=== PATIENT | male | born 1970 | race Caucasian/White ===

== ENCOUNTER 2018-06-28 00:03 | Inpatient (IN) | payer BC, SELFPAY ==
[2018-06-28] VITALS (42 sets, daily range): BP systolic 111–154; BP diastolic 59–89; PULSE 55–80; RESP 11–28; TEMP 36.5–38.9; O2SAT 81–99
--- NOTE | 2018-06-28 00:06 | W.ED.GENAD ---
Discharge Plan Disposition Patient Disposition: [facility] INPATIENT Condition: Fair Discharge Details Chief Complaint: Chest Pain Clinical Impression: Cholelithiasis, Pneumobilia Primary Care Provider: Obed Castro ED Provider: Sunny Squires [place] and New Rx's Prescriptions: No Action aspirin [Aspir-81] 81 MG tablet,delayed release (DR/EC) 81 mg PO QAM RF: 0 losartan 50 mg Tablet 50 mg PO DAILY RF: 0 torsemide 20 mg Tablet 20 mg PO DAILY RF: 0 spironolactone 25 mg Tablet 25 mg PO DAILY RF: 0 metoprolol succinate 25 mg Tablet Extended Release 24 Hr 25 mg PO DAILY RF: 0 Medical Decision Making Patient presenting with chest and abdominal pain. He is very uncomfortable. Vital signs are okay other than blood pressure being elevated. Abdomen is exquisitely tender in the right upper quadrant with a positive Rosa sign. Some tenderness in the epigastric and right lower quadrant but I suspect his symptoms are being caused by biliary colic/disease. Initial EKG has a fair amount of artifact but does not appear to have anything acute. Once we get him more comfortable, we will repeat this. IV established and fluids started. Laboratory studies obtained. Dilaudid and Zofran given for symptoms. CT scan of the abdomen pelvis ordered. Lab studies show a white count of 13. Liver function is normal. Chemistries with mild hyponatremia. Some mild renal insufficiency as well. He is on diuretics. He received a total of 1.5 mg of Dilaudid and 15 mg of Toradol. He is more comfortable but still has significant pain. CT scan shows cholelithiasis with pneumobilia. Otherwise unremarkable scan. On repeat evaluation he looks still exquisitely tender in the right upper quadrant with guarding and Roas sign. Case discussed with surgeon, Dr. Membreno. Patient is afebrile with normal LFTs. Not likely to be cholangitis despite the pneumobilia. Will admit for pain control and fluids and keep n.p.o. No antibiotics for now. Admitted to surgical service for further management. Lab Data Lab results reviewed: Yes I reviewed the patient's lab results. ECG Data Attestation: I personally reviewed and interpreted this ECG (s) as follows: Prior ECG tracings: not available for review Interpretation: Normal sinus rhythm at 65 with a PVC. Normal intervals. Nonspecific ST flattening. Nothing acute. HPI General Mode of arrival: ambulatory. Date/Time Provider Initiated Documentation: 06/28/18 00:06. Limitations to Documentation: no limitations. Information obtained by: patient. HPI Narrative: Patient presents to the ED with complaints of chest and abdominal pain. Pain started about 5 hours ago. It has waxed and waned in terms of intensity but has never gone away. States that it feels like he is in a vice. He has nausea but no vomiting. He did make himself vomit thinking it would make him feel better but it did not. Some radiation of discomfort to the back but mostly in the chest and upper abdomen region. Some mild shortness of breath. No diaphoresis or lightheadedness. Has never had this previously. Does have a history of hypertension and cardiomyopathy with the last EF that he recalls being about 50%. He has never smoked. He had prediabetes but with weight loss and exercise that is no longer an issue. He has not had any heart attacks that he is aware of. 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 Related Data Home Medications Medication Instructions Recorded Confirmed aspirin [Aspir 81] 81 mg PO QAM 10/28/12 06/28/18 losartan 50 mg PO DAILY 06/28/18 06/28/18 metoprolol succinate 25 mg PO DAILY 06/28/18 06/28/18 spironolactone 25 mg PO DAILY 06/28/18 06/28/18 torsemide 20 mg PO DAILY 06/28/18 06/28/18 Allergies Allergy/AdvReac Type Severity Reaction Status Date / Time amoxicillin [Amoxicillin] Allergy Skin Rash Unverified 08/11/15 06:34 Review of Systems Constitutional Denies chills, Denies fever(s), Denies headache(s) and Denies weakness Eyes Denies eye discharge and Denies eye pain ENT Denies otalgia, Denies headache(s), Denies neck pain, Denies sinus pain and Denies sore throat Cardiovascular Reports chest pain, Denies diaphoresis, Denies syncope, Denies pedal edema, Denies edema, Denies lightheadedness, Denies radiating jaw, neck or arm pain, Denies palpitations and Reports dyspnea Respiratory Denies cough and Reports dyspnea Gastrointestinal Reports abdominal pain, Denies diarrhea, Reports nausea and Denies vomiting Genitourinary Denies hematuria, Denies dysuria and Denies flank pain Musculoskeletal Reports back pain, Denies myalgias, Denies arthralgias, Denies neck pain and Denies numbness Integumentary/Breasts Denies erythema and Denies rash Neurologic Denies syncope, Denies headache(s), Denies focal weakness, Denies numbness and Denies weakness Endocrine Denies palpitations PFS Medical History Cardiomyopathy (Chronic) HTN (hypertension) (Chronic) Social History Smoking/Tobacco Use Status: Current-Occasional tobacco type: smokeless tobacco Surgical History S/P ablation operation for arrhythmia (Inactive) Exam Const General: cooperative, healthy appearing, uncomfortable, in distress and not diaphoretic Orientation: alert, awake and oriented x3 HENMT Head: normocephalic and atraumatic Mouth: moist mucous membranes Eyes Sclera: sclerae normal Neck Neck: trachea midline and supple Resp Effort & Inspection: tachypneic Auscultation: clear to auscultation bilaterally Cardio Rate: regular rate Rhythm: regular rhythm Heart Sounds: S1 normal and S2 normal Pulses: normal peripheral pulses GI Inspection: normal to inspection Palpation: soft, guarding in the RUQ and tender in the RUQ and Rosa's sign positive Skin General skin exam: no rashes or lesions noted Neuro General: alert, oriented x3, no focal motor deficits and CN's II-XI intact bilaterally Extrem General: normal to inspection and no clubbing, cyanosis or edema
[2018-06-28] MEDS: HYDROmorphone 2 MG/ML VIAL 0.5 MG IVP ×9 (00:29→20:57)
[2018-06-28] MEDS: Lactated Ringers 1,000 ML 150 ML IV ×6 (00:30→20:41)
[2018-06-28] MEDS: Ondansetron 4 MG/2 ML VIAL IVP (00:32)
[2018-06-28 00:41] LABS: Abs Immature Grans 0.02 k/cumm (0.0-0.09); Absolute Basophil Count 0.02 k/cumm (0.0-0.2); Absolute Eosinophil Count 0.07 k/cumm (0.0-0.7); Absolute Lymphocyte Count 1.76 k/cumm (1.2-3.4); Absolute Monocyte Count 0.96 k/cumm (0.11-0.7); Basophils % 0.2; Eosinophils % 0.6; HCT 42.6 % (40.0-50.0); HGB 14.6 g/dL (13.5-17.5); Immature Grans % 0.2; Lactate-non-spesis 1.2 mmol/L (0.6-1.4); Lymphocytes % 14.5; Mean Corp. HGB Concentration 34.3 g/dL (32.0-36.0); Mean Corpuscular Volume 84.5 fL (80-95); Mean Platelet Volume 10.3 fL (8.0-11.0); Monocytes % 7.9; Neutrophils % 76.6; Platelet Count 261 x1000/uL (130-400); RBC 5.04 m/cumm (4.50-6.00); White Blood Cell Count 12.13 k/cumm (4.4-10.8)
[2018-06-28 00:47] LABS: Absolute Neutrophil Count 9.29 k/cumm (1.2-6.7)
[2018-06-28 00:53] LABS: Lipase 109 U/L (73-393)
[2018-06-28] MEDS: Ketorolac 15 MG/ML VIAL IVP (00:56)
[2018-06-28 01:01] LABS: ALT 32 U/L (12-78); AST 19 U/L (15-37); Albumin 4.1 g/dL (3.4-5.0); Alkaline Phosphatase 55 U/L (46-116); Anion Gap 10.3 mmol/L (3-11); BUN 27 mg/dL (7-18); Bilirubin, Total 0.8 mg/dL (0.2-1.0); CO2 27.7 mmol/L (21.0-32.0); CREATININE 1.33 mg/dL (0.70-1.30); Chloride 95 mmol/L (98-107); Estimated GFR 57.15 (mL/min/1.73m2); Glucose 140 mg/dL (70-100); Potassium 3.6 mmol/L (3.5-5.1); Sodium 133 mmol/L (136-145)
[2018-06-28 01:04] LABS: Troponin I < 0.02 ng/mL (0.00-0.06)
[2018-06-28] MEDS: Omnipaque 350 MG/ML 100 ML BTL IJ (01:39)
--- NOTE | 2018-06-28 01:40 | DI.CT_ITS ---
SYMPTOMS/DIAGNOSIS: ABD PAIN WITH RUQ TENDERNESS/GUARDING ABDOMINAL AND PELVIC CT: The examination was carried out according to the usual protocol with intravenous administration of 100 cc's of Omnipaque 350. The lower thorax is unremarkable. A patchy liver is demonstrated. There is cholelithiasis and gas seen in the liver secondary to a sphincterotomy or possibly recent instrumentation. The pancreas is normal. There is no ductal dilatation or evidence of stones. The spleen is unremarkable. The adrenals are normal. The kidneys and ureters were evaluated and there are nonobstructing renal calculi. There is no evidence of hydronephrosis or hydroureter or ureterolithiasis. Colonic diverticulosis is noted without evidence of diverticulitis. There is nothing to suggest an acute appendix. The bladder and reproductive organs as visualized are unremarkable. There is no evidence of free air or free fluid in the intraperitoneal space. The soft tissues are unremarkable. There is no evidence of an abdominal aortic aneurysm. There is no evidence of lymphadenopathy. SUMMARY: Cholelithiasis is demonstrated. No acute abnormality is apparent.
--- NOTE | 2018-06-28 02:02 | DI.VRAD_ITS ---
EXAM: CT Abdomen and Pelvis With Intravenous Contrast EXAM DATE/TIME: 06/28/2018 12:26 AM CLINICAL HISTORY: 47 years old, male; Pain; Abdominal pain; Tenderness; Right upper quadrant (ruq); Patient HX: Abd. Pain, ruq pain and tenderness, vomiting TECHNIQUE: Axial computed tomography images of the abdomen and pelvis with intravenous contrast. All CT scans at this facility use at least one of these dose optimization techniques: automated exposure control; mA and/or kV adjustment per patient size (includes targeted exams where dose is matched to clinical indication); or iterative reconstruction. Coronal and sagittal reformatted images were created and reviewed. CONTRAST: 100 ml of Omnipaque 350 administered intravenously. COMPARISON: CT RENAL COLIC WO CONTRAST 08/11/2015 7:33 AM FINDINGS: Lower thorax: No acute findings. ABDOMEN: Liver: Hepatic steatosis. Gallbladder and bile ducts: Cholelithiasis. Pneumobilia, correlate with history of previous sphincterotomy or recent instrumentation. Pancreas: Normal. No ductal dilation. Spleen: Normal. No splenomegaly. Adrenals: Normal. No mass. Kidneys and ureters: Nonobstructing renal calculi. No obstructing urinary calculus or hydronephrosis. Stomach and bowel: Colonic diverticula. Appendix: No evidence of appendicitis. PELVIS: Bladder: Unremarkable as visualized. Reproductive: Unremarkable as visualized. ABDOMEN and PELVIS: Intraperitoneal space: Normal. No free air. No significant fluid collection. Bones/joints: No acute fracture. No dislocation. Soft tissues: Unremarkable. Vasculature: Normal. No abdominal aortic aneurysm. Lymph nodes: Normal. No enlarged lymph nodes. IMPRESSION: No acute finding. Cholelithiasis. Dictated and Authenticated by: Pankaj Coyle MD. Ordering:BHARTI FLEMING MD
[2018-06-28 09:25] LABS: Abs Immature Grans 0.01 k/cumm (0.0-0.09); Absolute Basophil Count 0.02 k/cumm (0.0-0.2); Absolute Eosinophil Count 0.07 k/cumm (0.0-0.7); Absolute Lymphocyte Count 1.24 k/cumm (1.2-3.4); Absolute Monocyte Count 0.79 k/cumm (0.11-0.7); Absolute Neutrophil Count 8.87 k/cumm (1.2-6.7); Basophils % 0.2; Eosinophils % 0.6; HCT 39.8 % (40.0-50.0); HGB 13.6 g/dL (13.5-17.5); Immature Grans % 0.1; Lymphocytes % 11.3; Mean Corp. HGB Concentration 34.2 g/dL (32.0-36.0); Mean Corpuscular Hemoglobin 29.1 pg (27.0-33.0); Mean Platelet Volume 9.7 fL (8.0-11.0); Monocytes % 7.2; Neutrophils % 80.6; Platelet Count 208 x1000/uL (130-400); RBC 4.68 m/cumm (4.50-6.00)
[2018-06-28 09:32] LABS: Lipase 92 U/L (73-393)
[2018-06-28 09:37] LABS: ALT 54 U/L (12-78); AST 38 U/L (15-37); Albumin 3.5 g/dL (3.4-5.0); Alkaline Phosphatase 56 U/L (46-116); Anion Gap 8.8 mmol/L (3-11); BUN 24 mg/dL (7-18); Bilirubin, Total 0.8 mg/dL (0.2-1.0); CO2 28.2 mmol/L (21.0-32.0); CREATININE 1.12 mg/dL (0.70-1.30); Calcium 9.3 mg/dL (8.5-10.1); Chloride 97 mmol/L (98-107); Glucose 125 mg/dL (70-100); Potassium 3.6 mmol/L (3.5-5.1); Sodium 134 mmol/L (136-145)
--- NOTE | 2018-06-28 10:08 | PDOC.CMIN ---
Care Management Initial Assess REASON FOR HOSPITALIZATION:: Cholelithiasis, Pneumobilia PAST MEDICAL HISTORY/PAST SURGICAL HISTORY:: Cardiomyopathy, HTN, ablation operation for arrythmia PREVIOUS FUNCTIONAL STATUS/SOCIAL/FAMILY SUPPORTS:: Vitor resides in [place]. 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 He is but remains in close contact with his former , Kassidy who serves as his POC. CURRENT FUNCTIONAL STATUS:: Vitor is readying for surgery, he appears alert and oriented and reports he is looking forward to having some water once he returns from the Operating Room, but can not really imagine having an appetite at this time. ADVANCE DIRECTIVES:: None on file at [facility]. Has patient been provided with information about the portal?: Yes Did the patient sign up for the portal?: No CODE STATUS:: Full Code INSURANCE COVERAGE / FINANCIAL ISSUES:: BC/BS CURRENT HOME/COMMUNITY SERVICES/EQUIPMENT:: No current services/equipment. PRIMARY CARE PHYSICIAN:: Obed Castro POTENTIAL DISCHARGE NEEDS:: Follow up appointment with PCP. PATIENT/FAMILY EDUCATION NEEDS:: Review discharge instructions, discuss Ask Me Three. ANTICIPATED BARRIERS TO DISCHARGE:: None identifed. TRANSPORTATION:: Via private vehicle. PLAN:: Vitor will eventually return home when ready per MD. He will follow up with his PCP and plan of care as prescribed. No additional supports anticipated at this time. He will transport via private vehicle with family.
--- NOTE | 2018-06-28 10:19 | INITIAL_ITS ---
Care Management Initial Assess REASON FOR HOSPITALIZATION:: Cholelithiasis, Pneumobilia PAST MEDICAL HISTORY/PAST SURGICAL HISTORY:: Cardiomyopathy, HTN, ablation operation for arrythmia PREVIOUS FUNCTIONAL STATUS/SOCIAL/FAMILY SUPPORTS:: Vitor resides in [place]. 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 He is but remains in close contact with his former , Kassidy who serves as his POC. CURRENT FUNCTIONAL STATUS:: Vitor is readying for surgery, he appears alert and oriented and reports he is looking forward to having some water once he returns from the Operating Room, but can not really imagine having an appetite at this time. ADVANCE DIRECTIVES:: None on file at [facility]. Has patient been provided with information about the portal?: Yes Did the patient sign up for the portal?: No CODE STATUS:: Full Code INSURANCE COVERAGE / FINANCIAL ISSUES:: BC/BS CURRENT HOME/COMMUNITY SERVICES/EQUIPMENT:: No current services/equipment. PRIMARY CARE PHYSICIAN:: Obed Castro POTENTIAL DISCHARGE NEEDS:: Follow up appointment with PCP. PATIENT/FAMILY EDUCATION NEEDS:: Review discharge instructions, discuss Ask Me Three. ANTICIPATED BARRIERS TO DISCHARGE:: None identifed. TRANSPORTATION:: Via private vehicle. PLAN:: Vitor will eventually return home when ready per MD. He will follow up with his PCP and plan of care as prescribed. No additional supports anticipated at this time. He will transport via private vehicle with family.
[2018-06-28] MEDS: ACETAMINOPHEN 1,000 MG/100 ML BTL 400 MG IVPB (10:25)
[2018-06-28] MEDS: Ketorolac 30 MG/ML VIAL IVP ×3 (10:25→23:29)
[2018-06-28] MEDS: PIPERACILLIN/TAZO 3.375 GM in Normal Saline 50 ML IVPB ×3 (10:45→22:19)
--- NOTE | 2018-06-28 11:43 | W.PM.HP.N ---
Date of service: 06/28/18 Time of Service: 11:43 Assessment and Plan (1) Cholecystitis: Current visit: Yes Status: Acute A\\ RUQ pain with gallstones and pneumobilia on CT scan WBC count 11, LFT's normal, Lipase normal. Contiued abdominal pain dispite NPO status and pain meds P\\ Laparoscopic Cholecystectomy possible IOC, possible open Will get ECHO results Will ask for a nerve block from anesthesia. Risks, benefits and complications were reviewed with the patient. Complications include but are not limited to bleeding, pain, infection, bile leak, injury to bowel, stomach, common bile duct, adverse reaction to the medications, Cardiac complications due to his Cardiomyopathy. Questions were entertained and answered to his satisfaction and he wished to proceed. No guarantees were given or implied. History of Present Illness Chief Complaint: Abdominal pain Narrative: Mr. Alaniz is a pleasant 47 year old male who after doing a 24 nancy fast ate dinner and almost immediatly developed severe RUQ and epigastric abdominal pain. He denies N/V. He was seen in the ED and workup revealed a slightly increased WBC count and Cholelithiasis with pneumobilia. He was admitted to our service at 02:30 am. This morning he developed another wave of severe abdominal pain and a fever. repeat labs showed improved WBC count and still normal LFT's. Lipase was also normal. Blood cultures were obtained and Zosyn was started. He was given a GI cocktail which did not help his pain. He was then given Toradol which did help. 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 Patient had Cardiac ablation. EF has gone from 14% to 49 %. last echo in January of 2018. Review of Systems Constitutional Reports system reviewed and no additional complaints, except as docu and Reports fever(s) Cardiovascular Comments: Hx of cardiomyopathy with Afib, s/p ablation. EF of 49-50 on last ECHO done in January 2018 Respiratory Reports system reviewed and no additional complaints, except as docu Gastrointestinal Reports as per HPI Genitourinary Reports system reviewed and no additional complaints, except as docu Musculoskeletal Reports system reviewed and no additional complaints, except as docu Hematologic/Lymphatic Denies easy bleeding and Denies easy bruising [facility] Family History Father Pancreatic cancer Medical History Cardiomyopathy (Chronic) HTN (hypertension) (Chronic) Social History housing: house marital status: single current occupational status: employed 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 pets and animals: Yes (dog) Smoking/Tobacco Use Status: Current-Occasional tobacco type: smokeless tobacco alcohol intake: current alcohol intake frequency: a few times a month substance use type: does not use Surgical History S/P ablation operation for arrhythmia (Inactive) Meds Home Medications Medication Instructions Recorded Confirmed Type aspirin [Aspir 81] 81 mg PO QAM 10/28/12 06/28/18 History losartan 50 mg PO DAILY 06/28/18 06/28/18 History metoprolol succinate 25 mg PO DAILY 06/28/18 06/28/18 History spironolactone 25 mg PO DAILY 06/28/18 06/28/18 History torsemide 20 mg PO DAILY 06/28/18 06/28/18 History Allergies Allergy/AdvReac Type Severity Reaction Status Date / Time amoxicillin [Amoxicillin] Allergy Skin Rash Unverified 08/11/15 06:34 Exam Const General: cooperative, comfortable and well groomed [facility] Head: normocephalic and atraumatic Resp Effort & Inspection: normal respiratory effort Auscultation: clear to auscultation bilaterally Cardio Rate: regular rate Rhythm: regular rhythm Heart Sounds: no gallops, no murmurs and no rubs GI Inspection: normal to inspection Palpation: soft and tender in the epigastrum and in the RUQ Auscultation: normal bowel sounds Extrem General: normal to inspection and no clubbing, cyanosis or edema Results Labs : 06/28/18 09:15 06/28/18 09:15 Laboratory Results - last 24 hr 06/28/18 06/28/18 06/28/18 00:24 00:24 00:24 WBC 12.13 H RBC 5.04 Hgb 14.6 Hct 42.6 MCV 84.5 MCH 29.0 MCHC 34.3 RDW 12.0 Plt Count 261 MPV 10.3 Immature Gran % 0.2 Neutrophils % 76.6 Lymphocytes % 14.5 Monocytes % 7.9 Eosinophils % 0.6 Basophils % 0.2 Absolute Neutrophils 9.29 H Absolute Lymphocytes 1.76 Absolute Monocytes 0.96 H Absolute Eosinophils 0.07 Absolute Basophils 0.02 Sodium 133 L Potassium 3.6 Chloride 95 L Carbon Dioxide 27.7 Anion Gap 10.3 BUN 27 H Creatinine 1.33 H Estimated GFR/1.73 m2 57.15 Glucose 140 H Lactate 1.2 Calcium 10.0 Magnesium 2.0 Total Bilirubin 0.8 AST 19 ALT 32 Alkaline Phosphatase 55 Troponin I < 0.02 Total Protein 8.0 Albumin 4.1 Lipase 06/28/18 06/28/18 06/28/18 00:24 04:30 09:15 WBC RBC Hgb Hct MCV MCH MCHC RDW Plt Count MPV Immature Gran % Neutrophils % Lymphocytes % Monocytes % Eosinophils % Basophils % Absolute Neutrophils Absolute Lymphocytes Absolute Monocytes Absolute Eosinophils Absolute Basophils Sodium 134 L Potassium 3.6 Chloride 97 L Carbon Dioxide 28.2 Anion Gap 8.8 BUN 24 H Creatinine 1.12 Estimated GFR/1.73 m2 >= 60.00 Glucose 125 H Lactate Calcium 9.3 Magnesium Total Bilirubin 0.8 AST 38 H ALT 54 Alkaline Phosphatase 56 Troponin I Cancelled Total Protein 7.0 Albumin 3.5 Lipase 109 06/28/18 06/28/18 09:15 09:15 WBC 11.00 H RBC 4.68 Hgb 13.6 Hct 39.8 L MCV 85.0 MCH 29.1 MCHC 34.2 RDW 12.0 Plt Count 208 MPV 9.7 Immature Gran % 0.1 Neutrophils % 80.6 Lymphocytes % 11.3 Monocytes % 7.2 Eosinophils % 0.6 Basophils % 0.2 Absolute Neutrophils 8.87 H Absolute Lymphocytes 1.24 Absolute Monocytes 0.79 H Absolute Eosinophils 0.07 Absolute Basophils 0.02 Sodium Potassium Chloride Carbon Dioxide Anion Gap BUN Creatinine Estimated GFR/1.73 m2 Glucose Lactate Calcium Magnesium Total Bilirubin AST ALT Alkaline Phosphatase Troponin I Total Protein Albumin Lipase 92 Last Vital Signs Temp 102.0 F H 06/28/18 09:30 Pulse 80 06/28/18 09:30 Resp 16 06/28/18 09:30 BP 122/76 06/28/18 09:30 Pulse Ox 92 L 06/28/18 09:30
[2018-06-28] MEDS: Bupivacaine 0.25% Pres-Free 30 ML VIAL (13:30)
[2018-06-28] MEDS: Cellulose,Oxidized 4X8 1 PACKET MC ×2 (14:38→15:07)
--- NOTE | 2018-06-28 14:42 | GB_PTH ---
PATIENT: Vitor Martinez LOC: U#:[id number] AGE/SX: 47/M ROOM: [id number] RE06/28/[address]: Deloris Schilling MD : [id number] BED: A DIS: 07/02/2018 SPEC #: [id number] RECD: 07/02/18 12:18 STATUS: LAXMI REQ #: [id number] TRACEE: 06/28/18 14:[address]: Deloris Schilling DEPT: Surgical Specimen RECD BY: Amber Cullen ENTERED: 07/02/18 12:19 SP TYPE: GB OTHR DR: Sergey Castro Tissues: 1 - GALLBLADDER Procedures: GROSS AND MICRO LEVEL 3 Comments: [id number]
[2018-06-28] MEDS: Lidocaine 1% Pres-Free 5 ML VIAL (15:12)
[2018-06-28] MEDS: ACETAMINOPHEN 1,000 MG/100 ML BTL 100 MG (16:34)
[2018-06-28] MEDS: Normal Saline Flush 10 ML SYR ×2 (17:04)
[2018-06-28] MEDS: Normal Saline Flush 10 ML SYR IVP ×3 (18:50→22:20)
[2018-06-28] MEDS: oxyCODONE 5 MG TAB PO (22:20)
[2018-06-28] MEDS: Normal Saline 500 ML IV (23:00)
[2018-06-28] MEDS: Acetaminophen 325 MG TAB 650 MG PO (23:30)
[2018-06-28] MEDS: HYDROmorphone 2 MG/ML VIAL IVP (23:31)
[2018-06-29] VITALS: BP 112/72; PULSE 65; RESP 20; TEMP 38.3; O2SAT 91
[2018-06-29] MEDS: Normal Saline Flush 10 ML SYR IVP ×8 (01:34→22:02)
[2018-06-29] MEDS: HYDROmorphone 2 MG/ML VIAL IVP ×7 (01:35→21:59)
[2018-06-29 04:05] VITALS: BP 141/75; PULSE 63; RESP 16; TEMP 36.8; O2SAT 95
[2018-06-29] MEDS: PIPERACILLIN/TAZO 3.375 GM in Normal Saline 50 ML IVPB ×4 (04:21→22:02)
[2018-06-29] MEDS: oxyCODONE 5 MG TAB PO ×4 (04:22→22:00)
[2018-06-29] MEDS: Lactated Ringers 1,000 ML 100 ML IV (06:55)
[2018-06-29 08:00] VITALS: BP 121/67; PULSE 72; RESP 21; TEMP 37.2; O2SAT 90
[2018-06-29 08:03] LABS: Abs Immature Grans 0.02 k/cumm (0.0-0.09); Absolute Basophil Count 0.01 k/cumm (0.0-0.2); Absolute Lymphocyte Count 0.84 k/cumm (1.2-3.4); Absolute Neutrophil Count 11.47 k/cumm (1.2-6.7); Basophils % 0.1; HCT 37.1 % (40.0-50.0); HGB 12.2 g/dL (13.5-17.5); Immature Grans % 0.2; Lymphocytes % 6.5; Mean Corp. HGB Concentration 32.9 g/dL (32.0-36.0); Mean Corpuscular Volume 88.3 fL (80-95); Mean Platelet Volume 10.6 fL (8.0-11.0); Monocytes % 4.3; Neutrophils % 88.9; Platelet Count 182 x1000/uL (130-400); RBC Distribution Width 12.2 % (11.8-14.1)
[2018-06-29 08:04] LABS: Absolute Monocyte Count 0.55 k/cumm (0.11-0.7)
[2018-06-29] MEDS: Ketorolac 30 MG/ML VIAL IVP ×2 (08:15→18:51)
[2018-06-29] MEDS: Acetaminophen 325 MG TAB 650 MG PO ×3 (08:16→22:00)
[2018-06-29 08:23] LABS: ALT 173 U/L (12-78); AST 88 U/L (15-37); Albumin 2.9 g/dL (3.4-5.0); Alkaline Phosphatase 63 U/L (46-116); Anion Gap 8.7 mmol/L (3-11); BUN 15 mg/dL (7-18); Bilirubin, Total 1.6 mg/dL (0.2-1.0); CO2 27.3 mmol/L (21.0-32.0); CREATININE 1.07 mg/dL (0.70-1.30); Calcium 8.4 mg/dL (8.5-10.1); Chloride 100 mmol/L (98-107); Glucose 127 mg/dL (70-100); Potassium 4.2 mmol/L (3.5-5.1); Sodium 136 mmol/L (136-145); Total Protein 6.7 g/dL (6.4-8.2)
[2018-06-29] MEDS: Metoprolol CR 25 MG TABCR PO (08:51)
[2018-06-29] MEDS: Spironolactone 25 MG TAB PO (08:51)
[2018-06-29] MEDS: Losartan 50 MG TAB PO (08:51)
--- NOTE | 2018-06-29 09:31 | W.PM.PROGNOT ---
Date of Service Date of service: 06/29/18 Time of Service: 09:31 Assessment and Plan (1) Cholelithiasis with acute on chronic cholecystitis: Current visit: Yes Status: Chronic (2) S/P laparoscopic cholecystectomy: Current visit: Yes Status: Acute A\\ POD #1 s/p Lap. [place]. Difficult surgery with some bleeding from Liver and spill of Bile from the gallbladder. Having some pain and WBC count is above 12. P\\ 1. Infection: No fevers but increased WBC count. This may be all inflammatory. Will keep on IV antibiotics for 24 more hours and recheck CBC tomorrow. 2. Pain: Starting to Give Dilauded less frequently. Will try to wean him to Oxycodon and Toradol and Tylenol. 3. Activity: Up and walking the Hallways 4. Elevated LFT's: Most likely due to the bleeding and the spill of Bile. Will recheck tomorrow. 5. Diet: low fat regular diet 6. Disposition: Hopefully home tomorrow if his labs look better and he is not taking any more dilauded. Subjective Interval history since last seen: Mr. Martinez is doing OK this am. he still is having some pain especailly with deep breathing. He is passing flatus and is drinking fluids. he has eaten a little bit this morning. No BM since admission. Exam Const General: cooperative and no acute distress Eyes Sclera: scleral abnormality (slight yellow discoloration noted) bilaterally Resp Effort & Inspection: normal respiratory effort Auscultation: clear to auscultation bilaterally Cardio Rate: regular rate Rhythm: regular rhythm Heart Sounds: no gallops, no murmurs and no rubs GI Inspection: incision (c/d/i) Palpation: soft and tender (as expected around the incisions in the rUQ and epigastric area) Auscultation: normal bowel sounds Objective Objective Clinical Data: Abnormal lab results 06/28/18 06/29/18 06/29/18 Range/Units 09:15 07:08 07:08 WBC 12.90 H (4.4-10.8) k/cumm RBC 4.20 L (4.50-6.00) m/cumm Hgb 12.2 L (13.5-17.5) g/dL Hct 37.1 L (40.0-50.0) % Absolute Neutrophils 11.47 H (1.2-6.7) k/cumm Absolute Lymphocytes 0.84 L (1.2-3.4) k/cumm Sodium 134 L (136-145) mmol/L Chloride 97 L (98-107) mmol/L BUN 24 H (7-18) mg/dL Glucose 125 H 127 H (70-100) mg/dL Calcium 8.4 L (8.5-10.1) mg/dL Total Bilirubin 1.6 H (0.2-1.0) mg/dL AST 38 H 88 H (15-37) U/L ALT 173 H (12-78) U/L Albumin 2.9 L (3.4-5.0) g/dL Vital Signs Temperature 98.2 F 06/29/18 04:05 Temperature Source Tympanic 06/29/18 04:05 Pulse 63 06/29/18 04:05 Pulse Rhythm Regular 06/28/18 23:30 Pulse 72 06/28/18 03:10 Respiratory Rate 16 06/29/18 04:05 Respiratory Effort 06/28/18 23:30 Respiratory Depth Shallow 06/28/18 23:30 Respiratory Pattern Tachypnea 06/28/18 23:30 Blood Pressure 141/75 H 06/29/18 04:05 Blood Pressure Mean 73 06/28/18 03:01 Pulse Oximetry 95 06/29/18 04:05 Respiratory End-tidal CO2 25 06/28/18 17:05 Oxygen Delivery Method Nasal Cannula 06/29/18 04:05 Oxygen Flow Rate 2 06/29/18 04:05 Fraction of Inspired Oxygen (FIO2) 2 06/28/18 20:40 Pain Level 4 06/29/18 08:52 Comment 06/29/18 04:05 Intake & Output 06/28/18 06/28/18 06/29/18 11:59 23:59 11:59 Intake Total 952.5 / 952.5 4434.834 / 4434.834 839.333 / 839.333 Output Total 1250 / 1250 600 / 600 Balance 952.5 / 952.5 3184.834 / 3184.834 239.333 / 239.333 Weight 234 lb 15.992 oz Intake: IV 952.5 / 952.5 4184.834 / 4184.834 839.333 / 839.333 Oral 250 / 250 Output: Urine 1150 / 1150 600 / 600 Estimated Blood Loss 100 / 100 Other: Urine Color Light Rosario Light Rosario Urine Appearance Clear Clear Comment voids independently in toilet, voiding adequately Voiding Methods Toilet Toilet Laboratory Results WBC 12.90 k/cumm (4.4-10.8) H 06/29/18 07:08 RBC 4.20 m/cumm (4.50-6.00) L 06/29/18 07:08 Hgb 12.2 g/dL (13.5-17.5) L 06/29/18 07:08 Hct 37.1 % (40.0-50.0) L 06/29/18 07:08 MCV 88.3 fL (80-95) D 06/29/18 07:08 MCH 29.0 pg (27.0-33.0) 06/29/18 07:08 MCHC 32.9 g/dL (32.0-36.0) 06/29/18 07:08 RDW 12.2 % (11.8-14.1) 06/29/18 07:08 Plt Count 182 x1000/uL (130-400) 06/29/18 07:08 MPV 10.6 fL (8.0-11.0) 06/29/18 07:08 Immature Gran % 0.2 06/29/18 07:08 Neutrophils % 88.9 06/29/18 07:08 Lymphocytes % 6.5 06/29/18 07:08 Monocytes % 4.3 06/29/18 07:08 Eosinophils % 0.0 06/29/18 07:08 Basophils % 0.1 06/29/18 07:08 Absolute Neutrophils 11.47 k/cumm (1.2-6.7) H 06/29/18 07:08 Absolute Lymphocytes 0.84 k/cumm (1.2-3.4) L 06/29/18 07:08 Absolute Monocytes 0.55 k/cumm (0.11-0.7) 06/29/18 07:08 Absolute Eosinophils 0.00 k/cumm (0.0-0.7) 06/29/18 07:08 Absolute Basophils 0.01 k/cumm (0.0-0.2) 06/29/18 07:08 Sodium 136 mmol/L (136-145) 06/29/18 07:08 Potassium 4.2 mmol/L (3.5-5.1) 06/29/18 07:08 Chloride 100 mmol/L (98-107) 06/29/18 07:08 Carbon Dioxide 27.3 mmol/L (21.0-32.0) 06/29/18 07:08 Anion Gap 8.7 mmol/L (3-11) 06/29/18 07:08 BUN 15 mg/dL (7-18) D 06/29/18 07:08 Creatinine 1.07 mg/dL (0.70-1.30) 06/29/18 07:08 Estimated GFR/1.73 m2 >= 60.00 (mL/min/1.73m2) 06/29/18 07:08 Glucose 127 mg/dL (70-100) H 06/29/18 07:08 Lactate 1.2 mmol/L (0.6-1.4) 06/28/18 00:24 Calcium 8.4 mg/dL (8.5-10.1) L 06/29/18 07:08 Magnesium 2.0 mg/dL (1.8-2.4) 06/28/18 00:24 Total Bilirubin 1.6 mg/dL (0.2-1.0) H 06/29/18 07:08 AST 88 U/L (15-37) H 06/29/18 07:08 ALT 173 U/L (12-78) H 06/29/18 07:08 Alkaline Phosphatase 63 U/L (46-116) 06/29/18 07:08 Troponin I < 0.02 ng/mL (0.00-0.06) 06/28/18 00:24 Total Protein 6.7 g/dL (6.4-8.2) 06/29/18 07:08 Albumin 2.9 g/dL (3.4-5.0) L 06/29/18 07:08 Lipase 92 U/L (73-393) 06/28/18 09:15
--- NOTE | 2018-06-29 09:37 | ROE_ITS ---
REPORT OF OPERATIVE PROCEDURE DATE OF SURGERY June 28, 2018 PREOPERATIVE DIAGNOSIS Acute cholecystitis. POSTOPERATIVE DIAGNOSES Acute and chronic cholecystitis with cholelithiasis. PROCEDURE Laparoscopic cholecystectomy. ANESTHESIA 1. General endotracheal anesthesia. 2. Rectus block done by anesthesia. FREELANCE MAKEUP ARTIST Gm Segovia C.R.N.A. SURGEON Xavi Schilling M.D. YOUTH CARE SPECIALIST JG Hutchins BLOOD LOSS 100 cc URINE OUTPUT 100 cc SPECIMENS 1. Gallbladder. 2. Bile for cultures. COMPLICATIONS No immediate complications. INDICATIONS Mr. Martinez is a 47-year-old gentleman who was admitted at 2:30 this morning with right upper benji drant pain and epigastric pain. CT scan showed gallstones, as well as pneumobilia. On exam in the [facility], the patient continued to have abdominal pain after receiving Dilaudid, Toradol and Tylenol. H e was guarding, there was no rebound. He also started to have fevers, although white count was improv ed from 12.8 on admission to 11 this morning. The risks, benefits and complications of the procedure were reviewed with him and he wished to proceed. No guarantees were given or implied. FINDINGS Dilated and thickened gallbladder wall with spots of necrosis and severe inflammation. Multiple small stones within the gallbladder. PROCEDURE After informed consent was obtained, the patient was taken to the Operating Room, placed in the supin e position. Monitors were applied. SCDs were applied. He was then placed under general anesthesia a nd intubated without difficulty. His abdomen was then clipped and prepped and anesthesia did a rectus muscle block, please see separate note. After the block was done, a Ribeiro catheter was placed in a s tandard fashion. Next, the abdomen was prepped and draped in a sterile surgical fashion, and a time-o ut was done. The patient's name, date of , procedure type and site, allergies to medications, DV T prophylaxis, antibiotic given and any concerns, oxygen and fire risk were all reviewed. Next 0.5% M arcaine mixed 1% lidocaine was injected just above the umbilicus. A small 5-mm incision was made. Th e skin was grasped on either side with penetrating towel clamps, and while pulling up on the skin, a 5-mm port was placed into the abdomen under direct visualization. The abdomen was insufflated and the camera was placed. The bowel and mesentery under the port were inspected and no injuries were noted. Next, three more ports were placed, a 12-mm port in the subxiphoid area and two 5-mm ports in the [facility] upper quadrant. The gallbladder was then inspected, it was quite dilated, edematous and there wer e a few areas of spot necrosis. There was a lot of inflammation noted. I was unable to grasp the gall bladder due to the tension, so a laparoscopic needle was placed into the gallbladder and about 30 cc of bile was removed, and this was sent to the lab for cultures. The gallbladder was then grasped and tented towards the right shoulder. The patient's bed was turned to the left and the head was brought up to allow better visualization of the neck. Some fatty tissue was noted around the neck of the gall bladder. This was gently dissected using [place] dissectors and cautery. Once the cystic duct was id entified it was dissected 360 degrees, I was able to see the liver bed behind it. The ducts were norm al in size. Three clips were placed, one proximal and two distal, and the duct was cut. The cystic ar vikki was then identified just medial to the duct and this was dissected 360 degrees and three clips w ere placed, one proximal and two distal and the artery was cut. A small accessory artery was identifi ed and clips were placed and the artery was cut. At this point, unfortunately, the clip on the gallbl adder duct side came off and there was quite a bit of spill of green bile with tons of small little s tones, and these were suctioned out, and another clip was placed quickly. The gallbladder was then p ulled up and using cautery, it was removed from the liver bed. Once removed, it was placed into an En doCatch bag and pulled through the 12-mm port site. The port was replaced and the gallbladder fossa w as identified. There was quite a bit of oozing noted from the liver bed and Surgicel was applied, as well a Ray-George and pressure was held. The abdomen was then irrigated, and all the bile and small ston es were removed. The Ray- George was gently removed and surgical; still bleeding was noted. Most of it w as cauterized. The old Surgicel and 4x4 were removed through the 12-mm port site and new Surgicel and 4x4 were placed into the gallbladder fossa, putting some pressure on the area. Irrigation was ruchi nued to remove clots. The Surgicel and 4x4 were then gently pulled up from the bottom up and areas i n the liver were cauterized as I saw bleeding. The Surgicel and 4x4 were then removed from the abdome n and the area was irrigated again. A total of three liters of fluid were used to irrigate. At the en d, the affluent was clear, it was not bile tinged and not blood tinged anymore. The liver bed was ins pected one more time, no bleeding was noted. The clips were noted in good position on both the cystic duct and cystic artery. Once all the fluid was suctioned out and the area was dry, the patient's bed was leveled and the rest of the lidocaine/Marcaine mixture was injected above the liver bed to help with postoperative shoulder pain. The two right upper quadrant 5-mm ports were removed under direct visualization and no bleeding was noted from the fascia. The 12-mm port was removed and again, no bl eeding was noted from the fascia. Lastly, the camera was removed and the insufflation was stopped. Th e rest of the gas was removed through the 5-mm port and this port was removed. The fascia of the 12-m m port site was closed using a #0-Vicryl suture. The skin was closed with #4-0 Vicryl. The skin was c leaned and dry and Skin Affix was applied. The patient was woken up, extubated and taken back to [facility] in stable condition. Sponge, instrument, and needle counts were correct at the end of the case x2.
--- NOTE | 2018-06-29 11:03 | PHARADMIT ---
Admission Pharmacy Clinical Review Cholelithiasis, Pneumonia Code Status Full Code Current Weight Wgt- 106.6 kg Renally Cleared and Narrow Therapeutic Index Meds CrCl~ 80 mL/min Meds-OK QTc Value / Action Taken QTc-408 na BP Control, Fever BP-141/75 Tmax- 37.0C Electrolytes reviewed Na- 136 K+4.2 Mag-2.0 DVT Prophylaxis none Opiate Usage / Scheduled Bowel Regimen Ordered Yes No Plt/SCr for Heparin / Enoxaparin Plts-182 SCr-1.07 INR for Warfarin na H/H stable, WBC/Bands H&H- 12.2/37.1 WBC- 12.90 Antibiotic appropriateness Zosyn Cultures and Sensitivities Gall Bladder- Gram-neg major, Blood -pnding Surgical ABX d/c within 24 hr na DM control / Insulin Dosing BG- 127 Heart Failure (Check EF%) (EBVERLY's, B-Block, Diuretics) Losartan, Toprol-XL, Torsemide, Spironolactone IV to PO Switch no Home Meds Reviewed Yes Home Meds Not Ordered ASA Comments AST- 88 (15-37) ALT-173 (12.78)
[2018-06-29 12:14] VITALS: BP 101/65; PULSE 77; RESP 20; TEMP 37.2; O2SAT 91
--- NOTE | 2018-06-29 14:19 | PDOC.CMPRO ---
- If Service Date Differs Date of service: 06/29/18 Time of Service: 14:19 Care Management Progress Note S/O: Pt is doing well this morning, he is lying in bed and visiting with friends when this designer writer visits. Multiple coworkers and friends have been in to visit with him throughout the day yesterday and today which he appreciates. He will potentially be ready for DC tomorrow pending pain management and ability to maintain diet. A: 47 y/o male admitted 06/28/18 with cholelithiasis. P: Pt to return home with no anticipated services once medically cleared. He will F/U with Dr. Schilling and plan of care as prescribed. Family to transport.
--- NOTE | 2018-06-29 14:26 | CMPROGNOTE_ITS ---
- If Service Date Differs Date of service: 06/29/18 Time of Service: 14:19 Care Management Progress Note S/O: Pt is doing well this morning, he is lying in bed and visiting with friends when this press writer visits. Multiple coworkers and friends have been in to visit with him throughout the day yesterday and today which he appreciates. He will potentially be ready for DC tomorrow pending pain management and ability to maintain diet. A: 47 y/o male admitted 06/28/18 with cholelithiasis. P: Pt to return home with no anticipated services once medically cleared. He will F/U with Dr. Schilling and plan of care as prescribed. Family to transport.
--- NOTE | 2018-06-29 14:26 | CHAPLAIN ---
Vitor was resting in bed when I visited. He seems comfortable being here. His exwife, with whom he remains friendly, has been in to visit and help her manage things at his home. 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 His co-workers have been in touch by phone. He has adult children who are not in the area. I explained my role and offered support.
[2018-06-29] MEDS: Polyethylene Glycol 3350 17 GM PACKET PO (18:51)
[2018-06-29 21:51] VITALS: BP 97/57; PULSE 91; RESP 19; TEMP 38.1; O2SAT 92
[2018-06-29 22:53] VITALS: BP 100/62; PULSE 85; RESP 20; TEMP 38.6; O2SAT 95
[2018-06-30] MEDS: HYDROmorphone 2 MG/ML VIAL IVP ×9 (02:38→19:38)
[2018-06-30 03:32] VITALS: BP 116/76; PULSE 84; RESP 20; TEMP 37.8; O2SAT 95
[2018-06-30] MEDS: oxyCODONE 5 MG TAB PO ×4 (04:07→21:31)
[2018-06-30] MEDS: PIPERACILLIN/TAZO 3.375 GM in Normal Saline 50 ML IVPB ×4 (04:07→21:31)
[2018-06-30] MEDS: Acetaminophen 325 MG TAB 650 MG PO ×4 (04:07→21:30)
[2018-06-30] MEDS: Ketorolac 30 MG/ML VIAL IVP ×3 (06:41→19:39)
[2018-06-30 07:27] LABS: Abs Immature Grans 0.02 k/cumm (0.0-0.09); Absolute Basophil Count 0.02 k/cumm (0.0-0.2); Absolute Eosinophil Count 0.08 k/cumm (0.0-0.7); Absolute Lymphocyte Count 0.94 k/cumm (1.2-3.4); Absolute Monocyte Count 0.64 k/cumm (0.11-0.7); Basophils % 0.2; Eosinophils % 0.7; HCT 34.7 % (40.0-50.0); HGB 11.4 g/dL (13.5-17.5); Immature Grans % 0.2; Lymphocytes % 8.7; Mean Corp. HGB Concentration 32.9 g/dL (32.0-36.0); Mean Corpuscular Hemoglobin 29.2 pg (27.0-33.0); Mean Platelet Volume 10.6 fL (8.0-11.0); Monocytes % 5.9; Neutrophils % 84.3; Platelet Count 193 x1000/uL (130-400); RBC Distribution Width 12.2 % (11.8-14.1)
[2018-06-30 07:41] LABS: ALT 107 U/L (12-78); AST 37 U/L (15-37); Albumin 2.6 g/dL (3.4-5.0); Alkaline Phosphatase 64 U/L (46-116); Anion Gap 7.8 mmol/L (3-11); BUN 15 mg/dL (7-18); Bilirubin, Total 1.4 mg/dL (0.2-1.0); CO2 29.2 mmol/L (21.0-32.0); CREATININE 1.27 mg/dL (0.70-1.30); Calcium 8.3 mg/dL (8.5-10.1); Chloride 99 mmol/L (98-107); Glucose 124 mg/dL (70-100); Potassium 3.6 mmol/L (3.5-5.1); Sodium 136 mmol/L (136-145); Total Protein 6.3 g/dL (6.4-8.2)
[2018-06-30 07:55] VITALS: BP 98/62; PULSE 65; RESP 20; TEMP 35.8; O2SAT 96
[2018-06-30] MEDS: Spironolactone 25 MG TAB PO (08:59)
[2018-06-30] MEDS: Torsemide 20 MG TAB PO (08:59)
[2018-06-30] MEDS: Normal Saline Flush 10 ML SYR IVP ×9 (09:00→21:31)
--- NOTE | 2018-06-30 09:40 | PGE_ITS ---
Date of Service Date of service: 06/30/18 Time of Service: 09:28 Assessment and Plan (1) Cholelithiasis with acute on chronic cholecystitis: Current visit: Yes Status: Chronic (2) S/P laparoscopic cholecystectomy: Current visit: Yes Status: Acute A\\ POD #2 s/p Lap. [place]. Difficult surgery with some bleeding from Liver and spill of Bile from the gallbladder. Still requiring Dilaudid for pain Cultures growing Gram negative RODS P\\ 1. Infection: Mild fevers overnight when pain was out of control and he wasn 't breathing well. Had to use O2. WBC count normal today. Cultures Positive. Will keep on antibiotics for 7 days total. Recheck CBC in am. 2. Pain: Starting to Give Dilauded less frequently. Will try to wean him to Oxycodon and Toradol and Tylenol. 3. Activity: Up and walking the Hallways 4. Elevated LFT's: Most likely due to the bleeding and the spill of Bile. Labs improving. Billirubin still slightly increased. recheck CMP tomorrow. 5. Diet: low fat regular diet 6. Disposition: Home once Bilirubin is normal and pain is controlled off dilauded. Subjective Interval history since last seen: Nelson is doing well. He tried to go without Dilauded all night and his pain got out of control. He has taken some dilauded now and his pain is better. He is not eating a lot yet as he is not hungry. He is passing gas. No BM today. he had some Miralax last night and has been sipping on prune juice. He had some low grade fevers and had to be started on oxygen. Exam Const General: cooperative, healthy appearing and no acute distress Resp Effort & Inspection: normal respiratory effort Auscultation: clear to auscultation bilaterally Cardio Rate: regular rate Rhythm: regular rhythm Heart Sounds: no gallops, no murmurs and no rubs GI Inspection: normal to inspection and incision (c/d/i) Palpation: soft and tender (guarding but no rebound) in the epigastrum and in the RUQ Auscultation: normal bowel sounds Objective Objective Clinical Data: Abnormal lab results 06/30/18 06/30/18 Range/Units 06:28 06:28 RBC 3.90 L (4.50-6.00) m/cumm Hgb 11.4 L (13.5-17.5) g/dL Hct 34.7 L (40.0-50.0) % Absolute Neutrophils 9.10 H (1.2-6.7) k/cumm Absolute Lymphocytes 0.94 L (1.2-3.4) k/cumm Glucose 124 H (70-100) mg/dL Calcium 8.3 L (8.5-10.1) mg/dL Total Bilirubin 1.4 H (0.2-1.0) mg/dL ALT 107 H (12-78) U/L Total Protein 6.3 L (6.4-8.2) g/dL Albumin 2.6 L (3.4-5.0) g/dL Vital Signs Temperature 100.0 F H 06/30/18 03:32 Temperature Source Tympanic 06/30/18 03:32 Pulse 84 06/30/18 03:32 Pulse Rhythm Regular 06/29/18 20:00 Pulse 72 06/28/18 03:10 Respiratory Rate 20 06/30/18 03:32 Respiratory Effort 06/29/18 20:00 Respiratory Depth Shallow 06/29/18 20:00 Respiratory Pattern Tachypnea 06/29/18 20:00 Blood Pressure 116/76 06/30/18 03:32 Blood Pressure Mean 73 06/28/18 03:01 Pulse Oximetry 95 06/30/18 03:32 Respiratory End-tidal CO2 25 06/28/18 17:05 Oxygen Delivery Method Nasal Cannula 06/30/18 03:32 Oxygen Flow Rate 2 06/30/18 03:32 Fraction of Inspired Oxygen (FIO2) 2 06/28/18 20:40 Pain Level 5 06/30/18 09:00 Comment 06/29/18 04:05 Intake & Output 06/29/18 06/29/18 06/30/18 11:59 23:59 11:59 Intake Total 1321.000 / 1321.000 880 / 880 Output Total 600 / 600 600 / 600 Balance 721.000 / 721.000 280 / 280 Intake: IV 1321.000 / 1321.000 140 / 140 Oral 740 / 740 Output: Urine 600 / 600 600 / 600 Other: Urine Color Light Rosario Yellow Light Rosario Urine Appearance Clear Clear Urine Odor Normal Comment voids independently in toilet, voiding adequately voided in toilet voiding in toilet Voiding Methods Toilet Toilet Toilet Laboratory Results WBC 10.80 k/cumm (4.4-10.8) 06/30/18 06:28 RBC 3.90 m/cumm (4.50-6.00) L 06/30/18 06:28 Hgb 11.4 g/dL (13.5-17.5) L 06/30/18 06:28 Hct 34.7 % (40.0-50.0) L 06/30/18 06:28 MCV 89.0 fL (80-95) 06/30/18 06:28 MCH 29.2 pg (27.0-33.0) 06/30/18 06:28 MCHC 32.9 g/dL (32.0-36.0) 06/30/18 06:28 RDW 12.2 % (11.8-14.1) 06/30/18 06:28 Plt Count 193 x1000/uL (130-400) 06/30/18 06:28 MPV 10.6 fL (8.0-11.0) 06/30/18 06:28 Immature Gran % 0.2 06/30/18 06:28 Neutrophils % 84.3 06/30/18 06:28 Lymphocytes % 8.7 06/30/18 06:28 Monocytes % 5.9 06/30/18 06:28 Eosinophils % 0.7 06/30/18 06:28 Basophils % 0.2 06/30/18 06:28 Absolute Neutrophils 9.10 k/cumm (1.2-6.7) H 06/30/18 06:28 Absolute Lymphocytes 0.94 k/cumm (1.2-3.4) L 06/30/18 06:28 Absolute Monocytes 0.64 k/cumm (0.11-0.7) 06/30/18 06:28 Absolute Eosinophils 0.08 k/cumm (0.0-0.7) 06/30/18 06:28 Absolute Basophils 0.02 k/cumm (0.0-0.2) 06/30/18 06:28 Sodium 136 mmol/L (136-145) 06/30/18 06:28 Potassium 3.6 mmol/L (3.5-5.1) 06/30/18 06:28 Chloride 99 mmol/L (98-107) 06/30/18 06:28 Carbon Dioxide 29.2 mmol/L (21.0-32.0) 06/30/18 06:28 Anion Gap 7.8 mmol/L (3-11) 06/30/18 06:28 BUN 15 mg/dL (7-18) 06/30/18 06:28 Creatinine 1.27 mg/dL (0.70-1.30) 06/30/18 06:28 Estimated GFR/1.73 m2 >= 60.00 (mL/min/1.73m2) 06/30/18 06:28 Glucose 124 mg/dL (70-100) H 06/30/18 06:28 Lactate 1.2 mmol/L (0.6-1.4) 06/28/18 00:24 Calcium 8.3 mg/dL (8.5-10.1) L 06/30/18 06:28 Magnesium 2.0 mg/dL (1.8-2.4) 06/28/18 00:24 Total Bilirubin 1.4 mg/dL (0.2-1.0) H 06/30/18 06:28 AST 37 U/L (15-37) 06/30/18 06:28 ALT 107 U/L (12-78) H 06/30/18 06:28 Alkaline Phosphatase 64 U/L (46-116) 06/30/18 06:28 Troponin I < 0.02 ng/mL (0.00-0.06) 06/28/18 00:24 Total Protein 6.3 g/dL (6.4-8.2) L 06/30/18 06:28 Albumin 2.6 g/dL (3.4-5.0) L 06/30/18 06:28 Lipase 92 U/L (73-393) 06/28/18 09:15
[2018-06-30] MEDS: Normal Saline 1,000 ML 1000 ML IV (09:49)
[2018-06-30 09:50] VITALS: BP 112/73; PULSE 69; RESP 16; TEMP 37.3; O2SAT 96
[2018-06-30] MEDS: Normal Saline 500 ML 30 ML IV (11:02)
--- NOTE | 2018-06-30 12:27 | PDOC.CMPRO ---
- If Service Date Differs Date of service: 06/30/18 Time of Service: 12:27 Care Management Progress Note S/O: Vitor continues to require IV pain medication, and was febrile over night. He continues on IV antibiotics for positive cultures. He is not ready to return home at this time he will be discharged when medically ready. Today he is lying in bed with a cloth on his forehead. He is ambulating PRN. A: 47 y/o male admitted 06/28/18 with cholelithiasis. P: Pt to return home with no anticipated services once medically cleared. He will F/U with Dr. Schilling and plan of care as prescribed. Family to transport.
[2018-06-30 13:25] VITALS: BP 100/63; PULSE 82; RESP 15; TEMP 37.3; O2SAT 96
[2018-06-30 16:02] VITALS: BP 142/87; PULSE 78; RESP 20; TEMP 37.4; O2SAT 97
[2018-06-30 21:00] VITALS: BP 100/65; PULSE 79; RESP 20; TEMP 36.8; O2SAT 95
[2018-07-01] VITALS (14 sets, daily range): BP systolic 100–134; BP diastolic 65–91; PULSE 71–87; RESP 17–22; TEMP 36.5–37.9; O2SAT 90–99
[2018-07-01] MEDS: Acetaminophen 325 MG TAB 650 MG PO ×4 (03:26→22:13)
[2018-07-01] MEDS: oxyCODONE 5 MG TAB PO ×4 (03:27→22:13)
[2018-07-01] MEDS: PIPERACILLIN/TAZO 3.375 GM in Normal Saline 50 ML IVPB ×4 (03:35→21:39)
[2018-07-01] MEDS: Metoprolol CR 25 MG TABCR PO (06:21)
[2018-07-01] MEDS: Losartan 50 MG TAB PO (06:21)
[2018-07-01 07:02] LABS: Abs Immature Grans 0.02 k/cumm (0.0-0.09); Absolute Basophil Count 0.01 k/cumm (0.0-0.2); Absolute Eosinophil Count 0.23 k/cumm (0.0-0.7); Absolute Lymphocyte Count 1.08 k/cumm (1.2-3.4); Absolute Monocyte Count 0.79 k/cumm (0.11-0.7); Absolute Neutrophil Count 6.92 k/cumm (1.2-6.7); Basophils % 0.1; Eosinophils % 2.5; HCT 34.9 % (40.0-50.0); HGB 11.2 g/dL (13.5-17.5); Immature Grans % 0.2; Lymphocytes % 11.9; Mean Corp. HGB Concentration 32.1 g/dL (32.0-36.0); Mean Corpuscular Hemoglobin 28.9 pg (27.0-33.0); Mean Corpuscular Volume 90.2 fL (80-95); Mean Platelet Volume 10.6 fL (8.0-11.0); Monocytes % 8.7; Neutrophils % 76.6; Platelet Count 205 x1000/uL (130-400); RBC 3.87 m/cumm (4.50-6.00); RBC Distribution Width 12.2 % (11.8-14.1); White Blood Cell Count 9.05 k/cumm (4.4-10.8)
[2018-07-01 07:13] LABS: ALT 83 U/L (12-78); AST 27 U/L (15-37); Albumin 2.4 g/dL (3.4-5.0); Alkaline Phosphatase 79 U/L (46-116); Anion Gap 7.5 mmol/L (3-11); BUN 13 mg/dL (7-18); Bilirubin, Total 1.4 mg/dL (0.2-1.0); CO2 30.5 mmol/L (21.0-32.0); CREATININE 1.24 mg/dL (0.70-1.30); Calcium 8.2 mg/dL (8.5-10.1); Chloride 98 mmol/L (98-107); Glucose 108 mg/dL (70-100); Potassium 3.5 mmol/L (3.5-5.1); Sodium 136 mmol/L (136-145); Total Protein 6.6 g/dL (6.4-8.2)
--- NOTE | 2018-07-01 07:25 | PGE_ITS ---
Date of Service Date of service: 07/01/18 Time of Service: 07:00 Assessment and Plan (1) Cholelithiasis with acute on chronic cholecystitis: Current visit: Yes Status: Chronic (2) S/P laparoscopic cholecystectomy: Current visit: Yes Status: Acute A\\ POD #3 s/p Lap. [place]. Difficult surgery with some bleeding from Liver and spill of Bile from the gallbladder. Did not required Dilauded all night until this am when he had acute onset of left chest pain that then resolved on its own. Cultures growing Gram negative RODS, sensitive to Zosyn and Trimethoprime/ sulbactam Blood cultures negative P\\ 1. Infection: WBC count continues to be normal. Platelets are normal. No left shift. No fevers for 24 hours . 2. Pain: No Dilauded since late afternoon. Was comfortable on Oxycodon 10 mg Q6 hours, Tylenol and Toradol prn until this am when he had the episode of left chest pain. 3. Activity: Up and walking the Hallways. Looks comfortable walking. pain is minimal at this time 4. Elevated LFT's: continue to trend down 5. Diet: low fat regular diet 6. Disposition: Home once medically stable. patient hoping to go home today. Long discussion with patient regarding his pain and the fact that I want to make sure there isn't something going on with his heart or his Belly. Dr. Bañuelos was kind enough to review the EKG with me. No acute changes. First troponin negative. Will recheck at [address] PE protocol and ABDO\ Pelvis CT with IV contrast just to rule out biloma or abscess as he has grown Gram Neg Rods from his bile, CT chest rule out PE although I doubt he has a PE. I will reassess patient throughout the day. Subjective Interval history since last seen: Nelson was doing well all night. Pain was controlled on Oxycodon 10 mg and toradol. He was sleeping comfortably until about 5 am when he sat up and complained of left chest pain 10/10 and was diaphoretic. EKG was done and was read as no acute findings per Dr. Urbina. Pain subsided and 45 minutes later patient is comfortable and pain has gone down to a 4/10. He looks more comfortable. He is able to take a deep breath. he is passing gas. No BM yet. Has had 2 doses of Miralax. has been afebrile all night. BP has been stable. He was given his BP meds early. Troponin is pending. Exam Const General: cooperative, healthy appearing, comfortable and no acute distress Orientation: alert, awake and oriented x3 Resp Effort & Inspection: normal respiratory effort Auscultation: clear to auscultation bilaterally Cardio Rate: regular rate Rhythm: regular rhythm Heart Sounds: no click, no gallops, no murmurs and no rubs GI Inspection: incision (c/d/i) Palpation: soft and tender (mostly around incisions. Softer then yesterday but still guarding a bit especially in the epigastric area.) Auscultation: normal bowel sounds Objective Objective Clinical Data: Abnormal lab results 06/30/18 06/30/18 07/01/18 Range/Units 06:28 06:28 06:16 RBC 3.90 L 3.87 L (4.50-6.00) m/cumm Hgb 11.4 L 11.2 L (13.5-17.5) g/dL Hct 34.7 L 34.9 L (40.0-50.0) % Absolute Neutrophils 9.10 H 6.92 H (1.2-6.7) k/cumm Absolute Lymphocytes 0.94 L 1.08 L (1.2-3.4) k/cumm Absolute Monocytes 0.79 H (0.11-0.7) k/cumm Glucose 124 H (70-100) mg/dL Calcium 8.3 L (8.5-10.1) mg/dL Total Bilirubin 1.4 H (0.2-1.0) mg/dL ALT 107 H (12-78) U/L Total Protein 6.3 L (6.4-8.2) g/dL Albumin 2.6 L (3.4-5.0) g/dL Vital Signs Temperature 98.6 F 07/01/18 04:49 Temperature Source Tympanic 07/01/18 04:49 Pulse 73 07/01/18 04:49 Pulse Rhythm Regular 06/30/18 20:00 Pulse 72 06/28/18 03:10 Respiratory Rate 18 07/01/18 04:49 Respiratory Effort Non-Labored 06/30/18 20:00 Respiratory Depth Normal 06/30/18 20:00 Respiratory Pattern Normal 06/30/18 20:00 Blood Pressure 107/71 07/01/18 04:49 Blood Pressure Mean 73 06/28/18 03:01 Pulse Oximetry 99 07/01/18 04:49 Respiratory End-tidal CO2 25 06/28/18 17:05 Oxygen Delivery Method Nasal Cannula 07/01/18 04:49 Oxygen Flow Rate 2 07/01/18 04:49 Fraction of Inspired Oxygen (FIO2) 2 06/28/18 20:40 Pain Level 6 07/01/18 03:27 Comment 06/29/18 04:05 Intake & Output 06/30/18 06/30/18 07/01/18 11:59 23:59 11:59 Intake Total 1112.0 / 1112.0 434.5 / 434.5 400 / 400 Balance 1112.0 / 1112.0 434.5 / 434.5 400 / 400 Intake: IV 1112.0 / 1112.0 194.5 / 194.5 Oral 240 / 240 400 / 400 Other: Urine Color Yellow Yellow Urine Appearance Clear Clear Urine Odor None None Comment Void x1 in the toilet. Pt voiding in toilet Voiding Methods Toilet Toilet Laboratory Results WBC 9.05 k/cumm (4.4-10.8) 07/01/18 06:16 RBC 3.87 m/cumm (4.50-6.00) L 07/01/18 06:16 Hgb 11.2 g/dL (13.5-17.5) L 07/01/18 06:16 Hct 34.9 % (40.0-50.0) L 07/01/18 06:16 MCV 90.2 fL (80-95) 07/01/18 06:16 MCH 28.9 pg (27.0-33.0) 07/01/18 06:16 MCHC 32.1 g/dL (32.0-36.0) 07/01/18 06:16 RDW 12.2 % (11.8-14.1) 07/01/18 06:16 Plt Count 205 x1000/uL (130-400) 07/01/18 06:16 MPV 10.6 fL (8.0-11.0) 07/01/18 06:16 Immature Gran % 0.2 07/01/18 06:16 Neutrophils % 76.6 07/01/18 06:16 Lymphocytes % 11.9 07/01/18 06:16 Monocytes % 8.7 07/01/18 06:16 Eosinophils % 2.5 07/01/18 06:16 Basophils % 0.1 07/01/18 06:16 Absolute Neutrophils 6.92 k/cumm (1.2-6.7) H 07/01/18 06:16 Absolute Lymphocytes 1.08 k/cumm (1.2-3.4) L 07/01/18 06:16 Absolute Monocytes 0.79 k/cumm (0.11-0.7) H 07/01/18 06:16 Absolute Eosinophils 0.23 k/cumm (0.0-0.7) 07/01/18 06:16 Absolute Basophils 0.01 k/cumm (0.0-0.2) 07/01/18 06:16 Sodium 136 mmol/L (136-145) 06/30/18 06:28 Potassium 3.6 mmol/L (3.5-5.1) 06/30/18 06:28 Chloride 99 mmol/L (98-107) 06/30/18 06:28 Carbon Dioxide 29.2 mmol/L (21.0-32.0) 06/30/18 06:28 Anion Gap 7.8 mmol/L (3-11) 06/30/18 06:28 BUN 15 mg/dL (7-18) 06/30/18 06:28 Creatinine 1.27 mg/dL (0.70-1.30) 06/30/18 06:28 Estimated GFR/1.73 m2 >= 60.00 (mL/min/1.73m2) 06/30/18 06:28 Glucose 124 mg/dL (70-100) H 06/30/18 06:28 Lactate 1.2 mmol/L (0.6-1.4) 06/28/18 00:24 Calcium 8.3 mg/dL (8.5-10.1) L 06/30/18 06:28 Magnesium 2.0 mg/dL (1.8-2.4) 06/28/18 00:24 Total Bilirubin 1.4 mg/dL (0.2-1.0) H 11/24/18 06:28 AST 37 U/L (15-37) 06/30/18 06:28 ALT 107 U/L (12-78) H 06/30/18 06:28 Alkaline Phosphatase 64 U/L (46-116) 06/30/18 06:28 Troponin I < 0.02 ng/mL (0.00-0.06) 06/28/18 00:24 Total Protein 6.3 g/dL (6.4-8.2) L 06/30/18 06:28 Albumin 2.6 g/dL (3.4-5.0) L 06/30/18 06:28 Lipase 92 U/L (73-393) 06/28/18 09:15
[2018-07-01 07:28] LABS: Troponin I 0.02 ng/mL (0.00-0.06)
--- NOTE | 2018-07-01 08:04 | DI.CT_ITS ---
SYMPTOM/DIAGNOSIS: CHEST PAIN AND HYPOXIA, CONTINUED ABD PAIN CHEST CT FOR PULMONARY EMBOLISM: CT angiography was performed with multi slice acquisition and multi planar and 3D reconstruction. There is suboptimal vascular opacification. The exam is also somewhat limited due to mild respiratory motion. No pulmonary emboli are visible. There are dependent end-expiratory changes of the lungs. No infiltrates or effusions seen. The heart appears enlarged. The aorta is normal in diameter. IMPRESSION: Limited exam. No evidence of pulmonary emboli or other acute abnormality. CT ABDOMEN AND PELVIS: The liver shows marked fatty infiltration and is mildly enlarged. There is a small amount of fluid in the gallbladder fossa, likely post surgical. There is a small amount of air and fluid around the liver, greatest inferiorly. This is likely postoperative. Fluid is also seen in the pericolic gutters and pelvis. The appendix appears normal. Diverticula are noted in the colon. There is no evidence of diverticulitis or bowel obstruction. The kidneys, spleen, pancreas and adrenals are unremarkable. IMPRESSION: Small amount of fluid in the gallbladder fossa and around the liver which may represent post surgical changes. A small infrahepatic abscess cannot be entirely excluded.
[2018-07-01] MEDS: Spironolactone 25 MG TAB PO (08:12)
[2018-07-01] MEDS: Torsemide 20 MG TAB PO (08:12)
[2018-07-01] MEDS: Polyethylene Glycol 3350 17 GM PACKET PO (08:12)
[2018-07-01] MEDS: Aspirin E.C. 81 MG TABEC PO (08:46)
[2018-07-01] MEDS: Normal Saline Flush 10 ML SYR IVP ×7 (08:46→21:51)
[2018-07-01] MEDS: Omnipaque 350 MG/ML 100 ML BTL IJ (10:17)
[2018-07-01 10:30] LABS: Troponin I 0.03 ng/mL (0.00-0.06)
--- NOTE | 2018-07-01 11:04 | DI.VRAD_ITS ---
EXAM: CT Angiography Chest With Intravenous Contrast EXAM DATE/TIME: 07/01/2018 8:04 AM CLINICAL HISTORY: 47 years old, male; Pain; Chest pain; Abdominal pain; Generalized TECHNIQUE: Axial computed tomographic angiography images of the chest with intravenous contrast using CT angiography protocol. Coronal and sagittal reformatted images were created and reviewed. MIP reconstructed images were created and reviewed. COMPARISON: CR ABD FLAT UPRIGHT PA CHEST 08/11/2015 7:21 AM FINDINGS: Pulmonary arteries: Limited for embolus although no visualized embolus to the proximal segmental level. Aorta: Calcification of the aorta. Great vessels off aortic arch: No dissection Thyroid: Prominence of the thyroid gland. Correlate. Lungs: Mild dependent atelectasis is present. Lungs are otherwise well aerated. Pleural space: Normal. No pneumothorax. No pleural effusion. Heart: Cardiomegaly Lymph nodes: Unremarkable. No enlarged lymph nodes. Bones/joints: The thoracic inlet is unremarkable. Soft tissues: Unremarkable. IMPRESSION: 1. Prominence of the thyroid gland. Correlate. 2. Mild dependent atelectasis is present. Lungs are otherwise well aerated. EXAM: CT Angiography Abdomen With Intravenous Contrast EXAM DATE/TIME: 07/01/2018 8:04 AM CLINICAL HISTORY: 47 years old, male; Pain; Chest pain; Abdominal pain; Generalized TECHNIQUE: Axial computed tomographic angiography images of the abdomen with intravenous contrast material, including non-contrast images if performed. MIP and/or 3D reconstructed images were created and reviewed. Coronal and sagittal reformatted images were created and reviewed. MIP reconstructed images were created and reviewed. COMPARISON: CR ABD FLAT UPRIGHT PA CHEST 08/11/2015 7:21 AM FINDINGS: Lungs: Unremarkable. No consolidation. VASCULATURE: Aorta: No aortic aneurysm. No aortic dissection. Celiac Trunk and Mesenteric Arteries: No occlusion or significant stenosis. Renal Arteries: No occlusion or significant stenosis. ABDOMEN: Liver: Mild hepatomegaly. Fatty infiltration. Mildly nodular liver. Correlate regarding risk factors for hepatocellular disease. Prominent spleen. Gallbladder and bile ducts: Mild stranding in the fat about the darshan hepatis with a small amount of fluid in the gallbladder fossa likely postoperative. Please correlate regarding recent surgery. No history of surgery was provided. Pancreas: Normal. No ductal dilation. Spleen: See Liver Finding. Adrenals: Normal. No mass. Kidneys and ureters: Normal. No hydronephrosis. Stomach and bowel: Diverticulosis without evidence of diverticulitis. Appendix: -The appendix is normal. Intraperitoneal space: Small amount of fluid in the subhepatic space with a small amount of air. This measures approximately 3 cm transversely, 3 cm in the anterior posterior dimension and extends craniocaudally by approximately 3 cm. Possible early abscess. Correlate clinically and followup if indicated. Moderate amount of fluid in the pelvis. Nonorganized. Possibly post operative-is there a history of surgery?. Please correlate. Bones/joints: See Liver Finding. Soft tissues: See Intraperitoneal Space Finding. Lymph nodes: Unremarkable. No enlarged lymph nodes. IMPRESSION: 1. Mild hepatomegaly. Fatty infiltration. Mildly nodular liver. Correlate regarding risk factors for hepatocellular disease. Prominent spleen. 2. Mild stranding in the fat about the darshan hepatis with a small amount of fluid in the gallbladder fossa likely postoperative. Please correlate regarding recent surgery. No history of surgery was provided. 3. Small amount of fluid in the subhepatic space with a small amount of air. This measures approximately 3 cm transversely, 3 cm in the anterior posterior dimension and extends craniocaudally by approximately 3 cm. Possible early abscess. Correlate clinically and followup if indicated. 4. Moderate amount of fluid in the pelvis. Nonorganized. Possibly post operative-is there a history of surgery?. Please correlate. 5. Diverticulosis without evidence of diverticulitis. 6. -The appendix is normal. Dictated and Authenticated by: Anjum Hopkins MD. Ordering:REYNA BIRD MD
--- NOTE | 2018-07-01 11:24 | W.PM.PROGNOT ---
Date of Service Date of service: 07/01/18 Time of Service: 11:24 Assessment and Plan (1) Chest pain: Current visit: Yes Status: Acute A\\ Chest pain this am which woke him up. EKG unremarkable. Troponins x [address] so [address] chest- No PE, mild atelectasis P\\ Check one more troponin at 16:00 Continue monitoring for pain telemetry over night (2) S/P laparoscopic cholecystectomy: Current visit: Yes Status: Acute A\\ ABdominal pain with slight improvement every day Labs all trending down Afebrile CT scan- fluid collection perihepatic- 3x3 cm, ? early abscess. P\\ Continue with IV antibiotics in case this is an early abscess. Monitor WBC count and Platelets Subjective Interval history since last seen: Nelson is feeling better. Has been walking. Pain is getting better. Passing flatus, no BM Exam Resp Effort & Inspection: normal respiratory effort Auscultation: clear to auscultation bilaterally Cardio Rate: regular rate Rhythm: regular rhythm Heart Sounds: no click, no gallops, no murmurs and no rubs GI Inspection: normal to inspection Palpation: soft and tender in the RUQ (voluntary gurading although less then yesterday and this am) Objective Objective Clinical Data: Abnormal lab results 07/01/18 07/01/18 Range/Units 06:16 06:16 RBC 3.87 L (4.50-6.00) m/cumm Hgb 11.2 L (13.5-17.5) g/dL Hct 34.9 L (40.0-50.0) % Absolute Neutrophils 6.92 H (1.2-6.7) k/cumm Absolute Lymphocytes 1.08 L (1.2-3.4) k/cumm Absolute Monocytes 0.79 H (0.11-0.7) k/cumm Glucose 108 H (70-100) mg/dL Calcium 8.2 L (8.5-10.1) mg/dL Total Bilirubin 1.4 H (0.2-1.0) mg/dL ALT 83 H (12-78) U/L Albumin 2.4 L (3.4-5.0) g/dL Vital Signs Temperature 98.4 F 07/01/18 07:40 Temperature Source Temporal Artery Scan 07/01/18 07:40 Pulse 72 07/01/18 07:40 Pulse Rhythm Regular 06/30/18 20:00 Pulse 72 06/28/18 03:10 Respiratory Rate 17 07/01/18 07:40 Respiratory Effort Non-Labored 06/30/18 20:00 Respiratory Depth Normal 06/30/18 20:00 Respiratory Pattern Normal 06/30/18 20:00 Blood Pressure 106/70 07/01/18 07:40 Blood Pressure Mean 73 06/28/18 03:01 Pulse Oximetry 93 L 07/01/18 07:40 Respiratory End-tidal CO2 06/28/18 17:05 Oxygen Delivery Method Room Air 07/01/18 07:40 Oxygen Flow Rate 0 07/01/18 07:40 Fraction of Inspired Oxygen (FIO2) 2 06/28/18 20:40 Pain Level 4 07/01/18 09:23 Comment 06/29/18 04:05 Intake & Output 06/30/18 06/30/18 07/01/18 11:59 23:59 11:59 Intake Total 1662.0 / 1662.0 434.5 / 434.5 1580 / 1580 Output Total 450 / 450 Balance 1662.0 / 1662.0 434.5 / 434.5 1130 / 1130 Intake: IV 1112.0 / 1112.0 194.5 / 194.5 80 / 80 Oral 550 / 550 240 / 240 1500 / 1500 Output: Urine 450 / 450 Other: Urine Color Yellow Yellow Yellow Urine Appearance Clear Clear Clear Urine Odor None None None Comment Void x1 in the toilet. Pt voiding in toilet Void x1 in the toilet. Voiding Methods Toilet Toilet Toilet Laboratory Results WBC 9.05 k/cumm (4.4-10.8) 07/01/18 06:16 RBC 3.87 m/cumm (4.50-6.00) L 07/01/18 06:16 Hgb 11.2 g/dL (13.5-17.5) L 07/01/18 06:16 Hct 34.9 % (40.0-50.0) L 07/01/18 06:16 MCV 90.2 fL (80-95) 07/01/18 06:16 MCH 28.9 pg (27.0-33.0) 07/01/18 06:16 MCHC 32.1 g/dL (32.0-36.0) 07/01/18 06:16 RDW 12.2 % (11.8-14.1) 07/01/18 06:16 Plt Count 205 x1000/uL (130-400) 07/01/18 06:16 MPV 10.6 fL (8.0-11.0) 07/01/18 06:16 Immature Gran % 0.2 07/01/18 06:16 Neutrophils % 76.6 07/01/18 06:16 Lymphocytes % 11.9 07/01/18 06:16 Monocytes % 8.7 07/01/18 06:16 Eosinophils % 2.5 07/01/18 06:16 Basophils % 0.1 07/01/18 06:16 Absolute Neutrophils 6.92 k/cumm (1.2-6.7) H 07/01/18 06:16 Absolute Lymphocytes 1.08 k/cumm (1.2-3.4) L 07/01/18 06:16 Absolute Monocytes 0.79 k/cumm (0.11-0.7) H 07/01/18 06:16 Absolute Eosinophils 0.23 k/cumm (0.0-0.7) 07/01/18 06:16 Absolute Basophils 0.01 k/cumm (0.0-0.2) 07/01/18 06:16 Sodium 136 mmol/L (136-145) 07/01/18 06:16 Potassium 3.5 mmol/L (3.5-5.1) 07/01/18 06:16 Chloride 98 mmol/L (98-107) 07/01/18 06:16 Carbon Dioxide 30.5 mmol/L (21.0-32.0) 07/01/18 06:16 Anion Gap 7.5 mmol/L (3-11) 07/01/18 06:16 BUN 13 mg/dL (7-18) 07/01/18 06:16 Creatinine 1.24 mg/dL (0.70-1.30) 07/01/18 06:16 Estimated GFR/1.73 m2 >= 60.00 (mL/min/1.73m2) 07/01/18 06:16 Glucose 108 mg/dL (70-100) H 11/25/18 06:16 Lactate 1.2 mmol/L (0.6-1.4) 06/28/18 00:24 Calcium 8.2 mg/dL (8.5-10.1) L 07/01/18 06:16 Magnesium 2.0 mg/dL (1.8-2.4) 06/28/18 00:24 Total Bilirubin 1.4 mg/dL (0.2-1.0) H 07/01/18 06:16 AST 27 U/L (15-37) 07/01/18 06:16 ALT 83 U/L (12-78) H 07/01/18 06:16 Alkaline Phosphatase 79 U/L (46-116) 07/01/18 06:16 Troponin I 0.03 ng/mL (0.00-0.06) 07/01/18 09:58 Total Protein 6.6 g/dL (6.4-8.2) 07/01/18 06:16 Albumin 2.4 g/dL (3.4-5.0) L 07/01/18 06:16 Lipase 92 U/L (73-393) 06/28/18 09:15
[2018-07-01] MEDS: Pantoprazole 40 MG VIAL IVP (13:08)
--- NOTE | 2018-07-01 13:25 | NUR.NOTE ---
Nursing Note: Pt. rang leandro echevarria at 1224 on 07/01/18 and notified the RN that he was having chest pain. RN asked pt. to specify his pain location; pain was determined to be in the left upper quadrant of the abdomen and radiating in to the left shoulder. Pt. stated his pain was 9.5/10 and was a sharp, tight, pulling pain. Pt. stated that the pain came on suddenly after having a few bites of vanilla ice cream and a bite of a cookie. Pt. denied nausea/vomiting. VS obtained; VSS. No telemetry changes noted; telemetry showing NSR in the upper 80's. Pt. instructed to take slow deep breaths. Pt. stated that the pain had started to dissipate almost as quickly as the pain had started, without any intervention. Charge nurse notified. Deloris Schilling MD notified. Per , pt. to receive protonix 40 mg IVP now and once daily and a GI cocktail (lidocaine/mylanta) PO now. Tony Bañuelos MD to be notified as well. Deloris Schilling MD to be notified of any other changes. RN will reassess as necessary.
--- NOTE | 2018-07-01 14:23 | PDOC.CMPRO ---
- If Service Date Differs Date of service: 07/01/18 Time of Service: 14:23 Care Management Progress Note S/O: Vitor (Óscar) developed some chest discomfort over night, he will not be ready to discharge home today. He continues to be acute status. He is walking in the halls and appears to be in good spirts. Anticipate he will be discharged in the next 24 hours, per . He continues to receive IV antibiotics, and oral pain management. A: 47 y/o male admitted 06/28/18 with cholelithiasis he is now status post lap chole108/28/17. P: Pt to return home with no anticipated services once medically cleared. He will F/U with Dr. Schilling and plan of care as prescribed. Family to transport.
[2018-07-01] MEDS: Normal Saline 500 ML 30 ML IV (16:10)
[2018-07-01 16:42] LABS: Troponin I 0.02 ng/mL (0.00-0.06)
[2018-07-01] MEDS: Bisacodyl 10 MG SUPP PR (17:06)
[2018-07-01] MEDS: HYDROmorphone 2 MG/ML VIAL IVP ×2 (18:23→21:51)
[2018-07-01] MEDS: Ketorolac 30 MG/ML VIAL IVP (19:16)
[2018-07-02] MEDS: Normal Saline Flush 10 ML SYR IVP ×4 (00:56→10:10)
[2018-07-02] MEDS: HYDROmorphone 2 MG/ML VIAL IVP (01:00)
[2018-07-02] MEDS: PIPERACILLIN/TAZO 3.375 GM in Normal Saline 50 ML IVPB ×2 (04:29→10:10)
[2018-07-02 04:30] VITALS: BP 104/67; PULSE 66; RESP 20; TEMP 36.7; O2SAT 94
[2018-07-02] MEDS: oxyCODONE 5 MG TAB PO ×2 (04:41→10:51)
[2018-07-02 07:00] VITALS: PULSE 83
[2018-07-02 07:24] LABS: Abs Immature Grans 0.02 k/cumm (0.0-0.09); Absolute Basophil Count 0.03 k/cumm (0.0-0.2); Absolute Eosinophil Count 0.26 k/cumm (0.0-0.7); Absolute Monocyte Count 0.83 k/cumm (0.11-0.7); Absolute Neutrophil Count 5.76 k/cumm (1.2-6.7); Basophils % 0.4; Eosinophils % 3.3; HCT 33.6 % (40.0-50.0); HGB 10.8 g/dL (13.5-17.5); Immature Grans % 0.3; Lymphocytes % 13.8; Mean Corp. HGB Concentration 32.1 g/dL (32.0-36.0); Mean Corpuscular Hemoglobin 28.7 pg (27.0-33.0); Mean Corpuscular Volume 89.4 fL (80-95); Monocytes % 10.4; Neutrophils % 71.8; Platelet Count 238 x1000/uL (130-400); RBC 3.76 m/cumm (4.50-6.00); RBC Distribution Width 12.2 % (11.8-14.1)
[2018-07-02 07:50] LABS: ALT 62 U/L (12-78); AST 18 U/L (15-37); Albumin 2.3 g/dL (3.4-5.0); Alkaline Phosphatase 86 U/L (46-116); Anion Gap 4.8 mmol/L (3-11); BUN 14 mg/dL (7-18); CO2 31.2 mmol/L (21.0-32.0); CREATININE 1.08 mg/dL (0.70-1.30); Calcium 8.3 mg/dL (8.5-10.1); Chloride 100 mmol/L (98-107); Glucose 104 mg/dL (70-100); Magnesium 2.1 mg/dL (1.8-2.4); Potassium 3.8 mmol/L (3.5-5.1); Sodium 136 mmol/L (136-145); Total Protein 6.5 g/dL (6.4-8.2)
[2018-07-02 07:59] VITALS: BP 133/83; PULSE 79; RESP 18; TEMP 36; O2SAT 97
--- NOTE | 2018-07-02 08:06 | W.PM.PROGNOT ---
Date of Service Date of service: 07/02/18 Time of Service: 08:07 Assessment and Plan (1) S/P laparoscopic cholecystectomy: Current visit: Yes Status: Acute A// Mild Abdominal discomfort this morning. WBC count continues to trend down. (+) BM last night. Afebrile, no nausea or vomiting since last night. P// Will trial breakfast, to see if nausea, ULQ pain returns. Encouraged ambulation and activities out of bed this morning. Awaiting in house radiologist to review CT scan re: ? enrico-hepatic abscess. D/C home later today, if he is able to tolerate breakfast. Will be d/c on antibiotics for an additional 5 days PO Septra. (2) Chest pain: Current visit: Yes Status: Acute Negative Troponins x 3. Symptoms have since resolved. Will continue to monitor. Subjective Interval history since last seen: Patient reports he is feeling better this morning and expresses that he is eager to be d/c home. (+) BM last night with use of suppository. He has continued epigastric/LUQ discomfort that he rates as a 4/10PL. He has been tolerating liquids. Last evening he had some vanilla ice cream and a bite of a chocolate chip cookie, shortly after which had some LUQ discomfort associated with nausea. This resolved after a few minutes. He reports that he is hungry now and will trial breakfast. Exam Const General: cooperative, healthy appearing and no acute distress Orientation: alert and oriented x3 Resp Effort & Inspection: normal respiratory effort Auscultation: clear to auscultation bilaterally Cardio Jugular venous pressure: no JVD Rate: regular rate Rhythm: regular rhythm Heart Sounds: S1 normal, S2 normal and no murmurs GI Inspection: normal to inspection and incision (4 port site incisions, covered with skin-a-fix glue) Palpation: soft and tender in the RLQ and in the LUQ Auscultation: normal bowel sounds Objective Objective Clinical Data: Abnormal lab results 07/02/18 07/02/18 Range/Units 06:58 06:58 RBC 3.76 L (4.50-6.00) m/cumm Hgb 10.8 L (13.5-17.5) g/dL Hct 33.6 L (40.0-50.0) % Absolute Lymphocytes 1.10 L (1.2-3.4) k/cumm Absolute Monocytes 0.83 H (0.11-0.7) k/cumm Glucose 104 H (70-100) mg/dL Calcium 8.3 L (8.5-10.1) mg/dL Albumin 2.3 L (3.4-5.0) g/dL Vital Signs Temperature 36 C L 07/02/18 07:59 Temperature Source Temporal Artery Scan 07/02/18 07:59 Pulse 79 07/02/18 07:59 Pulse Rhythm Regular 07/02/18 03:22 Pulse 72 06/28/18 03:10 Respiratory Rate 18 07/02/18 07:59 Respiratory Effort 07/02/18 03:22 Respiratory Depth Normal 07/02/18 03:22 Respiratory Pattern Normal 07/02/18 03:22 Blood Pressure 133/83 07/02/18 07:59 Blood Pressure Mean 73 06/28/18 03:01 Pulse Oximetry 97 07/02/18 07:59 Respiratory End-tidal CO2 25 06/28/18 17:05 Oxygen Delivery Method Room Air 07/02/18 07:59 Oxygen Flow Rate 0 07/02/18 07:59 Fraction of Inspired Oxygen (FIO2) 2 06/28/18 20:40 Pain Level 4 07/02/18 07:59 Comment 07/01/18 13:14 Intake & Output 07/01/18 07/01/18 07/02/18 11:59 23:59 11:59 Intake Total 1874.5 / 1874.5 984.338 / 984.338 500 / 500 Output Total 850 / 850 900 / 900 300 / 300 Balance 1024.5 / 1024.5 84.338 / 84.338 200 / 200 Intake: IV 134.5 / 134.5 194.338 / 194.338 50 / 50 Oral 1740 / 1740 790 / 790 450 / 450 Output: Urine 850 / 850 900 / 900 300 / 300 Other: Urine Color Yellow Straw Dark Rosario Urine Appearance Clear Clear Urine Odor None None Strong Comment Void x1 in the toilet. Void x1 in the toilet. urine very concentrated Stool Size Large Stool Characteristics Formed Hard Brown Voiding Methods Toilet Toilet Toilet Laboratory Results WBC 8.00 k/cumm (4.4-10.8) 07/02/18 06:58 RBC 3.76 m/cumm (4.50-6.00) L 07/02/18 06:58 Hgb 10.8 g/dL (13.5-17.5) L 07/02/18 06:58 Hct 33.6 % (40.0-50.0) L 07/02/18 06:58 MCV 89.4 fL (80-95) 07/02/18 06:58 MCH 28.7 pg (27.0-33.0) 07/02/18 06:58 MCHC 32.1 g/dL (32.0-36.0) 07/02/18 06:58 RDW 12.2 % (11.8-14.1) 07/02/18 06:58 Plt Count 238 x1000/uL (130-400) 07/02/18 06:58 MPV 10.0 fL (8.0-11.0) 07/02/18 06:58 Immature Gran % 0.3 07/02/18 06:58 Neutrophils % 71.8 07/02/18 06:58 Lymphocytes % 13.8 07/02/18 06:58 Monocytes % 10.4 07/02/18 06:58 Eosinophils % 3.3 07/02/18 06:58 Basophils % 0.4 07/02/18 06:58 Absolute Neutrophils 5.76 k/cumm (1.2-6.7) 07/02/18 06:58 Absolute Lymphocytes 1.10 k/cumm (1.2-3.4) L 07/02/18 06:58 Absolute Monocytes 0.83 k/cumm (0.11-0.7) H 07/02/18 06:58 Absolute Eosinophils 0.26 k/cumm (0.0-0.7) 07/02/18 06:58 Absolute Basophils 0.03 k/cumm (0.0-0.2) 07/02/18 06:58 Sodium 136 mmol/L (136-145) 07/02/18 06:58 Potassium 3.8 mmol/L (3.5-5.1) 07/02/18 06:58 Chloride 100 mmol/L (98-107) 07/02/18 06:58 Carbon Dioxide 31.2 mmol/L (21.0-32.0) 07/02/18 06:58 Anion Gap 4.8 mmol/L (3-11) 07/02/18 06:58 BUN 14 mg/dL (7-18) 07/02/18 06:58 Creatinine 1.08 mg/dL (0.70-1.30) 07/02/18 06:58 Estimated GFR/1.73 m2 >= 60.00 (mL/min/1.73m2) 07/02/18 06:58 Glucose 104 mg/dL (70-100) H 07/02/18 06:58 Lactate 1.2 mmol/L (0.6-1.4) 06/28/18 00:24 Calcium 8.3 mg/dL (8.5-10.1) L 07/02/18 06:58 Magnesium 2.1 mg/dL (1.8-2.4) 07/02/18 06:58 Total Bilirubin 1.0 mg/dL (0.2-1.0) 07/02/18 06:58 AST 18 U/L (15-37) 07/02/18 06:58 ALT 62 U/L (12-78) 07/02/18 06:58 Alkaline Phosphatase 86 U/L (46-116) 07/02/18 06:58 Troponin I 0.02 ng/mL (0.00-0.06) 07/01/18 16:08 Total Protein 6.5 g/dL (6.4-8.2) 07/02/18 06:58 Albumin 2.3 g/dL (3.4-5.0) L 07/02/18 06:58 Lipase 92 U/L (73-393) 06/28/18 09:15
[2018-07-02] MEDS: Polyethylene Glycol 3350 17 GM PACKET PO (08:09)
[2018-07-02] MEDS: Pantoprazole 40 MG VIAL IVP (08:09)
[2018-07-02] MEDS: Torsemide 20 MG TAB PO (08:09)
[2018-07-02] MEDS: Losartan 50 MG TAB PO (08:09)
[2018-07-02] MEDS: Acetaminophen 325 MG TAB 650 MG PO (08:10)
[2018-07-02] MEDS: Metoprolol CR 25 MG TABCR PO (08:10)
[2018-07-02] MEDS: Aspirin E.C. 81 MG TABEC PO (08:10)
[2018-07-02] MEDS: Spironolactone 25 MG TAB PO (08:10)
[2018-07-02] MEDS: Ketorolac 30 MG/ML VIAL IVP (10:51)
[2018-07-02 11:34] VITALS: BP 108/72; PULSE 75; RESP 18; TEMP 37.3; O2SAT 94
--- NOTE | 2018-07-02 14:36 | PDOC.CMDIS ---
- If Service Date Differs Date of service: 07/02/18 Time of Service: 14:36 LACE Index Scoring Tool - Questions: Length of Stay (in days): 4 - 6 Acuity (Admit via E.D.?): Yes E.D. Visits: 4 - Answers: Total Score: 11 Risk of Readmission: High Risk Care Management Discharge Reason for Hospitalization: Cholelithiasis, Pneumobilia Discharge Plan: Vitor will return home with no services. He will F/U with Dr. Schilling and plan of care as prescribed. Vitor's family to transport when ready. Patient/Family Education Needs: Review DC instructions, any limitations, and discuss 'Ask Me Three'
--- NOTE | 2018-07-02 14:55 | W.PM.DS.N ---
Date of service: 07/02/18 Time of Service: 14:56 DS: Diagnosis Discharge Diagnosis (1) S/P laparoscopic cholecystectomy: Status: Acute (2) Chest pain: Status: Acute Discharge Plan Disposition Patient Disposition: HOME Condition: Fair Discharge Details Reason For Visit: acute on Chronic Cholecystitis with Cholelithiasis Admit Date/Time: 06/28/18 02:26 Admit Provider: Deloris Schilling Attending Provider: Deloris Schilling Primary Care Provider: Obed Castro Hospital Course Hospital Course: Mr. Martinez is a pleasant 47 year old male who was admitted on 06/28/18 for Cholelithasis and pneumobilia. On 06/29/18 he was still very tender and he had had fevers of above 38.5. He was taken to surgery for Lap. [place]. His Gallbladder was noted to be very edematous and there was patchy necrosis. There was some spill of bile from the Gallbladder. POD#1 he was started on clear liquids. He was still very tender and his WBC count was above 13. His Billirubin was increased at 1.6. LFT's were also slightly increased. He required Dilauded for pain. His diet was advanced on POD#2 to soft, low fat. He was still painfull and had had a fever through the night so he was continued on IV antibiotics. By the afternoon he was walking and feeling better. POD#3 he woke up with Left chest pain. Cardiac workup with EKG and troponins were done and were normal. He was started on some protonix and given a GI concktail which helped. A CT scan of his Chest, abdo and pelvis was done. Chest CT was unremarkable aside from some atelectasis. CT abdo/ pelvis showed fluid in the galbbladder fossa, some along the liver and some in the pelvis. Most likely consistent with post-surgery but a small abscess could not be ruled out per the radiologist along the liver. His cultures came back positive for Gram neg Rods x3. bacteria was sensitive to Zosyn and Bactrim. He continued to do well that afternoon. He was given a suppository and had a BM which helped the pressure feeling in his abdomen as well as his pain. The next day Monday he was feeling well. His WBC count and PLT's continued to be normal. His LFT's were normal. he was eating without pain. he was passing flatus and had a BM. He was discharged home with f/u in the office in 48 hours. Home Meds and New Rx's Prescriptions: New acetaminophen [Tylenol] 325 mg Tablet 650 mg PO Q6H PRN PRN (Reason: fever or pain) Qty: 30 RF: 0 oxycodone 5 mg Tablet 5 - 10 mg PO Q6H PRN PRN (Reason: pain) Qty: 20 RF: 0 polyethylene glycol 3350 17 gram Powder In Packet 17 g PO DAILY PRN (Reason: constipation) Qty: 14 RF: 0 ibuprofen 600 mg tablet 600 mg PO QID PRN (Reason: fever or pain) Qty: 30 RF: 0 sulfamethoxazole-trimethoprim [Bactrim DS] 800-160 mg tablet 1 tab PO BID Qty: 10 RF: 0 omeprazole 40 mg capsule,delayed release(DR/EC) 40 mg PO DAILY Qty: 30 RF: 0 Continue aspirin [Aspir-81] 81 MG tablet,delayed release (DR/EC) 81 mg PO QAM RF: 0 losartan 50 mg Tablet 50 mg PO DAILY RF: 0 torsemide 20 mg Tablet 20 mg PO DAILY RF: 0 spironolactone 25 mg Tablet 25 mg PO DAILY RF: 0 metoprolol succinate 25 mg Tablet Extended Release 24 Hr 25 mg PO DAILY RF: 0 Discharge Instructions Instructions: Laparoscopic Cholecystectomy (DC) Additional Instructions: General Surgery Discharge Information Discharge Activities: 1. Continue incentive spirometry 10-15 times~every hour while awake and as tolerated 2. Ambulate at least 3 times a day for 15 minutes and as tolerated 3. Out of bed at least 3 times a day for 2 hours at a time, and as tolerated 4. You can shower, pat wounds dry, do not rub Restrictions: 1. No heavy lifting over 20 pounds for 2 weeks, no strenuous bending or twisting. 2. No swimming, baths, or immersion of wounds in water for 2 weeks. Therapies: None Follow-up appointments: Dr. Diaz on 07/04/18 at 09:30 for a quick check up. Dr. Schilling in 1 week. Their office is located in the upper level of the [employer] [facility] [address] the [facility]. The office number is [phone]. For any questions or to make, confirm appointments. If you are having fever, chills, nausea, vomiting, pain not controlled with pain medications, bleeding or drainage from your wounds. Call [phone] or [phone] (after hours). I understand the above instructions and have no questions. Signature of Patient or Responsible Adult Escort Date/Time Name of Responsible Adult Escort Signature of Nurse Date/Time Referrals: Kishor Diaz DO [ [facility] STAFF PHYSICIAN] - 07/04/18 9:30 am Activity:: No lifting, pulling or pushing >20 lb x 2 weeks Equipment/Supplies:: No Equipment Needed Diet:: low fat diet Discharge Orders Discharge Orders: Discharge Order (Routine); Ordered 07/02/18 Ordered By: Deloris Schilling Exam Resp Effort & Inspection: normal respiratory effort Auscultation: clear to auscultation bilaterally Cardio Rate: regular rate Rhythm: regular rhythm Heart Sounds: no gallops, no murmurs and no rubs GI Inspection: incision (c/d/i) Palpation: soft and tender (mild tenderness, no rebound and no gaurding) in the epigastrum and in the RLQ Auscultation: normal bowel sounds DS: Data Vitals/I&O Vitals and I&O: Vital Signs Temperature 99.1 F 07/02/18 11:34 Temperature Source Tympanic 07/02/18 11:34 Pulse 75 07/02/18 11:34 Pulse Rhythm Regular 07/02/18 09:23 Pulse 72 06/28/18 03:10 Respiratory Rate 18 07/02/18 11:34 Respiratory Effort 07/02/18 09:23 Respiratory Depth Normal 07/02/18 09:23 Respiratory Pattern Normal 07/02/18 09:23 Blood Pressure 108/72 07/02/18 11:34 Blood Pressure Mean 73 06/28/18 03:01 Pulse Oximetry 94 L 07/02/18 11:34 Respiratory End-tidal CO2 06/28/18 17:05 Oxygen Delivery Method Room Air 07/02/18 11:34 Oxygen Flow Rate 0 07/02/18 11:34 Fraction of Inspired Oxygen (FIO2) 2 06/28/18 20:40 Pain Level 4 07/02/18 11:34 Comment 07/01/18 13:14 Intake & Output 07/01/18 07/02/18 07/02/18 23:59 11:59 23:59 Intake Total 984.338 / 984.338 750 / 750 250 / 250 Output Total 900 / 900 900 / 900 Balance 84.338 / 84.338 -150 / -150 250 / 250 Intake: IV 194.338 / 194.338 50 / 50 Oral 790 / 790 700 / 700 250 / 250 Output: Urine 900 / 900 900 / 900 Other: Urine Color Straw Light Rosario Urine Appearance Clear Urine Odor None Strong Comment Void x1 in the toilet. urine very concentrated Stool Size Large Stool Characteristics Formed Hard Brown Voiding Methods Toilet Urinal Labs on day of discharge: Labs from last 24 hours 07/02/18 07/02/18 07/01/18 06:58 06:58 16:08 WBC 8.00 RBC 3.76 L Hgb 10.8 L Hct 33.6 L MCV 89.4 MCH 28.7 MCHC 32.1 RDW 12.2 Plt Count 238 MPV 10.0 Immature Gran % 0.3 Neutrophils % 71.8 Lymphocytes % 13.8 Monocytes % 10.4 Eosinophils % 3.3 Basophils % 0.4 Absolute Neutrophils 5.76 Absolute Lymphocytes 1.10 L Absolute Monocytes 0.83 H Absolute Eosinophils 0.26 Absolute Basophils 0.03 Sodium 136 Potassium 3.8 Chloride 100 Carbon Dioxide 31.2 Anion Gap 4.8 BUN 14 Creatinine 1.08 Estimated GFR/1.73 m2 >= 60.00 Glucose 104 H Calcium 8.3 L Magnesium 2.1 Total Bilirubin 1.0 AST 18 ALT 62 Alkaline Phosphatase 86 Troponin I 0.02 Total Protein 6.5 Albumin 2.3 L Preliminary micro results at discharge 06/28/18 10:25 Blood Culture - Preliminary Blood NO GROWTH 96 HOURS 06/28/18 10:15 Blood Culture - Preliminary Blood NO GROWTH 96 HOURS 06/28/18 14:16 Surgical Culture - Preliminary Gallbladder - Bile Escherichia coli Escherichia coli#2 Klebsiella pneumoniae PFSH Family History Father Pancreatic cancer Medical History Cholelithiasis with acute on chronic cholecystitis (Chronic) Fatty liver (Acute) Kidney stones (Chronic) Cardiomyopathy (Chronic) HTN (hypertension) (Chronic) Social History housing: house current occupational status: employed 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
--- NOTE | 2018-07-02 15:10 | DSE_ITS ---
Date of service: 07/02/18 Time of Service: 14:56 DS: Diagnosis Discharge Diagnosis (1) S/P laparoscopic cholecystectomy: Status: Acute (2) Chest pain: Status: Acute Discharge Plan Disposition Patient Disposition: HOME Condition: Fair Discharge Details Reason For Visit: acute on Chronic Cholecystitis with Cholelithiasis Admit Date/Time: 06/28/18 02:26 Admit Provider: Deloris Schilling Attending Provider: Deloris Schilling Primary Care Provider: Obed Castro Hospital Course Hospital Course: Mr. Martinez is a pleasant 47 year old male who was admitted on 06/28/18 for Cholelithasis and pneumobilia. On 06/29/18 he was still very tender and he had had fevers of above 38.5. He was taken to surgery for Lap. [place]. His Gallbladder was noted to be very edematous and there was patchy necrosis. There was some spill of bile from the Gallbladder. POD#1 he was started on clear liquids. He was still very tender and his WBC count was above 13. His Billirubin was increased at 1.6. LFT's were also slightly increased. He required Dilauded for pain. His diet was advanced on POD#2 to soft, low fat. He was still painfull and had had a fever through the night so he was continued on IV antibiotics. By the afternoon he was walking and feeling better. POD#3 he woke up with Left chest pain. Cardiac workup with EKG and troponins were done and were normal. He was started on some protonix and given a GI concktail which helped. A CT scan of his Chest, abdo and pelvis was done. Chest CT was unremarkable aside from some atelectasis. CT abdo/ pelvis showed fluid in the galbbladder fossa, some along the liver and some in the pelvis. Most likely consistent with post-surgery but a small abscess could not be ruled out per the radiologist along the liver. His cultures came back positive for Gram neg Rods x3. bacteria was sensitive to Zosyn and Bactrim. He continued to do well that afternoon. He was given a suppository and had a BM which helped the pressure feeling in his abdomen as well as his pain. The next day Monday he was feeling well. His WBC count and PLT's continued to be normal. His LFT's were normal. he was eating without pain. he was passing flatus and had a BM. He was discharged home with f/u in the office in 48 hours. Home Meds and New Rx's Prescriptions: New acetaminophen [Tylenol] 325 mg Tablet 650 mg PO Q6H PRN PRN (Reason: fever or pain) Qty: 30 RF: 0 oxycodone 5 mg Tablet 5 - 10 mg PO Q6H PRN PRN (Reason: pain) Qty: 20 RF: 0 polyethylene glycol 3350 17 gram Powder In Packet 17 g PO DAILY PRN (Reason: constipation) Qty: 14 RF: 0 ibuprofen 600 mg tablet 600 mg PO QID PRN (Reason: fever or pain) Qty: 30 RF: 0 sulfamethoxazole-trimethoprim [Bactrim DS] 800-160 mg tablet 1 tab PO BID Qty: 10 RF: 0 omeprazole 40 mg capsule,delayed release(DR/EC) 40 mg PO DAILY Qty: 30 RF: 0 Continue aspirin [Aspir-81] 81 MG tablet,delayed release (DR/EC) 81 mg PO QAM RF: 0 losartan 50 mg Tablet 50 mg PO DAILY RF: 0 torsemide 20 mg Tablet 20 mg PO DAILY RF: 0 spironolactone 25 mg Tablet 25 mg PO DAILY RF: 0 metoprolol succinate 25 mg Tablet Extended Release 24 Hr 25 mg PO DAILY RF: 0 Discharge Instructions Instructions: Laparoscopic Cholecystectomy (DC) Additional Instructions: General Surgery Discharge Information Discharge Activities: 1. Continue incentive spirometry 10-15 times~every hour while awake and as tolerated 2. Ambulate at least 3 times a day for 15 minutes and as tolerated 3. Out of bed at least 3 times a day for 2 hours at a time, and as tolerated 4. You can shower, pat wounds dry, do not rub Restrictions: 1. No heavy lifting over 20 pounds for 2 weeks, no strenuous bending or twisting. 2. No swimming, baths, or immersion of wounds in water for 2 weeks. Therapies: None Follow-up appointments: Dr. Diaz on 07/04/18 at 09:30 for a quick check up. Dr. Schilling in 1 week. Their office is located in the upper level of the [employer] [facility] [address] the [facility]. The office number is [phone]. For any questions or to make, confirm appointments. If you are having fever, chills, nausea, vomiting, pain not controlled with pain medications, bleeding or drainage from your wounds. Call [phone] or [phone] (after hours). I understand the above instructions and have no questions. _ Signature of Patient or Responsible Adult Escort Date/Time _ Name of Responsible Adult Escort _ Signature of Nurse Date/Time Referrals: Kishor Diaz DO [ [facility] STAFF PHYSICIAN] - 07/04/18 9:30 am Activity:: No lifting, pulling or pushing >20 lb x 2 weeks Equipment/Supplies:: No Equipment Needed Diet:: low fat diet Discharge Orders Discharge Orders: Discharge Order (Routine); Ordered 07/02/18 Ordered By: Deloris Schilling Exam Resp Effort & Inspection: normal respiratory effort Auscultation: clear to auscultation bilaterally Cardio Rate: regular rate Rhythm: regular rhythm Heart Sounds: no gallops, no murmurs and no rubs GI Inspection: incision (c/d/i) Palpation: soft and tender (mild tenderness, no rebound and no gaurding) in the epigastrum and in the RLQ Auscultation: normal bowel sounds DS: Data Vitals/I&O Vitals and I&O: Vital Signs Temperature 99.1 F 07/02/18 11:34 Temperature Source Tympanic 07/02/18 11:34 Pulse 75 07/02/18 11:34 Pulse Rhythm Regular 07/02/18 09:23 Pulse 72 06/28/18 03:10 Respiratory Rate 18 07/02/18 11:34 Respiratory Effort 07/02/18 09:23 Respiratory Depth Normal 07/02/18 09:23 Respiratory Pattern Normal 07/02/18 09:23 Blood Pressure 108/72 07/02/18 11:34 Blood Pressure Mean 73 06/28/18 03:01 Pulse Oximetry 94 L 07/02/18 11:34 Respiratory End-tidal CO2 06/28/18 17:05 Oxygen Delivery Method Room Air 07/02/18 11:34 Oxygen Flow Rate 0 07/02/18 11:34 Fraction of Inspired Oxygen (FIO2) 2 06/28/18 20:40 Pain Level 4 07/02/18 11:34 Comment 07/01/18 13:14 Intake & Output 07/01/18 07/02/18 07/02/18 23:59 11:59 23:59 Intake Total 984.338 / 984.338 750 / 750 250 / 250 Output Total 900 / 900 900 / 900 Balance 84.338 / 84.338 -150 / -150 250 / 250 Intake: IV 194.338 / 194.338 50 / 50 Oral 790 / 790 700 / 700 250 / 250 Output: Urine 900 / 900 900 / 900 Other: Urine Color Straw Light Rosario Urine Appearance Clear Urine Odor None Strong Comment Void x1 in the toilet. urine very concentrated Stool Size Large Stool Characteristics Formed Hard Brown Voiding Methods Toilet Urinal Labs on day of discharge: Labs from last 24 hours 07/02/18 07/02/18 07/01/18 06:58 06:58 16:08 WBC 8.00 RBC 3.76 L Hgb 10.8 L Hct 33.6 L MCV 89.4 MCH 28.7 MCHC 32.1 RDW 12.2 Plt Count 238 MPV 10.0 Immature Gran % 0.3 Neutrophils % 71.8 Lymphocytes % 13.8 Monocytes % 10.4 Eosinophils % 3.3 Basophils % 0.4 Absolute Neutrophils 5.76 Absolute Lymphocytes 1.10 L Absolute Monocytes 0.83 H Absolute Eosinophils 0.26 Absolute Basophils 0.03 Sodium 136 Potassium 3.8 Chloride 100 Carbon Dioxide 31.2 Anion Gap 4.8 BUN 14 Creatinine 1.08 Estimated GFR/1.73 m2 >= 60.00 Glucose 104 H Calcium 8.3 L Magnesium 2.1 Total Bilirubin 1.0 AST 18 ALT 62 Alkaline Phosphatase 86 Troponin I 0.02 Total Protein 6.5 Albumin 2.3 L Preliminary micro results at discharge 06/28/18 10:25 Blood Culture - Preliminary Blood NO GROWTH 96 HOURS 06/28/18 10:15 Blood Culture - Preliminary Blood NO GROWTH 96 HOURS 06/28/18 14:16 Surgical Culture - Preliminary Gallbladder - Bile Escherichia coli Escherichia coli#2 Klebsiella pneumoniae PFSH Family History Father Pancreatic cancer Medical History Cholelithiasis with acute on chronic cholecystitis (Chronic) Fatty liver (Acute) Kidney stones (Chronic) Cardiomyopathy (Chronic) HTN (hypertension) (Chronic) Social History housing: house current occupational status: employed 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
[2018-07-02 15:34] VITALS: PULSE 82
[2018-07-02 16:18] VITALS: BP 112/76; PULSE 82; RESP 18; TEMP 37.7; O2SAT 96
== END 2018-07-02 16:47 | disposition home or self-care (01) | DRG 418 ==
LOC: ER 03:03 → MS 03:24
PROVIDERS: Admitting Provider Surgery; Emergency Provider Emergency Medicine; PCP Nurse Practitioner; Visit Provider Surgery
PROC: 0FT44ZZ Resection of Gallbladder, Percutaneous Endoscopic Approach (ICD-10-PCS; CPT 47562; principal; 2018-06-28 12:30)
DX: K80.12 Calculus of gallbladder with acute and chronic cholecystitis without obstruction (principal); K91.71 Accidental puncture and laceration of a digestive system organ or structure during a digestive system procedure; K91.61 Intraoperative hemorrhage and hematoma of a digestive system organ or structure complicating a digestive system procedure; J98.11 Atelectasis; K82.A1 Gangrene of gallbladder in cholecystitis; R07.9 Chest pain, unspecified; B96.20 Unspecified Escherichia coli [E. coli] as the cause of diseases classified elsewhere; B96.1 Klebsiella pneumoniae [K. pneumoniae] as the cause of diseases classified elsewhere; I10 Essential (primary) hypertension
CPT/HCPCS: 47562; 36410; 36415; 71275; 74177; 76942; 80053; 83690; 87040; 87077; 93005; 96361; 96374; 96375; 96376; 99223; 99285; NC; 83605; 83735; 84484; 85025; 87070; 87186; 87205; 88304; 93010; J0131; J1100; J1885; J2405; J2543; J3010; J3490

== ENCOUNTER 2018-07-04 09:27 | Outpatient (CLI) | payer BC, SELFPAY ==
[2018-07-04 10:01] LABS: HCT 35.6 % (40.0-50.0); HGB 11.7 g/dL (13.5-17.5); Mean Corp. HGB Concentration 32.9 g/dL (32.0-36.0); Mean Corpuscular Hemoglobin 28.7 pg (27.0-33.0); Mean Corpuscular Volume 87.5 fL (80-95); Mean Platelet Volume 9.9 fL (8.0-11.0); Platelet Count 280 x1000/uL (130-400); RBC 4.07 m/cumm (4.50-6.00); RBC Distribution Width 12.4 % (11.8-14.1); White Blood Cell Count 10.25 k/cumm (4.4-10.8)
[2018-07-04 10:28] LABS: Absolute Lymphocyte Count 1.03 k/cumm (1.2-3.4); Absolute Monocyte Count 0.72 k/cumm (0.11-0.7); Absolute Neutrophil Count 8.41 k/cumm (1.2-6.7); Atypical Lymphocytes % 1
[2018-07-04 10:29] LABS: Diff Comment Manual Differential; Polychromasia Present
--- NOTE | 2018-07-04 10:47 | DI.US_ITS ---
SYMPTOM/DIAGNOSIS: RUQ PAIN,DISTENSION AFTER LAP BHUMI, R10.11, ? BILOMA VS ABSCESS ABDOMEN ULTRASOUND: Comparison is made with CT of the abdomen and pelvis dated 07/01/18. The liver is enlarged and shows diffuse fatty infiltration. There is a small amount of fluid seen along the medial and inferior portion of the liver. There is a question of a few small air bubbles seen inferior to the liver which could represent a small abscess. The findings are not definitely changed from the previous exam. The common bile duct measures 7 mm. IMPRESSION: No gross interval change in small amount of fluid around the liver and fluid collection containing a few air bubbles at the inferior aspect of the liver. A follow up CT could be performed if clinically indicated.
[2018-07-04 11:08] LABS: ALT 65 U/L (12-78); AST 34 U/L (15-37); Albumin 2.8 g/dL (3.4-5.0); Alkaline Phosphatase 104 U/L (46-116); Anion Gap 10.6 mmol/L (3-11); BUN 13 mg/dL (7-18); Bilirubin, Total 0.6 mg/dL (0.2-1.0); CO2 28.4 mmol/L (21.0-32.0); Calcium 8.4 mg/dL (8.5-10.1); Chloride 98 mmol/L (98-107); Glucose 97 mg/dL (70-100); Sodium 137 mmol/L (136-145); Total Protein 6.6 g/dL (6.4-8.2)
== END 2018-07-04 09:47 ==
PROVIDERS: PCP Nurse Practitioner; Visit Provider Surgery
DX: R10.11 Right upper quadrant pain (principal); Z98.890 Other specified postprocedural states; Z90.49 Acquired absence of other specified parts of digestive tract; R16.0 Hepatomegaly, not elsewhere classified
CPT/HCPCS: 36415; 80053; 76705; 85025

== ENCOUNTER 2020-09-04 01:14 | Outpatient (CLI) | payer BC, SELFPAY ==
[2020-09-04 08:03] LABS: Abs Immature Grans 0.02 10^3/uL (0.0-0.06); Absolute Basophil Count 0.03 10^3/uL (0.0-0.2); Absolute Lymphocyte Count 2.48 10^3/uL (1.2-3.4); Absolute Monocyte Count 0.49 10^3/uL (0.1-0.8); Absolute Neutrophil Count 3.38 10^3/uL (1.2-6.7); Basophils % 0.5; HGB 15.1 g/dL (13.5-17.5); Immature Grans % 0.3; Lymphocytes % 37.6; MCH 28.3 pg (27.0-33.0); MCHC 32.8 % (32.0-36.0); MCV 86.1 fL (80-95); MPV 10.6 fL (8.0-11.0); Monocytes % 7.4; Neutrophils % 51.2; Nucleated RBC 0 %; Platelet Count 226 10^3/uL (130-400); RBC 5.34 10^6/uL (4.36-5.78); RDW 11.9 % (11.8-14.1); RDW-SD 37.4 fL
[2020-09-04 08:39] LABS: Iron 66 ug/dL (65-175); Total Iron Binding Capacity 363 ug/dL (250-450); Transferrin Sat 18 % (20-55)
[2020-09-04 09:26] LABS: ALT 31 U/L (16-63); AST 20 U/L (15-37); Albumin 4.4 g/dL (3.4-5.0); Alkaline Phosphatase 47 U/L (46-116); Anion Gap 9.1 mmol/L (3-11); BUN 22 mg/dL (7-18); Bilirubin, Total 0.4 mg/dL (0.2-1.0); CO2 27.9 mmol/L (21.0-32.0); CREATININE 1.1 mg/dL (0.70-1.30); Calculated LDL 157 mg/dL (<100); Chloride 100 mmol/L (98-107); Cholesterol 209 mg/dL (<200); Ferritin 137 ng/mL (26-388); Glucose 113 mg/dL (74-106); HDL Cholesterol 32 mg/dL (40-60); NT-proBNP 582 pg/mL (<300); Potassium 4.2 mmol/L (3.5-5.1); Sodium 137 mmol/L (136-145); TSH 2.51 uIU/mL (0.36-3.74); Total Protein 7.8 g/dL (6.4-8.2); Triglyceride 100 mg/dL (<150)
[2020-09-04 09:36] LABS: Uric Acid 10.1 mg/dL (3.5-7.2)
[2020-09-07 05:11] LABS: Vitamin D 25 Total 17.1 ng/ml (30-100)
[2020-09-07 10:45] LABS: Kappa Free Light Chain 1.78 mg/dL (0.33-1.94); Lambda Free Light Chain 1.04 mg/dL (0.57-2.63)
[2020-09-07 13:25] LABS: Albumin 62.6 % (55.8-66.1); Total Protein 7.8 g/dL (6.3-8.2)
[2020-09-07 15:23] LABS: Albumin, Urine % 13.3 % ((See Note)); Globulins, Urine % 86.7 %; Immunotyping, Urine (See Note); Total Protein Urine 10 mg/dL (See Note)
== END 2020-09-04 01:34 ==
PROVIDERS: PCP Nurse Practitioner; Visit Provider Internal Medicine Cardiovascular Disease
DX: I42.9 Cardiomyopathy, unspecified (principal); I50.82 Biventricular heart failure; M10.9 Gout, unspecified; I48.0 Paroxysmal atrial fibrillation; I10 Essential (primary) hypertension
CPT/HCPCS: 36415; 80053; 80061; 82306; 84156; 84166; 86335; 82728; 83036; 83540; 83550; 83880; 83883; 84165; 84443; 84550; 85025

== ENCOUNTER 2021-07-13 21:27 | Inpatient (IN) | payer BC, SELFPAY ==
[2021-07-13] VITALS (28 sets, daily range): BP systolic 74–136; BP diastolic 47–106; PULSE 58–170; RESP 0–43; TEMP 36.6; O2SAT 92–98
--- NOTE | 2021-07-13 21:30 | RT.EKG_ITS ---
APPROVED REPORT Exam: Resting ECG Reason for Exam: chest pain Patient Location: E HR:155 bpm ECG Measurements Heart Rate 155 [place] [id number] P [id number] QRSd 95 QRS -72 QT 302 T 87 QTc 486 Conclusion Atrial fibrillation...? atrial activity Inferior infarct, old...Q >35mS, II III aVF Anterior infarct, old...Q >40mS, abnormal ST-T, V2-V5 Nonspecific T abnormalities, lateral leads...T <-0.10mV, I aVL V5 V6 Physician: afib, no stemi
[2021-07-13] MEDS: Normal Saline 1,000 ML 1000 ML IV (22:07)
[2021-07-13] MEDS: dilTIAZem 25 MG/5 ML VIAL 15 MG IVP (22:10)
[2021-07-13 22:18] LABS: Abs Immature Grans 0.02 10^3/uL (0.0-0.06); Absolute Basophil Count 0.06 10^3/uL (0.0-0.2); Absolute Lymphocyte Count 3.46 10^3/uL (1.2-3.4); Absolute Monocyte Count 0.66 10^3/uL (0.1-0.8); Absolute Neutrophil Count 5.29 10^3/uL (1.2-6.7); Basophils % 0.6; Eosinophils % 2.1; HCT 42.6 % (40.0-50.0); HGB 13.9 g/dL (13.5-17.5); Immature Grans % 0.2; Lymphocytes % 35.7; MCH 28.7 pg (27.0-33.0); MCHC 32.6 % (32.0-36.0); MCV 87.8 fL (80-95); MPV 10.5 fL (8.0-11.0); Monocytes % 6.8; Neutrophils % 54.6; Nucleated RBC 0 %; Platelet Count 255 10^3/uL (130-400); RBC 4.85 10^6/uL (4.36-5.78); RDW-SD 38.7 fL; WBC 9.69 10^3/uL (4.4-10.8)
[2021-07-13 22:29] LABS: Source Nasal/Nares
[2021-07-13 22:50] LABS: ALT 24 U/L (16-63); AST 17 U/L (15-37); Albumin 3.8 g/dL (3.4-5.0); Alkaline Phosphatase 48 U/L (46-116); Anion Gap 7.8 mmol/L (3-11); BUN 27 mg/dL (7-18); Bilirubin, Total 0.2 mg/dL (0.2-1.0); CO2 29.2 mmol/L (21.0-32.0); CREATININE 1.5 mg/dL (0.70-1.30); Calcium 8.5 mg/dL (8.5-10.1); Chloride 103 mmol/L (98-107); Estimated GFR 49.15 (mL/min/1.73m2); Glucose 136 mg/dL (74-106); NT-proBNP 2201 pg/mL (<300); Potassium 3.9 mmol/L (3.5-5.1); Sodium 140 mmol/L (136-145); TSH (W/Ref FT4) 4.36 uIU/mL (0.36-3.74); Total Protein 7.1 g/dL (6.4-8.2); Troponin I < 0.05 ng/mL (<0.06)
[2021-07-13 22:51] LABS: PTT Activated 23.6 sec (21.0-27.5); Prothrombin Time 10.4 sec (9.3-11.0)
--- NOTE | 2021-07-13 23:00 | DI.RAD_ITS ---
Exam(s) XR PORTABLE CHEST AP EXAM: XR PORTABLE CHEST AP CLINICAL HISTORY: a fib w/ rvr TECHNIQUE: 2D digital imaging was performed of the chest. One image was obtained. An AP view was ob tained. COMPARISON: CR ABD FLAT UPRIGHT PA CHEST from 08/11/2015 FINDINGS: MEDIASTINUM: Normal. HEART: Normal. PULMONARY VASCULATURE: Normal. LUNGS: Opacity seen in the medial aspect of the right lung base. The lungs are otherwise clear. PLEURAL SPACE: No pleural effusion or pneumothorax. BONE:Within normal limits for the patient's age. OTHER FINDINGS:Normal. IMPRESSION: Streaky opacity in the medial aspect of the right lung base which may represent atelectasis but pneum onia cannot be excluded. Please correlate clinically. DATA REPOSITORY: RADIATION DOSE DELIVERED:
--- NOTE | 2021-07-13 23:01 | ED.GENADUL_ITS ---
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 He presents today for palpitations. Yesterday at 4 PM patient noticed onset of palpitations. They continued throughout the day, and then today they became notably more pronounced. He admits to symptoms of lightheadedness and feeling like his heart was beating out of his chest. He admits to mild chest achiness. He denies any recent long trips surgeries or procedures. He is active in general, and is again more than. He exercises regularly. He denies any significant new caffeine intake. He does have a daily cup of coffee in the morning. He does admit to chewing some [place] recently but denies any excessive amounts whatsoever. He denies any cocaine or stimulants otherwise. He is regularly on metoprolol. He denies missing any doses. No other complaints at this time. No other modifying factors. He is not on anticoagulants, and has not been on any for quite some time. Physical exam is unremarkable. No calf tenderness, lungs are clear. Vital signs demonstrate tachycardia in the 160s, it appears to be atrial fibrillation on the monitor. Blood pressure high. No signs of cardiogenic shock at this time. Patient otherwise looks relatively comfortable. Bedside ultrasound was performed, ejection fraction looks to be around 30 to 35% on bedside ultrasound. No pericardial effusion. No evidence of tamponade. Uncertain as to the cause of his acute return of A. fib, however ultrasound definitely demonstrates notable dilatation of his atria, this is likely a return of his electrical miss conduction secondary to his chronic cardiac dilatation. Meds metoprolol seems to not be functioning and it needed role, we will give dose of Cardizem IV, gently rehydrate, evaluate for potential electrolyte abnormalities or cardiac stress, monitor closely and reassess. Symptoms at this time are inconsistent with PE as he has no significant risk factors. He will likely need to be anticoagulated due to his return of his atrial fibrillation. Chads vas 2 score is 2 points. No indication for emergent cardioversion currently. 11 PM After administration of 15 mg of Cardizem the patient's heart rate went down notably to the 90s. He also fluid bolus at that time. Patient's blood pressure also dropped to the 80s systolic, gradually with the fluids he gradually returned towards normal/low normal blood pressure. I do feel that the patient would benefit from admission for new echo, transition to therapeutic oral medication, and initiation of anticoagulation. Patient eventually required Cardizem drip. Patient's laboratory work stable. Chest x-ray stable. Discussed the case with the hospitalist Dr. Oreilly, he agrees with the assessment and plan. Patient will be heparinized and admitted to the floor. I have extensively reviewed the treatment plan with the patient. I have addressed all patient concerns at this time. I have also discussed the plan with the admitting physician and they agree with the current assessment and plan and have agreed to assume responsibility for the patient. All parties demonstrate verbal understanding and agreement with our assessment and plan at this time. The documentation in this chart was dictated using [employer] dictation software. Please excuse any dictation errors. HPI General Date/Time Provider Initiated Documentation: 07/13/21 21:44 . 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 He presents today for palpitations. Yesterday at 4 PM patient noticed onset of palpitations. They continued throughout the day, and then today they became notably more pronounced. He admits to symptoms of lightheadedness and feeling like his heart was beating out of his chest. He admits to mild chest achiness. He denies any recent long trips surgeries or procedures. He is active in general, and is again more than. He exercises regularly. He denies any significant new caffeine intake. He does have a daily cup of coffee in the morning. He does admit to chewing some [place] recently but denies any excessive amounts whatsoever. He denies any cocaine or stimulants otherwise. He is regularly on metoprolol. He denies missing any doses. No other complaints at this time. No other modifying factors. He is not on anticoagulants, and has not been on any for quite some time. Related Data Home Medications Medication Instructions Recorded Confirmed aspirin [Aspir-81] 81 mg PO QAM 10/28/12 07/13/21 metoprolol succinate 25 mg PO DAILY 06/28/18 07/13/21 torsemide 40 mg PO DAILY 06/28/18 07/13/21 acetaminophen [Tylenol] 650 mg PO Q6H PRN PRN #30 tab 07/02/18 07/14/21 diclofenac sodium 75 mg 75 mg PO Q12H PRN tab 08/14/19 07/13/21 tablet,delayed release sacubitril-valsartan [Entresto] 1 tab PO BID 07/13/21 07/14/21 spironolactone 25 mg PO DAILY 07/13/21 07/13/21 Previous Rx's Medication Instructions Recorded acetaminophen [Tylenol] 650 mg PO Q6H PRN PRN #30 tab 07/02/18 Allergies Allergy/AdvReac Type Severity Reaction Status Date / Time amoxicillin [Amoxicillin] Allergy Skin Rash Unverified 07/13/21 21:42 General Stated Complaint: Palpitatns MEREDITH: 3 Review of Systems All systems reviewed & are unremarkable except as noted in HPI and below PFSH Active Problem List Cubital tunnel syndrome, bilateral (Acute) Bilateral carpal tunnel syndrome (Acute) Follow up (Acute) Chest pain (Acute) S/P laparoscopic cholecystectomy (Acute ~06/28/18) Cholelithiasis with acute on chronic cholecystitis (Chronic) Cholecystitis (Acute) Medical History Ankle pain Anxiety with depression Back injury Cardiomyopathy Fatty liver H/O angiography Heel pain History of cardioversion HTN (hypertension) Kidney stones Surgical History H/O left knee surgery Hx of shoulder surgery S/P ablation of atrial fibrillation S/P ablation operation for arrhythmia S/P cardiac catheterization Family History Father Pancreatic cancer Hypertension Prostate cancer Mother Diabetes Social History Smoking/Tobacco Use Status: Current-Occasional Tobacco Type: smokeless tobacco Smoking risk assessment performed?: Yes Alcohol Intake: never Drug use: Never Substance use type: does not use Housing: house Number of Children: 2 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 3.ENT: Atraumatic external nose and ears. Moist MM. Neck: Symmetric, trachea midline, No thyromegaly. 4.CVS: +S1/S2, No murmurs or gallops. Peripheral pulses 2+ and equal in all extremities. Brisk capillary refill in all extremities. 5.RESP: Unlabored respiratory effort. Clear to auscultation bilaterally. No wheezes rales or rhonchi 6.GI: Soft, Nontender/Nondistended, No hepatosplenomegaly. No guarding or rebound. 7.MSK: Normocephalic/Atraumatic, Extremities w/o deformity or ttp No cyanosis or clubbing, Normal movement of all extremities, no calf tenderness 8.Skin: Warm, Dry. No rashes or lesions. 9.Neuro: rapier insertion loom fixer II-XII grossly intact. Sensation grossly intact, no focal neurologic deficits. 10.Psych: (AAO) x3. Appropriate mood and affect Course Vital Signs Vital signs: Vital Signs Temperature 36.6 C 07/13/21 21:35 Pulse 170 H 07/13/21 21:35 Respiratory Rate 22 07/13/21 21:35 Blood Pressure 113/77 07/13/21 21:35 Pulse Oximetry 98 07/13/21 21:35 Temperature 36.6 C 07/13/21 21:35 Pulse 77 07/13/21 22:38 Pulse 81 07/13/21 22:38 Respiratory Rate 16 07/13/21 22:38 Respiratory Effort Non-Labored 07/13/21 21:47 Blood Pressure 74/56 L 07/13/21 22:38 Blood Pressure Mean 60 07/13/21 22:38 Blood Pressure Position Sitting 07/13/21 21:35 Pulse Oximetry 96 07/13/21 22:38 Pain Level 5 07/13/21 21:35 Lab/Test Results Lab/Test Results: Laboratory Tests Range/Units 07/13/21 07/13/21 07/13/21 22:04 22:04 22:17 WBC (4.4-10.8) 10^3/uL 9.69 RBC (4.36-5.78) 10^6/uL 4.85 Hgb (13.5-17.5) g/dL 13.9 Hct (40.0-50.0) % 42.6 MCV (80-95) fL 87.8 MCH (27.0-33.0) pg 28.7 MCHC (32.0-36.0) % 32.6 RDW (11.8-14.1) % 12.0 Plt Count (130-400) 10^3/uL 255 MPV (8.0-11.0) fL 10.5 Immature Gran % 0.2 Neutrophils % 54.6 Lymphocytes % 35.7 Monocytes % 6.8 Eosinophils % 2.1 Basophils % 0.6 Nucleated RBC % % 0 Absolute Neutrophils (1.2-6.7) 10^3/uL 5.29 Absolute Lymphocytes (1.2-3.4) 10^3/uL 3.46 H Absolute Monocytes (0.1-0.8) 10^3/uL 0.66 Absolute Eosinophils (0.0-0.7) 10^3/uL 0.20 Absolute Basophils (0.0-0.2) 10^3/uL 0.06 PT (9.3-11.0) sec 10.4 INR (0.9-1.1) 1.0 APTT (21.0-27.5) sec 23.6 COVID-19 Source Nasal/Nares Critical Care Time Critical Care Time Critical Care Time: Yes Total Critical Care Time: 45 Attestation: Upon my evaluation, this patient had a high probability of imminent or life-threatening deterioration, which required my direct attention, intervention, and personal management. I have personally provided 45 minutes of critical care time exclusive of time spent on separately billable procedures. Time includes review of laboratory data, radiology results, discussion with consultants, and monitoring for potential decompensation. Interventions were performed as documented.
[2021-07-13 23:29] LABS: FREE T4 0.92 ng/dL (0.76-1.46)
[2021-07-13] MEDS: dilTIAZem 125 MG in Normal Saline 100 ML IV (23:41)
[2021-07-14] VITALS (193 sets, daily range): BP systolic 76–132; BP diastolic 48–104; PULSE 55–200; RESP 3–42; TEMP 36–37; O2SAT 84–99
[2021-07-14] MEDS: Digoxin 0.5 MG/2 ML AMP 0.25 MG IVP (00:22)
--- NOTE | 2021-07-14 00:25 | DI.VRAD_ITS ---
PROCEDURE INFORMATION: Exam: XR Chest Exam date and time: 07/13/2021 11:08 PM Age: 50 years old Clinical indication: Cardiovascular condition or disease; Atrial fibrillation; Patient HX: A fib w/ rvr TECHNIQUE: Imaging protocol: XR of the chest. Views: 1 view. COMPARISON: CT Private^PE ABDOMEN PELVIS (Adult) 07/01/2018 10:06 AM FINDINGS: Lungs: Asymmetric streaky opacity within the medial right lung base. Otherwise no focal consolidation. Pleural spaces: Right costophrenic angle is obscured, cannot exclude trace/small right pleural effusion. No left pleural effusion. No pneumothorax. Heart/Mediastinum: Cardiomediastinal contours within normal limits. Bones/joints: No acute osseous finding. IMPRESSION: Asymmetric streaky opacity in the medial right lung base favored to represent subsegmental atelectasis versus prominent pulmonary vessels however cannot exclude infection in the appropriate setting. Dictated and Authenticated by: Presley Warren MD. Ordering:CHELO Doyle MD
[2021-07-14 01:02] LABS: Troponin I 0.05 ng/mL (<0.06)
[2021-07-14] MEDS: Digoxin 0.5 MG/2 ML AMP 0.125 MG IVP ×2 (04:15→15:31)
[2021-07-14 05:36] LABS: Abs Immature Grans 0.02 10^3/uL (0.0-0.06); Absolute Basophil Count 0.05 10^3/uL (0.0-0.2); Absolute Eosinophil Count 0.25 10^3/uL (0.0-0.7); Absolute Lymphocyte Count 2.62 10^3/uL (1.2-3.4); Absolute Monocyte Count 0.66 10^3/uL (0.1-0.8); Absolute Neutrophil Count 5.56 10^3/uL (1.2-6.7); Basophils % 0.5; Eosinophils % 2.7; HCT 39.7 % (40.0-50.0); HGB 12.6 g/dL (13.5-17.5); Immature Grans % 0.2; Lymphocytes % 28.6; MCH 28.2 pg (27.0-33.0); MCHC 31.7 % (32.0-36.0); MCV 88.8 fL (80-95); MPV 10.1 fL (8.0-11.0); Monocytes % 7.2; Neutrophils % 60.8; Nucleated RBC 0 %; Platelet Count 196 10^3/uL (130-400); RBC 4.47 10^6/uL (4.36-5.78); RDW 12.1 % (11.8-14.1); RDW-SD 39.8 fL; WBC 9.16 10^3/uL (4.4-10.8)
[2021-07-14 05:55] LABS: PTT Activated 71.2 sec (21.0-27.5)
[2021-07-14 05:57] LABS: Anion Gap 3.6 mmol/L (3-11); BUN 25 mg/dL (7-18); CO2 31.4 mmol/L (21.0-32.0); CREATININE 1.4 mg/dL (0.70-1.30); Calcium 8.3 mg/dL (8.5-10.1); Chloride 106 mmol/L (98-107); Estimated GFR 53.22 (mL/min/1.73m2); Glucose 115 mg/dL (74-106); Potassium 4.4 mmol/L (3.5-5.1); Sodium 141 mmol/L (136-145)
--- NOTE | 2021-07-14 08:29 | W.PM.PROGNOT ---
Date of Service Date of service: 07/14/21 Time of Service: 14:27 Assessment and Plan Assessment and plan (1) Rapid atrial fibrillation: Status: Acute Assessment and plan: Will continue digoxin and titrate metoprolol up as much as BP and patient can tolerate. However, I anticipate that, just like in his previous bout of Afib, he is going to require cardioversion and/or ablation and, therefore, a transfer. Will make him NPO after midnight and continue heparin gtt. Await cardiology consult in am and echo. Anticipate transfer. (2) Hypotension: Status: Acute Assessment and plan: Due to uncontrolled Afib. The patient is tolerating BPs in the 90s and I think we should continue to intensify beta blockade as long as the patient is not symptomatic. (3) Chronic systolic CHF (congestive heart failure): Status: Acute Assessment and plan: Last LVEF is 37%. Await repeat echo. We are holding entresto in light of low BPs, but will give his home torsemide at this time. (4) Obstructive sleep apnea: Status: Chronic Assessment and plan: Will likely need to have CPAP set up as outpatient. I suspect this is one of the triggers for his recurrent rapid Afib. (5) DVT prophylaxis: Status: Acute Assessment and plan: On therapeutic heparin gtt (6) Discharge planning issues: Status: Acute Assessment and plan: Full code Anticipate transfer for cardioversion vs ablation tomorrow. NPO after midnight. Total Critical Care Time 35 minutes. Subjective Subjective Interval history since last seen: Off of cardizem drip since last night. HR today 120s-140s, rapid Afib. Up to 160s when he gets up. The patient states he is not dizzy right now, denies chest pain, shortness of breath, nausea. He states that in the past medications failed to control his heart rate and he did require cardioversion x2 and ablation. The patient states that he had a sleep study in the past when CPAP was recommended, but they didn't push it on me. We discussed how untreated sleep apnea could be related to his Afib recurring. We also discussed that this admission will likely result in the need for cardioversion and, therefore, transfer. He may have to have another ablation. He and verbalized understanding. Exam Narrative Exam Narrative: General: Very pleasant middle-aged Obese male who appears comfortable on RA in bed, A&Ox3 HEENT: EOMI, MMM, large neck diameter Heart: irregularly irregular rhythm, tachycardic Lungs: coarse breath sounds at B bases, fine rales Abdomen: soft, nontender, nondistended Extremities: no edema BLE's Objective Last Vital Signs Temp 37.0 C 07/14/21 04:29 Pulse 84 07/14/21 06:08 Resp 29 H 07/14/21 06:40 BP 102/63 07/14/21 06:08 Pulse Ox 96 07/14/21 06:40 Laboratory Results - last 24 hr 07/13/21 07/13/21 07/13/21 22:04 22:04 22:04 WBC 9.69 RBC 4.85 Hgb 13.9 Hct 42.6 MCV 87.8 MCH 28.7 MCHC 32.6 RDW 12.0 Plt Count 255 MPV 10.5 Immature Gran % 0.2 Neutrophils % 54.6 Lymphocytes % 35.7 Monocytes % 6.8 Eosinophils % 2.1 Basophils % 0.6 Nucleated RBC % 0 Absolute Neutrophils 5.29 Absolute Lymphocytes 3.46 H Absolute Monocytes 0.66 Absolute Eosinophils 0.20 Absolute Basophils 0.06 PT 10.4 INR 1.0 APTT 23.6 Sodium 140 Potassium 3.9 Chloride 103 Carbon Dioxide 29.2 Anion Gap 7.8 BUN 27 H Creatinine 1.5 H Estimated GFR/1.73 m2 49.15 Glucose 136 H Calcium 8.5 Total Bilirubin 0.2 AST 17 ALT 24 Alkaline Phosphatase 48 Troponin I < 0.05 NT-Pro-B Natriuret Pep 2201 H Total Protein 7.1 Albumin 3.8 TSH 4.36 H Free T4 0.92 COVID-19 Source 07/13/21 07/14/21 07/14/21 22:17 00:30 05:27 WBC RBC Hgb Hct MCV MCH MCHC RDW Plt Count MPV Immature Gran % Neutrophils % Lymphocytes % Monocytes % Eosinophils % Basophils % Nucleated RBC % Absolute Neutrophils Absolute Lymphocytes Absolute Monocytes Absolute Eosinophils Absolute Basophils PT INR APTT Sodium 141 Potassium 4.4 Chloride 106 Carbon Dioxide 31.4 Anion Gap 3.6 BUN 25 H Creatinine 1.4 H Estimated GFR/1.73 m2 53.22 Glucose 115 H Calcium 8.3 L Total Bilirubin AST ALT Alkaline Phosphatase Troponin I 0.05 NT-Pro-B Natriuret Pep Total Protein Albumin TSH Free T4 COVID-19 Source /Nares 07/14/21 07/14/21 05:27 05:27 WBC 9.16 RBC 4.47 Hgb 12.6 L Hct 39.7 L MCV 88.8 MCH 28.2 MCHC 31.7 L RDW 12.1 Plt Count 196 MPV 10.1 Immature Gran % 0.2 Neutrophils % 60.8 Lymphocytes % 28.6 Monocytes % 7.2 Eosinophils % 2.7 Basophils % 0.5 Nucleated RBC % 0 Absolute Neutrophils 5.56 Absolute Lymphocytes 2.62 Absolute Monocytes 0.66 Absolute Eosinophils 0.25 Absolute Basophils 0.05 PT INR APTT 71.2 H D Sodium Potassium Chloride Carbon Dioxide Anion Gap BUN Creatinine Estimated GFR/1.73 m2 Glucose Calcium Total Bilirubin AST ALT Alkaline Phosphatase Troponin I NT-Pro-B Natriuret Pep Total Protein Albumin TSH Free T4 COVID-19 Source
--- NOTE | 2021-07-14 08:38 | PDOC.CMIN ---
- If Service Date Differs Date of service: 07/14/21 Time of Service: 08:38 Care Management Initial Assess REASON FOR HOSPITALIZATION:: Atrial Fib with RVR PAST MEDICAL HISTORY/PAST SURGICAL HISTORY:: Medical history: Ankle pain, anxiety with depression,back injury, cardiomyopathy, Cholelithiasois, fatty liver, HTN, kidney stones. Surgical history:S/P: knee surgery, shoulder surgery, ablation for afib,. cardiac cath, lap tommy PREVIOUS FUNCTIONAL STATUS/SOCIAL/FAMILY SUPPORTS:: Vitor lives in [place], [place] with his Ragini and her 3 daughters. He works for the [employer] as a [employer] and is independent at baseline. vitor does not receive any community services and does not anticipate needing any when discharged. CURRENT FUNCTIONAL STATUS:: Vitor was sitting up in bed visiting with his when CM met with him. He was pleasant and agreeable to conversation. Vitor is not rssponding to medication to control his heartrate per provider, so the plan will be for cardiology to see him tomorrow for a possible cardioversion. ADVANCE DIRECTIVES:: none on file. Maddie have completed AD forms but have yet to file them. They plan to do so soon. Has patient been provided with info about the portal/API?: Yes Did the patient sign up for the portal?: No CODE STATUS:: Full Code INSURANCE COVERAGE / FINANCIAL ISSUES:: BS CURRENT HOME/COMMUNITY SERVICES/EQUIPMENT:: none currently PRIMARY CARE PHYSICIAN:: Obed Castro POTENTIAL DISCHARGE NEEDS:: Follow up with PCP and discharge plan of care PATIENT/FAMILY EDUCATION NEEDS:: Review of discharge instructions, medications, limitations, activity, follow up plan, Ask Me Three TRANSPORTATION:: via private vehicle with family PLAN:: Vitor will likely be discharged home with no new services. He will follow up with his PCP, Cardiology and plan of care. CM will continue to support Vitor and his discharge needs.
--- NOTE | 2021-07-14 08:53 | HPE_ITS ---
Date of service: 07/13/21 Time of Service: 21:54 Assessment and Plan Assessment and plan (1) Atrial fibrillation: Status: Chronic Assessment and plan: I reviewed his studies and examined the patient. I decided to try a low dose of diltiazem intravenously to see if this would control his ventricular response without hypotension. Started 2.5 mg an hour but his pressure dropped with this so this was stopped and was started on digoxin starting 0.25 mg immediately then a few hours later 0.125 mg as a follow-up dose. He will be admitted to the intensive care unit. His intravenous heparin will be continued. I will continue his other medicines. (2) Heart failure: Status: Acute Assessment and plan: His heart failure seems to be stable. We will check an echocardiogram. History of Present Illness History of Present Illness Chief Complaint: palpitations and lightheadedness Narrative: This 50-year-old male is here because of palpitations. Lightheadedness. He has a history of cardiomyopathy that was probably related to a viral infection dating to 2015. He had a ablation for atrial fibrillation in 2016. He was on a apixaban for short while around the time of his atrial fibrillation. He has a continued cardiomyopathy with ejection fractions of 35 to 37%. He is followed by cardiology at [facility] and he states that his last ejection fraction went up about 2% and he has felt much better since starting on Entresto. 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 He does not seem to be limited by his heart failure. 2 days ago he began having some palpitations with lightheadedness. The symptoms persisted and he came to the emergency department where he was found to be atrial fibrillation with a rapid ventricular response. He was given a dose of 50 mg diltiazem intravenously his blood pressure dropped to 70. It did respond to about 750 cc of fluid administration. I was called to see him for an admission to the hospital for the atrial fibrillation and rapid ventricular response. He has had his 3 coronavirus doses of the vaccine. He has not been around anyone else been sick. His follow-up appointment for [facility] cardiology is in August. He does not use marijuana cocaine or other recreational drugs. He does not drink alcohol. He does use chewing tobacco and uses about 1 can every 2 days. He was started on intravenous heparin by the emergency department. Review of Systems Constitutional Constitutional: Denies chills, Denies fever(s) and Denies malaise ENT Ears, Nose, Mouth, and Throat: Reports dizziness Cardiovascular Cardiovascular: Denies chest pain, Reports rapid heart rate, Denies pedal edema, Reports palpitations and Denies dyspnea Respiratory Respiratory: Denies chest congestion, Denies cough and Denies dyspnea Gastrointestinal Gastrointestinal: Denies abdominal pain, Denies diarrhea, Denies loose stools, Denies nausea and Denies vomiting Genitourinary Genitourinary: Denies oliguria and Denies difficulty urinating Neurologic Neurologic: Reports dizziness Endocrine Endocrine: Reports palpitations [facility] Active Problem List Cubital tunnel syndrome, bilateral (Acute) Bilateral carpal tunnel syndrome (Acute) Follow up (Acute) Chest pain (Acute) S/P laparoscopic cholecystectomy (Acute ~06/28/18) Cholelithiasis with acute on chronic cholecystitis (Chronic) Cholecystitis (Acute) Medical History Ankle pain Anxiety with depression Back injury Cardiomyopathy Fatty liver H/O angiography Heel pain History of cardioversion HTN (hypertension) Kidney stones Surgical History H/O left knee surgery Hx of shoulder surgery S/P ablation of atrial fibrillation S/P ablation operation for arrhythmia S/P cardiac catheterization Family History Father Pancreatic cancer Hypertension Prostate cancer Mother Diabetes Social History Smoking/Tobacco Use Status: Current-Occasional Tobacco Type: smokeless tobacco Smoking risk assessment performed?: Yes Alcohol Intake: never Drug use: Never Substance use type: does not use Housing: house Number of Children: 2 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 Pets and animals: Yes (dog) What is your relationship status?: Panel score (0-1 are the most socially isolated patients): 0 Seatbelt use: always Do you feel safe at home: Yes Do you feel safe in your relationship?: Yes Meds Allergies and Home Medications Allergies Allergy/AdvReac Type Severity Reaction Status Date / Time amoxicillin [Amoxicillin] Allergy Skin Rash Unverified 07/13/21 21:42 Home Medications Medication Instructions Recorded Confirmed Type aspirin [Aspir-81] 81 mg PO QAM 10/28/12 07/13/21 History metoprolol succinate 25 mg PO DAILY 06/28/18 07/13/21 History torsemide 40 mg PO DAILY 06/28/18 07/13/21 History acetaminophen [Tylenol] 650 mg PO Q6H PRN PRN #30 tab 07/02/18 07/04/18 Rx ibuprofen 600 mg PO QID PRN #30 tab 07/02/18 07/13/21 Rx atorvastatin 40 mg tablet 40 mg PO DAILY 08/14/19 History diclofenac sodium 75 mg 75 mg PO Q12H PRN tab 08/14/19 07/13/21 History tablet,delayed release indomethacin 50 mg capsule 50 mg PO TID 08/14/19 History losartan 50 mg tablet 25 mg PO DAILY tab 08/14/19 History montelukast 10 mg tablet 10 mg PO DAILY 08/14/19 History scopolamine base 1 mg over 3 days 1 patch TD Q72H 08/14/19 History transdermal patch sacubitril-valsartan [Entresto] 2 tab PO DAILY 07/13/21 History spironolactone 25 mg PO DAILY 07/13/21 07/13/21 History Exam Const General: cooperative, well groomed, not diaphoretic and well hydrated Nutritional Appearance: overweight Orientation: alert, awake and oriented x3 Neck Neck: normal visual inspection and no lymphadenopathy Thyroid: thyroid normal Resp Effort & Inspection: normal respiratory effort, able to speak in complete sentences and not tachypneic Auscultation: clear to auscultation bilaterally, no rales, no rhonchi and no wheezes Cardio Jugular venous pressure: no JVD Rate: tachycardic Rhythm: abnormal rhythm Heart Sounds: S1 normal, S2 normal, no gallops and no murmurs GI Inspection: normal to inspection Palpation: soft, no hepatosplenomegaly and nontender Neuro Speech: speech normal Extrem General: normal to inspection and no pedal edema Results Labs Result diagrams: 07/14/21 05:27 07/14/21 05:27 Labs: Laboratory Results - last 24 hr 07/13/21 07/13/21 07/13/21 22:04 22:04 22:04 WBC 9.69 RBC 4.85 Hgb 13.9 Hct 42.6 MCV 87.8 MCH 28.7 MCHC 32.6 RDW 12.0 Plt Count 255 MPV 10.5 Immature Gran % 0.2 Neutrophils % 54.6 Lymphocytes % 35.7 Monocytes % 6.8 Eosinophils % 2.1 Basophils % 0.6 Nucleated RBC % 0 Absolute Neutrophils 5.29 Absolute Lymphocytes 3.46 H Absolute Monocytes 0.66 Absolute Eosinophils 0.20 Absolute Basophils 0.06 PT 10.4 INR 1.0 APTT 23.6 Sodium 140 Potassium 3.9 Chloride 103 Carbon Dioxide 29.2 Anion Gap 7.8 BUN 27 H Creatinine 1.5 H Estimated GFR/1.73 m2 49.15 Glucose 136 H Calcium 8.5 Total Bilirubin 0.2 AST 17 ALT 24 Alkaline Phosphatase 48 Troponin I < 0.05 NT-Pro-B Natriuret Pep 2201 H Total Protein 7.1 Albumin 3.8 TSH 4.36 H Free T4 0.92 COVID-19 Source 07/13/21 07/14/21 07/14/21 22:17 00:30 05:27 WBC RBC Hgb Hct MCV MCH MCHC RDW Plt Count MPV Immature Gran % Neutrophils % Lymphocytes % Monocytes % Eosinophils % Basophils % Nucleated RBC % Absolute Neutrophils Absolute Lymphocytes Absolute Monocytes Absolute Eosinophils Absolute Basophils PT INR APTT Sodium 141 Potassium 4.4 Chloride 106 Carbon Dioxide 31.4 Anion Gap 3.6 BUN 25 H Creatinine 1.4 H Estimated GFR/1.73 m2 53.22 Glucose 115 H Calcium 8.3 L Total Bilirubin AST ALT Alkaline Phosphatase Troponin I 0.05 NT-Pro-B Natriuret Pep Total Protein Albumin TSH Free T4 COVID-19 Source Nasal/Nares 07/14/21 07/14/21 05:27 05:27 WBC 9.16 RBC 4.47 Hgb 12.6 L Hct 39.7 L MCV 88.8 MCH 28.2 MCHC 31.7 L RDW 12.1 Plt Count 196 MPV 10.1 Immature Gran % 0.2 Neutrophils % 60.8 Lymphocytes % 28.6 Monocytes % 7.2 Eosinophils % 2.7 Basophils % 0.5 Nucleated RBC % 0 Absolute Neutrophils 5.56 Absolute Lymphocytes 2.62 Absolute Monocytes 0.66 Absolute Eosinophils 0.25 Absolute Basophils 0.05 PT INR APTT 71.2 H D Sodium Potassium Chloride Carbon Dioxide Anion Gap BUN Creatinine Estimated GFR/1.73 m2 Glucose Calcium Total Bilirubin AST ALT Alkaline Phosphatase Troponin I NT-Pro-B Natriuret Pep Total Protein Albumin TSH Free T4 COVID-19 Source Last Vital Signs Temp 37.0 C 07/14/21 04:29 Pulse 84 07/14/21 06:08 Resp 29 H 07/14/21 06:40 BP 102/63 07/14/21 06:08 Pulse Ox 96 07/14/21 06:40
[2021-07-14] MEDS: Aspirin E.C. 81 MG TABEC PO (09:23)
[2021-07-14] MEDS: Metoprolol CR 25 MG TABCR PO (09:23)
[2021-07-14] MEDS: Metoprolol 5 MG/5 ML VIAL 2.5 MG IVP ×4 (09:23→18:26)
[2021-07-14] MEDS: Normal Saline Flush 10 ML SYR IVP (09:28)
[2021-07-14 09:43] LABS: COVID-19 PCR Negative (Negative)
[2021-07-14] MEDS: Digoxin 0.125 MG TAB PO (10:30)
--- NOTE | 2021-07-14 13:06 | PHA.REVIEW ---
Pharmacy Admission Review - Admission Clinical Review (Last Reviewed 07/13/21 @ 23:04 by Vivek Cosme DO) Heart failure (Acute) amoxicillin [Amoxicillin] Allergy (Unverified 07/13/21 21:42) Skin Rash Resuscitation Status Full Code Height 5 ft 8 in Weight 108.1 kg - Renal Dosing Renal Dosing: BUN 25 mg/dL (7-18) H 07/14/21 05:27 Creatinine 1.4 mg/dL (0.70-1.30) H 07/14/21 05:27 Medications needing adjustments: Reviewed (SCr: 1.4, CrCl~73.6 (using adjusted body weight). All medications dosed appropriately.) - Anticoagulation Anticoagulation: Hgb 12.6 g/dL (13.5-17.5) L 07/14/21 05:27 Hct 39.7 % (40.0-50.0) L 07/14/21 05:27 Plt Count 196 10^3/uL (130-400) 07/14/21 05:27 INR 1.0 (0.9-1.1) 07/13/21 22:04 Creatinine 1.4 mg/dL (0.70-1.30) H 07/14/21 05:27 DVT Prophylaxis: Reviewed Medications: Heparin - Opiate Usage Evaluate Pain Scale/Pains Meds: N/A (No opiates administered this admission.) - Relevant Labs Sodium 141 mmol/L (136-145) 07/14/21 05:27 Potassium 4.4 mmol/L (3.5-5.1) 07/14/21 05:27 Chloride 106 mmol/L (98-107) 07/14/21 05:27 Electrolytes, C-Reactive P, ESR: Reviewed - DM Control DM Control: Glucose 115 mg/dL (74-106) H 07/14/21 05:27 Insulin Dosing: N/A - Heart Failure/NE Heart Failure/NE: Troponin I 0.05 ng/mL (<0.06) 07/14/21 00:30 NT-Pro-B Natriuret Pep 2201 pg/mL (<300) H 07/13/21 22:04 EF%, BEVERLY's, B-Blockers, Diuretics: Reviewed (Sacubitril/Valsartan 24/26mg BID, Metoprolol succ ER 25mg daily, Spironolactone 25mg daily, Torsemide 40mg daily. EF% 35-37%) - BP Control BP Control: Blood Pressure 92/64 Blood Pressure 98/56 Blood Pressure 98/56 Blood Pressure 109/74 Blood Pressure 88/68 Blood Pressure 99/73 Blood Pressure 92/73 Blood Pressure 102/63 Blood Pressure 89/64 Blood Pressure 91/60 Blood Pressure 90/67 Blood Pressure 101/78 Blood Pressure 86/54 Blood Pressure 95/48 Blood Pressure 99/68 Blood Pressure 105/85 Blood Pressure 104/63 Blood Pressure 98/55 Blood Pressure 132/104 If elevated: N/A (Blood pressure low this admission.) - Qtc Review If Elevated: Reviewed (QTc 486 on admission.) - IV to PO Switch IV Medications: Reviewed - Home Meds Home Med List reviewed: Intervened (Discontinued Montelukast and Atorvastatin 10mg - per office lists and patient, no longer taking.) - Current meds Current Medication Order Review: Reviewed - Comments Comments/Follow Ups: Continue to monitor blood pressure, heart rate, labs, vital signs and for medication changes (avoid QT prolonging medications).
[2021-07-14 14:28] LABS: PTT Activated 45.7 sec (21.0-27.5)
[2021-07-14] MEDS: Metoprolol 25 MG TAB PO (14:54)
[2021-07-14] MEDS: Torsemide 20 MG TAB 40 MG PO (15:35)
[2021-07-14] MEDS: Acetaminophen 325 MG TAB 650 MG PO (16:30)
[2021-07-15] VITALS (99 sets, daily range): BP systolic 81–123; BP diastolic 49–92; PULSE 64–165; RESP 0–37; TEMP 36.5–37.1; O2SAT 84–98
[2021-07-15] MEDS: Metoprolol 25 MG TAB PO ×4 (01:54→21:23)
[2021-07-15 07:27] LABS: HCT 40.3 % (40.0-50.0); MCH 28.4 pg (27.0-33.0); MCHC 32.3 % (32.0-36.0); MPV 10.6 fL (8.0-11.0); Platelet Count 232 10^3/uL (130-400); RBC 4.58 10^6/uL (4.36-5.78); RDW-SD 38.6 fL; WBC 10.46 10^3/uL (4.4-10.8)
[2021-07-15 07:51] LABS: PTT Activated 41.9 sec (21.0-27.5)
[2021-07-15 07:52] LABS: Anion Gap 8.8 mmol/L (3-11); BUN 21 mg/dL (7-18); CO2 26.2 mmol/L (21.0-32.0); CREATININE 1.3 mg/dL (0.70-1.30); Calcium 8.7 mg/dL (8.5-10.1); Chloride 103 mmol/L (98-107); Estimated GFR 57.97 (mL/min/1.73m2); Glucose 105 mg/dL (74-106); Magnesium 2.3 mg/dL (1.8-2.4); Potassium 4.4 mmol/L (3.5-5.1); Sodium 138 mmol/L (136-145)
[2021-07-15] MEDS: Torsemide 20 MG TAB 40 MG PO (08:27)
[2021-07-15] MEDS: Sacubitril/Valsartan 24 mg/26 mg TAB 1 EACH PO ×2 (08:27→19:54)
[2021-07-15] MEDS: Digoxin 0.125 MG TAB PO (08:28)
[2021-07-15] MEDS: Aspirin E.C. 81 MG TABEC PO (08:29)
[2021-07-15 08:33] LABS: Digoxin 0.62 ng/mL (0.90-2.00)
--- NOTE | 2021-07-15 08:45 | PGE_ITS ---
Date of Service Date of service: 07/15/21 Time of Service: 18:44 Assessment and Plan Assessment and plan (1) Rapid atrial fibrillation: Status: Acute Assessment and plan: Will continue digoxin/metoprolol. Requires cardioversion with MARIA A prior, which we are unable to perform. Transfer to [facility] today was impossible. Will reattempt tomorrow or, at least, try to set up a [id number] transfer. If not, the patient states he will go to a farther facility if needed. (2) Hypotension: Status: Acute Assessment and plan: Due to uncontrolled Afib. The patient is tolerating BPs in the 90s and I think we should continue to intensify beta blockade as long as the patient is not symptomatic. (3) Chronic systolic CHF (congestive heart failure): Status: Acute Assessment and plan: LVEF is 25% on the echo while in rapid AFIb. As above. We are holding entresto in light of low BPs. Continue torsemide. (4) Obstructive sleep apnea: Status: Chronic Assessment and plan: Will likely need to have CPAP set up as outpatient. I suspect this is one of the triggers for his recurrent rapid Afib. (5) DVT prophylaxis: Status: Acute Assessment and plan: On therapeutic heparin gtt (6) Discharge planning issues: Status: Acute Assessment and plan: Full code Anticipate transfer for cardioversion tomorrow. NPO after midnight. Total Critical Care Time 35 minutes. Subjective Subjective Interval history since last seen: Mr Martinez states that he feels occasional palpitations, but no dizziness, chest pain, or nausea. Seen by cardiology - recommended cardioversion. HR 130-150. SBPs in the 80s overnight. Metoprolol given at 1:54. 6 am dose was held. Heparin gtt. OOB to sink - HR 150s, mild headache. Declines nicotine replacement. No beds at [facility] or [facility]. [facility] asked me to call back in am to see if a [id number] MARIA A/cardioversion can be organized. Exam Narrative Exam Narrative: General: Very pleasant middle-aged Obese male who appears comfortable on RA in bed, A&Ox3 HEENT: EOMI, MMM, large neck diameter Heart: irregularly irregular rhythm, tachycardic Lungs: CTAB Abdomen: soft, nontender, nondistended Extremities: no edema BLE's Objective Last Vital Signs Temp 37.1 C 07/15/21 08:12 Pulse 128 H 07/15/21 08:28 Resp 22 07/15/21 06:30 BP 82/61 L 07/15/21 06:02 Pulse Ox 95 07/15/21 06:30 Laboratory Results - last 24 hr 07/13/21 07/14/21 07/15/21 22:17 13:50 06:20 WBC RBC Hgb Hct MCV MCH MCHC RDW Plt Count MPV APTT 45.7 H D Sodium 138 Potassium 4.4 Chloride 103 Carbon Dioxide 26.2 Anion Gap 8.8 BUN 21 H Creatinine 1.3 Estimated GFR/1.73 m2 57.97 Glucose 105 Calcium 8.7 Magnesium 2.3 Digoxin 0.62 L SARS-CoV-2 (PCR) Negative 07/15/21 07/15/21 06:20 06:20 WBC 10.46 RBC 4.58 Hgb 13.0 L Hct 40.3 MCV 88.0 MCH 28.4 MCHC 32.3 RDW 12.0 Plt Count 232 MPV 10.6 APTT 41.9 H Sodium Potassium Chloride Carbon Dioxide Anion Gap BUN Creatinine Estimated GFR/1.73 m2 Glucose Calcium Magnesium Digoxin SARS-CoV-2 (PCR)
[2021-07-15] MEDS: Acetaminophen 325 MG TAB 650 MG PO ×3 (09:02→19:54)
[2021-07-15] MEDS: Colchicine 0.6 MG TAB PO ×3 (09:05→19:54)
--- NOTE | 2021-07-15 09:29 | CCONE_ITS ---
Date of service: 07/15/21 Time of Service: 09:29 Assessment and Plan Assessment and plan (1) Atrial fibrillation with rapid ventricular response: Status: Acute (2) Nonischemic cardiomyopathy: Status: Acute (3) Obstructive sleep apnea: Status: Chronic Assessment and plan: Patient has recurrent atrial fibrillation. He is status post ablation in 2017. He was not anticoagulated prior to presentation here and is now on intravenous heparin. He is going to need ongoing anticoagulation moving forward, but this does not need to be addressed acutely Heart rate has been difficult to control, limited by relative hypotension I would suggest that he have a MARIA A cardioversion as the best treatment. This will require transfer to a tertiary care facility, preferably [facility] as the patient is followed there on a regular basis. This was discussed with the patient and the hospitalist. Patient was in agreement Echocardiogram has been ordered here that may be technically difficult due to his heart rate. It will be reviewed when available Thank you for the opportunity to participate in the care of this patient History of Present Illness History of Present Illness Chief Complaint: Rapid heartbeat Narrative: This 50-year-old man presented to the hospital with an elevated heart rate. He has a complicated medical history which summarized below. He was in his usual state of health until about 48 hours prior to admission when he began to note that his heart was beating rapidly. He described a little more exertional shortness of breath than his baseline. He did not have chest pain no r was he dizzy or lightheaded. After about a day and a half he mentioned this racing heart to his , who brought him here to the hospital. He was found to be in atrial fibrillation with an uncontrolled rate. He has been heparinized. He has been started on rate control medication which has been limited by relative hypotension. He is on low-dose digoxin and metoprolol. Heart rate is a bit better at rest, in the 120s. It increases to 150 if he moves around . He has had no symptoms referable to his relatively low blood pressure Patient has a nonischemic cardiomyopathy diagnosed in 2016. He is followed by the advanced heart failure team at [facility], last visit February 21, 2021. Cardiac catheterization disclosed no coronary artery disease and he has been managed medically. His ejection fraction has varied, most recently 38%. He also has a history of paroxysmal atrial fibrillation for which he underwent ablation in 2017. He also had an atrial flutter ablation. He was treated for a while with Eliquis for anticoagulation but this subsequently was stopped as he had no recurrent dysrhythmia. He has hypertension, sleep apnea and hyperlipidemia EKG on presentation showed atrial fibrillation, rate 155, diffuse low voltage, left axis, poor R wave progression. Possible old anterior myocardial infarction Echocardiogram has not yet been repeated Consults Consult date: 07/15/21 Requesting physician: Elisha Richard Review of Systems Cardiovascular Cardiovascular: Denies chest pain, Reports rapid heart rate, Denies lightheadedness, Reports palpitations and Reports dyspnea on exertion Respiratory Respiratory: Reports dyspnea on exertion Endocrine Endocrine: Reports palpitations [facility] Active Problem List Atrial fibrillation with rapid ventricular response (Acute) Discharge planning issues (Acute) DVT prophylaxis (Acute) Hypotension (Acute) Rapid atrial fibrillation (Acute) Obstructive sleep apnea (Chronic) Chronic systolic CHF (congestive heart failure) (Acute) Heart failure (Acute) Atrial fibrillation (Chronic) Cubital tunnel syndrome, bilateral (Acute) Bilateral carpal tunnel syndrome (Acute) Follow up (Acute) Chest pain (Acute) S/P laparoscopic cholecystectomy (Acute ~06/28/18) Cholelithiasis with acute on chronic cholecystitis (Chronic) Cholecystitis (Acute) Medical History Ankle pain Anxiety with depression Back injury Cardiomyopathy Fatty liver H/O angiography Heel pain History of cardioversion HTN (hypertension) Kidney stones Surgical History H/O left knee surgery Hx of shoulder surgery S/P ablation of atrial fibrillation S/P ablation operation for arrhythmia S/P cardiac catheterization Family History Father Pancreatic cancer Hypertension Prostate cancer Mother Diabetes Social History Smoking/Tobacco Use Status: Current-Occasional Tobacco Type: smokeless tobacco Smoking risk assessment performed?: Yes Alcohol Intake: never Drug use: Never Substance use type: does not use Housing: house Number of Children: 2 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 Carotid pulsations are grossly normal without bruits Resp Auscultation: clear to auscultation bilaterally Cardio Other: Apical impulse is nonpalpable. Heart tones are distant tachycardic and mildly irregular no murmur or gallop appreciated Skin Other: Warm and dry Extrem Other: No peripheral edema Results Last Vital Signs Temp 37.1 C 07/15/21 08:12 Pulse 128 H 07/15/21 08:28 Resp 22 07/15/21 06:30 BP 82/61 L 07/15/21 06:02 Pulse Ox 95 07/15/21 06:30 Labs Result diagrams: 07/15/21 06:20 07/15/21 06:20 Labs: Laboratory Results - last 24 hr 07/13/21 07/14/21 07/15/21 22:17 13:50 06:20 WBC RBC Hgb Hct MCV MCH MCHC RDW Plt Count MPV APTT 45.7 H D Sodium 138 Potassium 4.4 Chloride 103 Carbon Dioxide 26.2 Anion Gap 8.8 BUN 21 H Creatinine 1.3 Estimated GFR/1.73 m2 57.97 Glucose 105 Calcium 8.7 Magnesium 2.3 Digoxin 0.62 L SARS-CoV-2 (PCR) Negative 07/15/21 07/15/21 06:20 06:20 WBC 10.46 RBC 4.58 Hgb 13.0 L Hct 40.3 MCV 88.0 MCH 28.4 MCHC 32.3 RDW 12.0 Plt Count 232 MPV 10.6 APTT 41.9 H Sodium Potassium Chloride Carbon Dioxide Anion Gap BUN Creatinine Estimated GFR/1.73 m2 Glucose Calcium Magnesium Digoxin SARS-CoV-2 (PCR)
--- NOTE | 2021-07-15 10:15 | RT.EKG_ITS ---
APPROVED REPORT Exam: Resting ECG Reason for Exam: rapid afib Patient Location: I HR:106 bpm ECG Measurements Heart Rate 106 AXIS [place] [id number] P [id number] QRSd 93 QRS -48 QT 324 T 77 QTc 431 Conclusion Atrial fibrillation...V-rate 84-176, irreg A-activity Left anterior fascicular block...axis(240,-40), init forces inf Anterior infarct, old...Q >40mS, abnormal ST-T, V2-V5
--- NOTE | 2021-07-15 10:59 | DI.US_ITS ---
APPROVED REPORT EXAM: Comprehensive 2D, Doppler, and color-flow Echocardiogram Patient Location: In-Patient Room/Bed: [id number] Chair Car Attendant: Lazara Diggs RDCS (AE) Indications: HEART FAILURE, ATRIAL FIBRILATION Other Information Study Quality: Adequate Conclusion Normal left ventricular wall thickness and chamber size. There is severe left ventricular systolic d ysfunction. EF is 25% with global hypokinesis The right ventricle appears grossly normal in size and systolic function The left atrium is moderately dilated. The right atrial size is normal Trileaflet aortic valve without stenosis or regurgitation Mildly thickened mitral leaflets with mild regurgitation Normal tricuspid valve with trace to mild regurgitation. Estimated right ventricular systolic pressu re is 21 mmHg Wall motion Left Ventricle The left ventricle is normal size. Left ventricular systolic function is moderate to severely decreas ed. There is normal left ventricular wall thickness. There is no ventricular septal defect visualized . LVEF is 25%. Right Ventricle The right ventricle is normal size. Right ventricular systolic function is grossly normal. The RVSP i s 21.1 mmHg. Atria Left atrium is moderately dilated. The right atrium size is normal. The interatrial septum is intact with no evidence for an atrial septal defect. Aortic Valve The aortic valve is normal in structure. Aortic valve is trileaflet. There is no aortic valvular sten osis. No aortic regurgitation is present. Mitral Valve Mitral valve leaflets are mildly thickened. No evidence of mitral valve stenosis. Mild mitral regurgi tation. Tricuspid Valve The tricuspid valve is normal in structure. There is no tricuspid valve stenosis. Trace to mild tricu spid regurgitation. Pulmonic Valve The pulmonary valve is normal in structure. There is no pulmonic valvular stenosis. There is no pulmo natalia valvular regurgitation. Great Vessels The aortic root is normal in size. The ascending aorta is normal in size. Aortic arch is not well vis ualized. IVC is normal in size and collapses >50% with inspiration. Pericardium There is no pericardial effusion. 2D Dimensions IVSD d PLAX 1.06 cm M: 0.6-1.2 LV Vol A2C d MOD 156.7 mL LVPW d PLAX 1.07 cm M: 0.6 - 1.2 LV Vol A4C d MOD 161.3 mL LVID d PLAX 5.77 cm M: 4.2 - 5.8 LA vol/ BSA A2C s A-L 56.9 mL/m2 LVDs 5.20 cm M: 2.5 - 4.0 LA vol/ BSA A4C s A-L 56.6 mL/m2 Ao Root d 2.84 cm M: 3.1 - 3.7 LA Vol/ BSA Biplane s A-L 57.6 mL/m2 RA Area A4C 19.82 cm2 LA Area A4C s MOD 31.72 cm2 RA Vol/ BSA A4C s A-L 27.5 mL/m2 LA Area A2C s MOD 31.35 cm2 Ao Asc Diam d 3.44 cm M: 2.6 - 3.4 LV EF A4C MOD 25.4 % LV EF Teichholz 20.5 % LV EF A2C MOD 25.6 % LVEF (Looney's) 24.86 % M: 52 - 72 LV EF Biplane MOD 24.9 % LV Volume 116.95 mL M: 62 - 150 SV 39.80 mL LV Volume Index 53.89 mL/m2 M: 34 - 74 SV Index 18.35 mL/m2 LV Vol Biplane MOD 160.1 mL FS 9.45 % M-Mode TAPSE 0.93 cm (M/F) >1.7 LV Diastology MV E Vmax 0.88 (0.4-1.3 m/s) Aortic Valve LVOT Area 3.10 cm2 AoV Area Vmax 1.88 cm2 LVOT Vmax 0.74 m/s AoV Area/ BSA (Vmax) 0.87 cm2/m2 LVOT Mean Trav. 0.48 m/s MAYRA Mean Trav. 1.64 cm2 LVOT Peak Grad 2.2 mmHg MAYRA Mean Trav. Index 0.76 cm2/m2 LVOT Mean Grad 1.1 mmHg LVOT VTI 0.116 m LVOT Diam s 1.95 cm AoV Vmax 1.22 m/s Velocity Ratio 0.60 AoV Mean Trav. 0.92 m/s AoV Peak Grad 6.0 mmHg LVOT SV 35.92 mL AoV Mean Grad 3.7 mmHg AoV VTI 0.204 m AoV Area VTI 1.76 cm2 AoV Area/ BSA (VTI) 0.81 cm/m2 Mitral Valve MV DT 178 (160-240 msec) MR Vmax 3.62 m/s MV PHT 52 msec MR VTI 0.858 m MV Area PHT 4.26 cm2 MR Peak Grad 52.4 mmHg MV VTI 0.257 m MR Mean Grad 34.6 mmHg MV VTI Annulus 0.268 m MV Area VTI 1.45 (4.0-6.0 cm2) Pulmonary Valve PV Vmax 0.98 (0.5-1.5 m/s) RVOT Peak Gr. 1.41 mmHg PV Peak Grad 3.8 mmHg RVOT Mean Gr. 0.65 mmHg PV Mean Grad 2.5 mmHg RVOT VTI 0.095 m PV VTI 0.170 m RVOT Vmax 0.59 m/s Tricuspid Valve TR Peak Grad 18.0 mmHg TR Vmax 2.13 m/s RA Pressure 3.00 mmHg RVSP (TR) 21.1 mmHg
[2021-07-15 12:56] LABS: Hemoglobin A1C 5.9 % (<5.7)
[2021-07-15 13:06] LABS: Calculated LDL 104 mg/dL (<100); Cholesterol 162 mg/dL (<200); HDL Cholesterol 35 mg/dL (40-60); Triglyceride 115 mg/dL (<150); Troponin I < 0.05 ng/mL (<0.06)
--- NOTE | 2021-07-15 13:32 | CMPROGNOTE_ITS ---
- If Service Date Differs Date of service: 07/15/21 Time of Service: 13:32 Care Management Progress Note S/O:Vitor was lying in bed visiting with his when CM met with him. He informed CM that he is playing the waiting game until a bed is available at [facility]. Vitor needs to have a cardioversion which can only be done at a tertiary care facility. No beds were available today but hopefully one will be available tomorrow. A: Vitor is a 50 year old man admitted on 07/13/21 with atrial fibrillation with RVR P:Vitor is waiting for a bed at [facility] for a MARIA A cardioversion. It is unlikely that there will be a bed available today, however the provider is exploring the possibility of a down and back procedure. When discharged, Vitor will return home with no new services and will follow up with his community providers. CM will continue to support Vitor and assess for ongoing discharge concerns.
[2021-07-16] VITALS (86 sets, daily range): BP systolic 77–124; BP diastolic 50–84; PULSE 51–168; RESP 0–40; TEMP 36.6–36.8; O2SAT 83–97
[2021-07-16] MEDS: Acetaminophen 325 MG TAB 650 MG PO ×4 (00:52→21:32)
[2021-07-16] MEDS: Metoprolol 25 MG TAB PO ×3 (05:56→21:33)
[2021-07-16 07:58] LABS: PTT Activated 35.6 sec (21.0-27.5)
[2021-07-16 08:28] LABS: Abs Immature Grans 0.03 10^3/uL (0.0-0.06); Absolute Basophil Count 0.02 10^3/uL (0.0-0.2); Absolute Eosinophil Count 0.07 10^3/uL (0.0-0.7); Absolute Lymphocyte Count 2.18 10^3/uL (1.2-3.4); Absolute Monocyte Count 1.11 10^3/uL (0.1-0.8); Basophils % 0.2; Eosinophils % 0.6; HCT 40.2 % (40.0-50.0); HGB 13.2 g/dL (13.5-17.5); Immature Grans % 0.3; Lymphocytes % 18.7; MCH 28.2 pg (27.0-33.0); MCHC 32.8 % (32.0-36.0); MCV 85.9 fL (80-95); MPV 10.6 fL (8.0-11.0); Monocytes % 9.5; Neutrophils % 70.7; Nucleated RBC 0 %; Platelet Count 231 10^3/uL (130-400); RBC 4.68 10^6/uL (4.36-5.78); WBC 11.67 10^3/uL (4.4-10.8)
[2021-07-16] MEDS: Colchicine 0.6 MG TAB PO ×4 (08:30→20:00)
[2021-07-16 08:32] LABS: Absolute Neutrophil Count 8.25 10^3/uL (1.2-6.7)
[2021-07-16 08:33] LABS: Anion Gap 7.2 mmol/L (3-11); BUN 16 mg/dL (7-18); CO2 27.8 mmol/L (21.0-32.0); CREATININE 1.1 mg/dL (0.70-1.30); Calcium 8.7 mg/dL (8.5-10.1); Chloride 102 mmol/L (98-107); Glucose 118 mg/dL (74-106); Magnesium 2.2 mg/dL (1.8-2.4); Sodium 137 mmol/L (136-145)
[2021-07-16] MEDS: Digoxin 0.125 MG TAB PO (08:33)
[2021-07-16] MEDS: Torsemide 20 MG TAB 40 MG PO (08:33)
[2021-07-16] MEDS: Aspirin E.C. 81 MG TABEC PO (08:33)
--- NOTE | 2021-07-16 09:35 | NUR.NOTE ---
0905: Pt's Ragini called and requested that the hospitalist talk to her about jace's [place] [facility] is frustrated that the transfer has not happened & quested what was taking so long. Explained that [facility] was full, that pt was accepted but no bed is available. Norma relayed to that [facility] was contacted as well. Dr. Richard was text paged with message to call pt's . Nursing Note:
[2021-07-16] MEDS: Metoprolol 5 MG/5 ML VIAL 2.5 MG IVP ×3 (09:46→12:17)
--- NOTE | 2021-07-16 09:46 | NUR.NOTE ---
0930: pt's telephoned again about 's transfer saying that she called [facility] herself and asked them why her has not been transferred. Pt relayed she was told that no one from [facility] has called today about bed availability.Restated and reassured pt's that Dr. Richard had called [facility] earlier this AM and that I will follow up with [facility]. 0935: Called [facility] patient bed placement number and talked with Nika who will look inot the matter.Nursing Note:
[2021-07-16] MEDS: oxyCODONE 5 MG TAB PO ×3 (09:50→20:00)
[2021-07-16] MEDS: Sacubitril/Valsartan 24 mg/26 mg TAB 1 EACH PO ×2 (10:18→20:00)
--- NOTE | 2021-07-16 10:55 | W.PM.DS.N ---
Date of service: 07/16/21 Time of Service: 11:00 DS: Diagnosis Discharge Diagnosis (1) Rapid atrial fibrillation: Status: Acute (2) Hypotension: Status: Acute (3) Chronic systolic CHF (congestive heart failure): Status: Acute Asessment and Plan: LVEF 25% (4) Nonischemic cardiomyopathy: Status: Chronic (5) Gout: Status: Acute (6) Obstructive sleep apnea: Status: Chronic (7) Obesity (BMI 30-39.9): (8) COVID-19 ruled out by laboratory testing: Status: Ruled-out Discharge Plan Disposition Patient Disposition: [facility] Condition: Improving Discharge Details Reason For Visit: Atrial Fibrillation,RVR Admit Date/Time: 07/13/21 23:37 Admit Provider: Kike Saldana Attending Provider: Kike Saldana Primary Care Provider: Obed Castro Hospital Course Hospital Course: Mr Martinez is a 50 year old male with PMHx of NICMO/chronic systolic CHF as well as h/o Afib previously unresponsive to medications and requiring cardioversion and ablation,not on anticoagulation as outpatient, as well as h/o untreated ROHAN and hypertension, who was admitted to [facility] ICU under the hospitalist service on 07/13/21 with rapid Afib. He did not tolerate cardizem bolus/drip, developing hypotension and requiring IV fluid boluses, so his rapid Afib has been treated with up-titration of his metoprolol and addition of digoxin. Despite this, the patient's heart rates vary between 120s-160s. His symptoms are primarily palpitations. He denies dizziness, chest pain, or shortness of breath and has not been in acute CHF. He is relatively hypotensive with the majority of SBPs in the 80s and 90s, limiting up-titration of beta blockers. The patient is being anticoagulated with heparin gtt. Echo done on this admission while in rapid Afib shows LVEF of 25%. He was evaluated by cardiology (Dr Moseley) who feels that the patient would benefit from cardioversion preceded by MARIA A, which our facility is unable to do at this time. The patient was denied in transfer to both [facility] and [facility] on 07/15/2021. He was accepted in transfer for early tomorrow morning by [facility] cardiology under the care of Dr Fox for above procedures. He is stable for transfer and agreeable to transfer. He is being made NPO after midnight but is being maintained on heparin gtt, per [facility] cardiology request. This admission has been complicated by development of a gout flare in R knee and ankle, which is being treated with colchicine and prn opioid pain medications, as we are abstaining for NSAIDs in setting of anticoagulation. Care for patient as well as attempts to arrange transfer and completion of his transfer summary on day of transfer took 120 minutes. For list of inpatient medications, please see MAR. The list of medications below reflects his outpatient prescriptions. Home Meds and New Rx's Prescriptions: No Action diclofenac sodium 75 mg tablet,delayed release (DR/EC) 75 mg PO Q12H PRNRF: 0 aspirin [Aspir-81] 81 MG tablet,delayed release (DR/EC) 81 mg PO QAM RF: 0 torsemide 20 mg Tablet 40 mg PO DAILY RF: 0 metoprolol succinate 25 mg Tablet Extended Release 24 Hr 25 mg PO DAILY RF: 0 acetaminophen [Tylenol] 325 mg Tablet 650 mg PO Q6H PRN PRN (Reason: fever or pain) Qty: 30 RF: 0 spironolactone 25 mg tablet 25 mg PO DAILY RF: 0 Entresto 24-26 mg tablet 1 tab PO BID RF: 0 Discharge Instructions Instructions: A-fib (Atrial Fibrillation) (DC), Cardioversion (DC), Transesophageal Echocardiogram (DC) Activity:: Activity as Tolerated Diet:: NPO after midnight Discharge Orders Discharge Orders: Discharge Order (Routine); Ordered 07/17/21 Ordered By: Elisha Richard DS: Summary Time Spent with Patient providing and/or coordinating discharge services: Greater than 30 minutes Status at Discharge Functional status at discharge: independent ambulation Overall status at discharge: patient is not back to baseline Mental Status: mental status grossly normal Speech and Movement: speech and movement normal Mood: congruent mood Affect: normal affect Exam Narrative Exam Narrative: General: Very pleasant middle-aged Obese male who appears comfortable on RA in bed, A&Ox3 HEENT: EOMI, MMM, large neck diameter Heart: irregularly irregular rhythm, tachycardic Lungs: CTAB Abdomen: soft, nontender, nondistended Extremities: no edema BLE's, exquisitely tender and warm R knee/ankle Psych Mental Status: mental status grossly normal Speech and Movement: speech and movement normal Mood: congruent mood Affect: normal affect DS: Data Vitals/I&O Vitals and I&O: Vital Signs Temperature 36.8 C 07/16/21 04:39 Temperature Source Tympanic 07/16/21 04:39 Pulse 97 H 07/16/21 10:18 Pulse 155 H 07/16/21 10:18 Respiratory Rate 23 07/16/21 10:18 Respiratory Effort Non-Labored 07/16/21 04:39 Respiratory Depth Normal 07/16/21 04:39 Respiratory Pattern Normal 07/16/21 04:39 Blood Pressure 100/69 07/16/21 10:18 Blood Pressure Mean 77 07/16/21 10:18 Blood Pressure Position Supine 07/16/21 04:39 Pulse Oximetry 96 07/16/21 10:18 Oxygen Delivery Method Room Air 07/16/21 04:39 Oxygen Flow Rate 0 07/16/21 04:39 Pain Level 0 07/16/21 06:57 Intake & Output 07/15/21 07/15/21 07/16/21 11:59 23:59 11:59 Intake Total 855.867 / 3173.734 2317.867 / 3173.734 396.4 / 396.4 Output Total 725 / 1425 700 / 1425 500 / 500 Balance 130.867 / 4478.363 8508.867 / 1748.734 -103.6 / -103.6 Weight 107.5 kg 107.5 kg Intake: IV 355.867 / 493.734 137.867 / 493.734 246.4 / 246.4 Oral 500 / 2680 2180 / 2680 150 / 150 Output: Urine 725 / 1425 700 / 1425 500 / 500 Other: Urine Color Yellow Dark Rosario Dark Rosario Urine Appearance Clear Clear Clear Urine Odor None None Normal Stool Occult Blood Negative Stool Size Large Large Stool Characteristics Soft Liquid Brown Voiding Methods Bedside Commode Urinal Urinal Data Completed and Pending Completed studies during hospitalization [Text1]: CXR: Streaky opacity in the medial aspect of the right lung base which may represent atelectasis but pneumonia cannot be excluded. Please correlate clinically. TTE 07/15/21: Normal left ventricular wall thickness and chamber size. There is severe left ventricular systolic dysfunction. EF is 25% with global hypokinesis The right ventricle appears grossly normal in size and systolic function The left atrium is moderately dilated. The right atrial size is normal Trileaflet aortic valve without stenosis or regurgitation Mildly thickened mitral leaflets with mild regurgitation Normal tricuspid valve with trace to mild regurgitation. Estimated right ventricular systolic pressure is 21 mmHg Labs on day of discharge: Labs from last 24 hours 07/16/21 07/16/21 07/16/21 08:05 08:05 06:25 WBC 11.67 H RBC 4.68 Hgb 13.2 L Hct 40.2 MCV 85.9 MCH 28.2 MCHC 32.8 RDW 12.0 Plt Count 231 MPV 10.6 Immature Gran % 0.3 Neutrophils % 70.7 Lymphocytes % 18.7 Monocytes % 9.5 Eosinophils % 0.6 Basophils % 0.2 Nucleated RBC % 0 Absolute Neutrophils 8.25 H Absolute Lymphocytes 2.18 Absolute Monocytes 1.11 H Absolute Eosinophils 0.07 Absolute Basophils 0.02 APTT 35.6 H Sodium 137 Potassium 4.0 Chloride 102 Carbon Dioxide 27.8 Anion Gap 7.2 BUN 16 Creatinine 1.1 Estimated GFR/1.73 m2 >= 60.00 Glucose 118 H Hemoglobin A1c Calcium 8.7 Magnesium 2.2 Troponin I Triglycerides Total Cholesterol LDL Cholesterol, Calc HDL Cholesterol 07/15/21 07/15/21 06:20 06:20 WBC RBC Hgb Hct MCV MCH MCHC RDW Plt Count MPV Immature Gran % Neutrophils % Lymphocytes % Monocytes % Eosinophils % Basophils % Nucleated RBC % Absolute Neutrophils Absolute Lymphocytes Absolute Monocytes Absolute Eosinophils Absolute Basophils APTT Sodium Potassium Chloride Carbon Dioxide Anion Gap BUN Creatinine Estimated GFR/1.73 m2 Glucose Hemoglobin A1c 5.9 H Calcium Magnesium Troponin I < 0.05 Triglycerides 115 Total Cholesterol 162 LDL Cholesterol, Calc 104 H HDL Cholesterol 35 L PFSH All Active Problems (Updated 07/16/21 @ 11:02 by Elisha Richard MD) Gout (Acute) Nonischemic cardiomyopathy (Chronic) Atrial fibrillation with rapid ventricular response (Acute) Discharge planning issues (Acute) DVT prophylaxis (Acute) Hypotension (Acute) Rapid atrial fibrillation (Acute) Obstructive sleep apnea (Chronic) Chronic systolic CHF (congestive heart failure) (Acute) Heart failure (Acute) Atrial fibrillation (Chronic) Cubital tunnel syndrome, bilateral (Acute) Bilateral carpal tunnel syndrome (Acute) Follow up (Acute) Chest pain (Acute) S/P laparoscopic cholecystectomy (Acute ~06/28/18) Cholelithiasis with acute on chronic cholecystitis (Chronic) Cholecystitis (Acute) Medical History (Updated 07/16/21 @ 11:02 by Elisha Richard MD) Ankle pain Anxiety with depression Back injury Cardiomyopathy Fatty liver H/O angiography Heel pain History of cardioversion HTN (hypertension) Kidney stones Obesity (BMI 30-39.9) Surgical History H/O left knee surgery Hx of shoulder surgery S/P ablation of atrial fibrillation S/P ablation operation for arrhythmia S/P cardiac catheterization Family History Father Pancreatic cancer Hypertension Prostate cancer Mother Diabetes Social History Smoking/Tobacco Use Status: Current-Occasional Tobacco Type: smokeless tobacco Smoking risk assessment performed?: Yes Alcohol Intake: never Drug use: Never Substance use type: does not use Housing: house Number of Children: 2 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
[2021-07-16] MEDS: HYDROmorphone 2 MG/ML VIAL 0.5 MG IVP ×4 (11:02→22:48)
--- NOTE | 2021-07-16 11:45 | RT.EKG_ITS ---
APPROVED REPORT Exam: Resting ECG Reason for Exam: chest pain Patient Location: I HR:124 bpm ECG Measurements Heart Rate 124 AXIS CO 184 P 244 QRSd 87 QRS -63 QT 291 T 72 QTc 430 Conclusion Atrial fibrillation with irregular rate...V-rate 93-183, variation>10% Left anterior fascicular block...axis(240,-40), init forces inf Anterior infarct, old...Q >40mS, abnormal ST-T, V2-V5 Nonspecific T abnormalities, lateral leads...T <-0.10mV, I aVL V5 V6
[2021-07-16] MEDS: Mylanta Suspension 30 ML CUP PO (12:16)
--- NOTE | 2021-07-16 12:48 | CMPROGNOTE_ITS ---
- If Service Date Differs Date of service: 07/16/21 Time of Service: 12:48 Care Management Progress Note S/O:Vitor was lying in bed when CM met with him. He informed CM that he is much happier today because there is a definite plan for him to go to [facility] tomorrow for a MARIA A and cardioversion. His heart rate remains elevated much of the time with rates as high as 150. He has also been experiencing what he describes as gout pain but he shared that that too is better and that he is more comfortable. A: Vitor is a 50 year old man admitted on 07/13/21 with atrial fibrillation with RVR P:Vitor is waiting for a bed at [facility] for a MARIA A and cardioversion. The provider has been told that he will be accepted in transfer tomorrow to have the procedure. When discharged, Vitor will return home with no new services and will follow up with his community providers. CM will continue to support Vitor and ass ess for ongoing discharge concerns.
[2021-07-16 13:11] LABS: Troponin I < 0.05 ng/mL (<0.06)
[2021-07-16] MEDS: Pantoprazole 40 MG TABCR PO (13:26)
[2021-07-16] MEDS: Normal Saline Flush 10 ML SYR IVP ×4 (13:50→22:48)
[2021-07-16 15:54] LABS: Troponin I < 0.05 ng/mL (<0.06)
[2021-07-16 16:02] LABS: PTT Activated 39.3 sec (21.0-27.5)
[2021-07-16] MEDS: Metoprolol 5 MG/5 ML VIAL IVP (17:26)
[2021-07-16] MEDS: predniSONE 20 MG TAB 40 MG PO (17:27)
[2021-07-17] VITALS (52 sets, daily range): BP systolic 66–105; BP diastolic 45–80; PULSE 58–136; RESP 6–35; TEMP 36.1–36.7; O2SAT 88–96
[2021-07-17 00:05] LABS: PTT Activated 49.6 sec (21.0-27.5)
[2021-07-17] MEDS: Normal Saline 250 ML 500 ML IV (00:53)
[2021-07-17] MEDS: oxyCODONE 5 MG TAB PO (03:30)
[2021-07-17 06:13] LABS: PTT Activated 51.7 sec (21.0-27.5)
[2021-07-17] MEDS: HYDROmorphone 2 MG/ML VIAL 0.5 MG IVP (06:57)
[2021-07-17 07:26] LABS: Anion Gap 9.3 mmol/L (3-11); BUN 29 mg/dL (7-18); CO2 26.7 mmol/L (21.0-32.0); CREATININE 1.5 mg/dL (0.70-1.30); Calcium 9.1 mg/dL (8.5-10.1); Chloride 98 mmol/L (98-107); Estimated GFR 49.15 (mL/min/1.73m2); Glucose 137 mg/dL (74-106); Magnesium 2.3 mg/dL (1.8-2.4); Potassium 4.2 mmol/L (3.5-5.1); Sodium 134 mmol/L (136-145)
[2021-07-17] MEDS: Aspirin E.C. 81 MG TABEC PO (08:01)
[2021-07-17] MEDS: Digoxin 0.125 MG TAB PO (08:01)
[2021-07-17] MEDS: predniSONE 20 MG TAB 40 MG PO (08:02)
[2021-07-17] MEDS: Pantoprazole 40 MG TABCR PO (08:02)
--- NOTE | 2021-07-17 09:06 | PDOC.CMPRO ---
- If Service Date Differs Date of service: 07/17/21 Time of Service: 08:19 Care Management Progress Note S/O:Vitor will transfer to [facility] [place] a MARIA A and cardioversion. His heart rate remains elevated much of the time with rates as high as 150. He has also been experiencing what he describes as gout pain but he shared that is better and he is much more comfortable. A: Vitor is a 50 year old man admitted on 07/13/21 with atrial fibrillation with RVR P: Vitor is waiting for a bed at [facility] for a MARIA A and cardioversion. The provider has been told that he will be accepted in transfer to have the procedure. He will transport via EMS coordinated by Nursing Workforce Development Assistant.
--- NOTE | 2021-07-17 11:22 | NUR.NOTE ---
to call patient's to give her an update.Nursing Note:
[2021-07-17] MEDS: Metoprolol 5 MG/5 ML VIAL IVP (11:38)
--- NOTE | 2021-07-17 11:46 | NUR.NOTE ---
Patient's heart rate in the 140's. Patient is given 5mg of Metoprolol IVP. Nursing Note:
[2021-07-17] MEDS: Colchicine 0.6 MG TAB PO (11:52)
[2021-07-17] MEDS: Acetaminophen 325 MG TAB 650 MG PO (13:16)
--- NOTE | 2021-07-17 13:26 | NUR.NOTE ---
Patient walks with a significant limp because of right knee and ankle pain from gout.Nursing Note:
--- NOTE | 2021-07-17 13:58 | NUR.NOTE ---
Report given to GOLDEN Rhodes [facility]Nursing Note:
== END 2021-07-17 13:46 | disposition short-term general hospital (02) | DRG 309 ==
LOC: ER 07-14 00:54 → ICU 07-14 00:57
PROVIDERS: Family Medicine; Internal Medicine; Admitting Provider Family Medicine; Emergency Provider Student in an Organized Health Care Education/Training Program; PCP Nurse Practitioner; Visit Provider Family Medicine
DX: I48.91 Unspecified atrial fibrillation (principal); I50.22 Chronic systolic (congestive) heart failure; E78.00 Pure hypercholesterolemia, unspecified; F41.8 Other specified anxiety disorders; K76.0 Fatty (change of) liver, not elsewhere classified; Z87.442 Personal history of urinary calculi; F17.290 Nicotine dependence, other tobacco product, uncomplicated; Z20.822 Contact with and (suspected) exposure to COVID-19; I95.9 Hypotension, unspecified; I11.0 Hypertensive heart disease with heart failure; G47.33 Obstructive sleep apnea (adult) (pediatric); I42.8 Other cardiomyopathies; E66.9 Obesity, unspecified; R07.89 Other chest pain; Z68.34 Body mass index [BMI] 34.0-34.9, adult
CPT/HCPCS: 36415; 80048; 80053; 80061; 85027; 87635; 93005; 96361; 96365; 96367; 96368; 96375; 99291; 71045; 80162; 83036; 83735; 83880; 84439; 84443; 84484; 85025; 85610; 85730; 93010; 93306; 99223; 99239; J1160; J7512

== ENCOUNTER 2021-10-13 04:27 | Outpatient (CLI) | payer BC, SELFPAY ==
[2021-10-13 08:46] LABS: Anion Gap 5.9 mmol/L (3-11); BUN 19 mg/dL (7-18); CO2 29.1 mmol/L (21.0-32.0); CREATININE 1.4 mg/dL (0.70-1.30); Calcium 8.8 mg/dL (8.5-10.1); Chloride 101 mmol/L (98-107); Estimated GFR 53.22 (mL/min/1.73m2); Glucose 99 mg/dL (74-106); Sodium 136 mmol/L (136-145)
== END 2021-10-13 04:28 | disposition home or self-care (01) ==
LOC: LBO 04:27
PROVIDERS: PCP Nurse Practitioner; Visit Provider Physician Assistant
DX: I48.91 Unspecified atrial fibrillation (principal)
CPT/HCPCS: 36415; 80048

== ENCOUNTER 2022-09-29 12:39 | Outpatient (CLI) | payer BC, SELFPAY ==
[2022-09-29 10:00] LABS: Anion Gap 11.4 mmol/L (3-11); BUN 45 mg/dL (7-18); CO2 25.6 mmol/L (21.0-32.0); CREATININE 2.1 mg/dL (0.70-1.30); Calcium 9.3 mg/dL (8.5-10.1); Chloride 101 mmol/L (98-107); Estimated GFR 36.95 (mL/min/1.73m2); Glucose 107 mg/dL (74-106); NT-proBNP 954 pg/mL (<300); Potassium 4.4 mmol/L (3.5-5.1); Sodium 138 mmol/L (136-145)
== END 2022-09-29 12:40 | disposition home or self-care (01) ==
LOC: LBO 12:40
PROVIDERS: PCP Nurse Practitioner; Visit Provider Physician Assistant
DX: I50.22 Chronic systolic (congestive) heart failure (principal)
CPT/HCPCS: 36415; 80048; 83880

== ENCOUNTER 2023-01-24 13:37 | Outpatient (CLI) | payer BC, SELFPAY ==
[2023-01-24 14:51] LABS: Anion Gap 9.4 mmol/L (3-11); BUN 46 mg/dL (7-18); CO2 28.6 mmol/L (21.0-32.0); CREATININE 1.8 mg/dL (0.70-1.30); Calcium 9.2 mg/dL (8.5-10.1); Chloride 101 mmol/L (98-107); Estimated GFR 44.18 (mL/min/1.73m2); Glucose 100 mg/dL (74-106); Potassium 5.1 mmol/L (3.5-5.1); Sodium 139 mmol/L (136-145)
== END 2023-01-24 13:38 | disposition home or self-care (01) ==
LOC: LBO 13:38
PROVIDERS: PCP Nurse Practitioner; Visit Provider Physician Assistant
DX: I50.22 Chronic systolic (congestive) heart failure (principal)
CPT/HCPCS: 36415; 80048

== ENCOUNTER 2023-04-04 09:59 | Outpatient (CLI) | payer BC, SELFPAY ==
[2023-04-04 09:08] LABS: Anion Gap 9.8 mmol/L (3-11); BUN 65 mg/dL (7-18); CO2 29.2 mmol/L (21.0-32.0); CREATININE 2.7 mg/dL (0.70-1.30); Calcium 9.5 mg/dL (8.5-10.1); Chloride 93 mmol/L (98-107); Estimated GFR 27.16 (mL/min/1.73m2); Glucose 185 mg/dL (74-106); NT-proBNP 3037 pg/mL (<300); Potassium 3.4 mmol/L (3.5-5.1); Sodium 132 mmol/L (136-145)
== END 2023-04-04 10:00 | disposition home or self-care (01) ==
PROVIDERS: PCP Nurse Practitioner; Visit Provider Physician Assistant
DX: I50.20 Unspecified systolic (congestive) heart failure (principal)
CPT/HCPCS: 36415; 80048; 83880

== ENCOUNTER 2023-06-19 09:42 | Outpatient (REF) | payer BC, SELFPAY ==
--- OUTSIDE RECORDS SUMMARY | 2023-06-19 10:00 | XMS_ITS | Patient Health Record ---
Author Name Unknown [facility] Address [address] [place] [address] Care Team Providers Care Duplicator Punch Operator Name Role Phone Matthew MARINELLISergey Primary Care Provid er [phone] ALLERGIES Allergen (clinical drug ingredient) Drug/Non Drug Allergy documented on EMR Reaction Allergy Type Onset Date Status amoxicillin Amoxicillin rash Drug Allergy Act mary grace REASON FOR REFERRAL No Information MEDICATIONS Medication SIG (Take, Route, Frequency, Duration) Notes Start Date End Date Status Metoprolol Succinate ER 25 mg take 1 tablet by mouth orally once a day Active Montelukast Sodium 10 MG 1 tablet Orally Once a day for nasal congestion 10/30/2018 Active Atorvastatin Calcium 40 mg 1 tab(s) oral ly once a day Active Diclofenac sodium 75 mg 1 tab(s) orally q12h prn for pain for 90 days 03/15/2019 Active Spironolactone 25 mg 1/2 tab orally daily Active Scopolamine 1 mg/3days 1 patch to skin a s needed Transdermal q72 hours for 30 day(s) 10/30/2018 Active Colchicine 0.6 mg 2 tab(s) now, then o ne tab one hour later orally as directed, max 3 tabs/daily for 1 days 05/04/2020 Active Aspirin Low Dose 81 mg 1 tab(s) orally o nce a day Active Torsemide 20 mg 1 tab(s) orally once a day 11/03/2016 Active Losartan Potassium 25 mg 1 tab(s) orally once a day Active IMMUNIZATIONS Vaccine Route Administration Date Status Comme nts -Influenza FLUZONE NON STATE ID ages 18-64 Unknown 05/11/2012 Administered -Influenza,split,preser.fr ee,>18yr (NOT state supplied) Unknown 08/12/2010 Administered Influenza FLUBLOK QUAD NONSTATE IM Intramuscular 08/12/2019 Administered Influenza HISTORY Unknown 03/18/2016 Administered Influenza HISTORY Unknown 04/16/2018 Administered Tdap adacel or Boostrix NONSTATE Adults IM Intramuscular 08/26/2011 Administered SOCIAL HISTORY Tobacco Use: Social History Observation Description Date Details (start date - stop date) Never Smoker NA - NA Sex Assigned At : Social History Observation Description Sex Assigned At Unknown SMOKING Question Answer Notes Are you a: nonsmoker DRUG SCREENING Question Answer Notes Have you used drugs other th an those for medical reasons in the past 12 months? No PROBLEMS Problem Type ICD Code Onset Dates Problem Status W/U Status Risk SNOMED Code Notes Problem half-way use of concetta g (Z79.899) Active confirmed 290057296 Problem Cardiomyopathy (I42.9) Active confirmed 36159722 Problem Paroxysmal atrial fibrillation (I48.0) Active confirmed 864375257 Problem Benign essential hypertension (I10) Active confirmed 7632111 Problem Environmental and seasonal allergies (J30.89) Active confirmed 684451146 Problem Mixed hypercholesterolemia and hypertriglyceridemia (E78.2) Active confirmed 338487162 Problem Type II or unspecifi ed type diabetes mellitus without mention of complication, not stated as uncontrolled (E11.9) Active confirmed 93830849 PLAN OF TREATMENT No Information Insurance Providers Payer Name Payer Address Payer Phone Subscriber Number Group Number Insured Name Patient Relationship to Insured Coverage Start Date Coverage End Date [employer] [facility] [address] [place], [place] [id number] ^[place] [id number] KWASI YBARRA Self - patient is the insured [place] [address] KWASI YBARRA Self - patient is the insured MEDICATIONS ADMINISTERED Medication Instructions Date of Administration Dosage Notes triamcinalone (kenalog) per 40 mg 06/03/2016 40 mg RT [place] triamcinalone (kenalog) per 40 mg 06/05/2017 40 mg RT [facility]OW MEDICAL (GENERAL) HISTORY Medical History History ICD Code Back injury, slipped on ice ankle and heel pain Stress Echo 05/2011 - no ischemia [facility] 01/2016: Acute systolic heart failur e secondary to Cardiomyopathy ECHO 10/11/2016 EF 17%, CHF, REPEATED : EF 21% Situational depression F43.21 Situational depression Cubital tunnel syndrome, bilateral G56.2 3 Surgical History Surgery Date(Month/Year) Left shoulder bilateral knee Left Knee surgery 11/17 Cardiac [place] [place] Cardioversion one, synchroni zed shock of 100 joules, successful jew of NSR 01/2016 Cardiac Catherization Afib ablation 10/26/16 Carpal tunnel release 01/29/2020 Hospitalization History Reason Date(Month/Year) shoulder surgery kidney stones [facility] Systolic Congestive Heart Brian lure 01/06/16-01/09/16 A-Fib with RVR, cardiomyopathy 01/11/16-05/22 Acute on Chronic systolic heart failure[place] [facility] [place]/11/16-10/19/16 [facility]Persistent Afib, ablation 10/26/16-
[2023-06-19 15:16] LABS: ESR 14 mm/hr (0-20)
[2023-06-19 15:34] LABS: ALT 64 U/L (16-63); AST 13 U/L (15-37); Alkaline Phosphatase 90 U/L (46-116); Anion Gap 8.4 mmol/L (3-11); BUN 73 mg/dL (7-18); Bilirubin, Direct 0.2 mg/dL (0.0-0.2); Bilirubin, Total 0.4 mg/dL (0.2-1.0); C-Reactive Protein 0.87 mg/dL (0.0-0.3); CO2 28.6 mmol/L (21.0-32.0); CREATININE 2.3 mg/dL (0.70-1.30); Calcium 8.6 mg/dL (8.5-10.1); Chloride 100 mmol/L (98-107); Estimated GFR 32.92 (mL/min/1.73m2); Glucose 255 mg/dL (74-106); Potassium 4.4 mmol/L (3.5-5.1); Sodium 137 mmol/L (136-145); Total Protein 5.6 g/dL (6.4-8.2)
== END 2023-06-19 09:43 | disposition home or self-care (01) ==
LOC: LBN 09:42
PROVIDERS: PCP Nurse Practitioner; Visit Provider Internal Medicine Advanced Heart Failure and Transplant Cardiology
DX: I50.9 Heart failure, unspecified (principal); I42.5 Other restrictive cardiomyopathy
CPT/HCPCS: 80053; 80076; 85652; 80197; 82248; 86140

== ENCOUNTER 2023-06-27 15:57 | Outpatient (REF) | payer BC, SELFPAY ==
--- OUTSIDE RECORDS SUMMARY | 2023-06-27 16:11 | XMS_ITS | Patient Health Record ---
Author Name Unknown [facility] Address [address] [place] [address] Care Team Providers Care Master Motorcycle Technician Name Role Phone Matthew MARINELLISergey Primary Care Provid er [phone] ALLERGIES Allergen (clinical drug ingredient) Drug/Non Drug [...] Vaccine Route Administration Date Status Comme nts Tdap adacel or Boostrix NONSTATE Adults IM Intramuscular 08/26/2011 Administered Influenza HISTORY Unknown 03/18/2016 Administered Influenza HISTORY Unknown 04/16/2018 Administered Influenza FLUBLOK QUAD NONSTATE IM Intramuscular 08/12/2019 Administered -Influenza,split,preser.fr ee,>18yr (NOT state supplied) Unknown 08/12/2010 Administered -Influenza FLUZONE NON STATE ID ages 18-64 Unknown 05/11/2012 Administered SOCIAL HISTORY Tobacco Use: Social History [...] W/U Status Risk SNOMED Code Notes Problem residential use of concetta g (Z79.899) Active confirmed 387434632 Problem Cardiomyopathy (I42.9) Active confirmed 02888800 Problem Paroxysmal atrial fibrillation (I48.0) Active confirmed 436464976 Problem Benign essential hypertension (I10) Active confirmed 4476274 Problem Environmental and seasonal allergies (J30.89) Active confirmed 336829663 Problem Mixed hypercholesterolemia and hypertriglyceridemia (E78.2) Active confirmed 672954404 Problem Type II or unspecifi ed type diabetes mellitus without mention of complication, not stated as uncontrolled (E11.9) Active confirmed [id number] PLAN OF TREATMENT No Information Insurance Providers Payer Name Payer Address Payer Phone Subscriber Number Group Number Insured Name Patient Relationship to Insured Coverage Start Date Coverage End Date [employer] [facility] [address] [place], [place] [id number] [place] [id number] KWASI YBARRA Self - patient is the insured [place] [address] KWASI YBARRA Self - patient is the [...] Left Knee surgery 11/17 Cardiac Catherization-Coronary Angiograp -[facility] [place] 01/2016 Cardioversion one, synchroni zed shock of 100 joules, successful restorationism of NSR 01/2016 Cardiac Catherization Afib ablation 10/26/16 Carpal tunnel release 01/29/2020 Hospitalization History Reason Date(Month/Year) shoulder surgery kidney stones [facility] [place]-Acute Systolic Congestive Heart Brian lure 01/06/16-01/09/16 A-Fib with RVR, cardiomyopathy 01/11/16-05/22 Acute on Chronic systolic heart failure- [facility] [place] 10/11/16-10/19/16 [facility] [place]-Persistent Afib, ablation 10/26/16-
[2023-06-27 17:00] LABS: ALT 29 U/L (16-63); AST 11 U/L (15-37); Albumin 3.4 g/dL (3.4-5.0); Alkaline Phosphatase 69 U/L (46-116); BUN 64 mg/dL (7-18); Bilirubin, Total 0.4 mg/dL (0.2-1.0); CREATININE 2.2 mg/dL (0.70-1.30); Calcium 8.7 mg/dL (8.5-10.1); Chloride 99 mmol/L (98-107); Estimated GFR 34.72 (mL/min/1.73m2); Glucose 169 mg/dL (74-106); Magnesium 1.8 mg/dL (1.8-2.4); NT-proBNP 2412 pg/mL (<300); Potassium 4.2 mmol/L (3.5-5.1); Sodium 134 mmol/L (136-145); Total Protein 5.9 g/dL (6.4-8.2)
== END 2023-06-27 15:58 | disposition home or self-care (01) ==
LOC: LBN 15:57
PROVIDERS: PCP Nurse Practitioner; Visit Provider Internal Medicine
DX: I42.5 Other restrictive cardiomyopathy (principal); I82.403 Acute embolism and thrombosis of unspecified deep veins of lower extremity, bilateral; I50.20 Unspecified systolic (congestive) heart failure
CPT/HCPCS: 80053; 83735; 83880

== ENCOUNTER 2023-07-01 10:10 | Outpatient (REF) | payer BC, SELFPAY ==
--- OUTSIDE RECORDS SUMMARY | 2023-07-01 10:25 | XMS_ITS | Patient Health Record ---
Author Name Unknown [facility] Address [address] [place] [address] Care Team Providers Care Enrichment Assistant Name Role Phone Matthew MARINELLISeregy Primary Care Provid er [phone] ALLERGIES Allergen (clinical drug ingredient) Drug/Non Drug [...] W/U Status Risk SNOMED Code Notes Problem long-term use of concetta g (Z79.899) Active confirmed 162565624 Problem Cardiomyopathy (I42.9) Active confirmed 88935016 Problem Paroxysmal atrial fibrillation (I48.0) Active confirmed 147064161 Problem Benign essential hypertension (I10) Active confirmed 3223813 Problem Environmental and seasonal allergies (J30.89) Active confirmed 629373485 Problem Mixed hypercholesterolemia and hypertriglyceridemia (E78.2) Active confirmed 527361001 Problem Type II or unspecifi ed type diabetes mellitus without mention of complication, not stated as uncontrolled (E11.9) Active confirmed [id number] PLAN OF TREATMENT No Information Insurance Providers Payer Name Payer Address Payer Phone Subscriber Number Group Number Insured Name Patient Relationship to Insured Coverage Start Date Coverage End Date [employer] [facility] [address] [place], [place] [id number] [place] [id number] KWASI YBARRA Self - patient is the insured S[place] [address] KWASI YBARRA Self - patient is the [...] Left Knee surgery 11/17 Cardiac Catherization-Coronary Angiograp -[facility] [place] 01/2016 Cardioversion one, synchroni zed shock of 100 joules, successful baptist of NSR 01/2016 Cardiac Catherization Afib ablation 10/26/16 Carpal tunnel release 01/29/2020 Hospitalization History Reason Date(Month/Year) shoulder surgery kidney stones [facility] [place]-Acute Systolic Congestive Heart Brian lure 01/06/16-01/09/16 A-Fib with RVR, cardiomyopathy 01/11/16-05/22 Acute on Chronic systolic heart failure- [facility] [place] 10/11/16-10/19/16 [facility] [place]-Persistent Afib, ablation 10/26/16-
[2023-07-01 10:36] LABS: Absolute Basophil Count 0.03 10^3/uL (0.0-0.2); Absolute Eosinophil Count 0.06 10^3/uL (0.0-0.7); Absolute Lymphocyte Count 1.03 10^3/uL (1.2-3.4); Absolute Monocyte Count 0.43 10^3/uL (0.1-0.8); Absolute Neutrophil Count 7.58 10^3/uL (1.2-6.7); Basophils % 0.3; Eosinophils % 0.6; HCT 30.4 % (40.0-50.0); HGB 9.4 g/dL (13.5-17.5); Immature Grans % 2.1; MCH 30.4 pg (27.0-33.0); MCHC 30.9 % (32.0-36.0); MCV 98 fL (80-95); MPV 9.5 fL (8.0-11.0); Monocytes % 4.6; Neutrophils % 81.4; Nucleated RBC 0.2 % (0.0-0.3); Platelet Count 189 10^3/uL (130-400); RBC 3.09 10^6/uL (4.36-5.78); RDW 18.8 % (11.8-14.1); RDW-SD 66.2 fL; WBC 9.33 10^3/uL (4.4-10.8)
[2023-07-01 10:39] LABS: ESR 6 mm/hr (0-20)
[2023-07-01 10:51] LABS: ALT 18 U/L (16-63); AST 11 U/L (15-37); Albumin 3.4 g/dL (3.4-5.0); Alkaline Phosphatase 62 U/L (46-116); Anion Gap 9.7 mmol/L (3-11); BUN 60 mg/dL (7-18); Bilirubin, Direct 0.3 mg/dL (0.0-0.2); Bilirubin, Total 0.5 mg/dL (0.2-1.0); CO2 25.3 mmol/L (21.0-32.0); CREATININE 2.6 mg/dL (0.70-1.30); Calcium 8.3 mg/dL (8.5-10.1); Chloride 102 mmol/L (98-107); Estimated GFR 28.42 (mL/min/1.73m2); Glucose 211 mg/dL (74-106); Potassium 3.8 mmol/L (3.5-5.1); Sodium 137 mmol/L (136-145); Total Protein 5.7 g/dL (6.4-8.2)
[2023-07-04 10:32] LABS: Tacrolimus 20.6 ng/mL (See Note)
== END 2023-07-01 10:11 | disposition home or self-care (01) ==
LOC: LBN 10:10
PROVIDERS: PCP Nurse Practitioner; Visit Provider Internal Medicine
DX: K92.2 Gastrointestinal hemorrhage, unspecified (principal); I50.20 Unspecified systolic (congestive) heart failure; I82.403 Acute embolism and thrombosis of unspecified deep veins of lower extremity, bilateral; Z48.812 Encounter for surgical aftercare following surgery on the circulatory system; Z94.1 Heart transplant status
CPT/HCPCS: 80053; 85652; 80197; 82248; 85025; 86140

== ENCOUNTER 2023-07-10 13:31 | Outpatient (CLI) | payer BC, SELFPAY ==
[2023-07-10 09:34] LABS: Abs Immature Grans 0.16 10^3/uL (0.0-0.06); Absolute Basophil Count 0.03 10^3/uL (0.0-0.2); Absolute Eosinophil Count 0.01 10^3/uL (0.0-0.7); Absolute Lymphocyte Count 0.56 10^3/uL (1.2-3.4); Absolute Neutrophil Count 9.39 10^3/uL (1.2-6.7); Basophils % 0.3; Eosinophils % 0.1; HCT 32.4 % (40.0-50.0); HGB 10.2 g/dL (13.5-17.5); Immature Grans % 1.5; Lymphocytes % 5.4; MCH 30.9 pg (27.0-33.0); MCHC 31.5 % (32.0-36.0); MCV 98 fL (80-95); MPV 8.9 fL (8.0-11.0); Monocytes % 2.9; Neutrophils % 89.8; Platelet Count 175 10^3/uL (130-400); RDW 17.9 % (11.8-14.1); RDW-SD 63.9 fL; WBC 10.45 10^3/uL (4.4-10.8)
[2023-07-10 10:02] LABS: ALT 24 U/L (16-63); AST 14 U/L (15-37); Alkaline Phosphatase 56 U/L (46-116); BUN 54 mg/dL (7-18); Bilirubin, Direct 0.2 mg/dL (0.0-0.2); Bilirubin, Total 0.6 mg/dL (0.2-1.0); CREATININE 2.3 mg/dL (0.70-1.30); Calcium 9.1 mg/dL (8.5-10.1); Chloride 101 mmol/L (98-107); Estimated GFR 32.92 (mL/min/1.73m2); Glucose 124 mg/dL (74-106); Potassium 4.3 mmol/L (3.5-5.1); Sodium 138 mmol/L (136-145); Total Protein 6.5 g/dL (6.4-8.2)
[2023-07-12 13:41] LABS: HCV RNA Qualitative Undetected (Undetected)
[2023-07-13 11:27] LABS: HIV 1 RNA Qualitative Undetected copies/mL (Undetected)
[2023-07-13 13:07] LABS: Tacrolimus 6.8 ng/mL (See Note)
[2023-07-13 15:15] LABS: HBV DNA Detect/Quant, PCR Undetected IU/mL (Undetected)
== END 2023-07-10 13:32 | disposition home or self-care (01) ==
LOC: LBO 13:32
PROVIDERS: PCP Nurse Practitioner; Visit Provider Internal Medicine
DX: Z48.812 Encounter for surgical aftercare following surgery on the circulatory system (principal); I50.20 Unspecified systolic (congestive) heart failure; Z94.1 Heart transplant status; I82.403 Acute embolism and thrombosis of unspecified deep veins of lower extremity, bilateral; K92.2 Gastrointestinal hemorrhage, unspecified
CPT/HCPCS: 36415; 80053; 80076; 87517; 87522; 87536; 80197; 85025

== ENCOUNTER 2023-07-26 10:33 | Outpatient (CLI) | payer BC, SELFPAY ==
[2023-07-26 10:19] LABS: Abs Immature Grans 0.49 10^3/uL (0.0-0.06); HCT 32.6 % (40.0-50.0); HGB 10.5 g/dL (13.5-17.5); MCH 31.2 pg (27.0-33.0); MCHC 32.2 % (32.0-36.0); MCV 97 fL (80-95); MPV 9.4 fL (8.0-11.0); Platelet Count 192 10^3/uL (130-400); RBC 3.37 10^6/uL (4.36-5.78); WBC 7.76 10^3/uL (4.4-10.8)
[2023-07-26 10:34] LABS: Absolute Lymphocyte Count 0.54 10^3/uL (1.2-3.4); Absolute Monocyte Count 0.47 10^3/uL (0.1-0.8); Absolute Neutrophil Count 6.67 10^3/uL (1.2-6.7); Atypical Lymphocytes % 0; Bands % 0; Metamyelocytes % 1
[2023-07-26 10:35] LABS: Diff Comment Manual Differential; RBC Morphology Normal
[2023-07-26 10:52] LABS: ALT 44 U/L (16-63); AST 17 U/L (15-37); Albumin 4.1 g/dL (3.4-5.0); Alkaline Phosphatase 46 U/L (46-116); Anion Gap 12.9 mmol/L (3-11); Bilirubin, Total 0.5 mg/dL (0.2-1.0); CO2 27.1 mmol/L (21.0-32.0); CREATININE 2.9 mg/dL (0.70-1.30); Calcium 9.1 mg/dL (8.5-10.1); Chloride 97 mmol/L (98-107); Estimated GFR 24.93 (mL/min/1.73m2); Glucose 169 mg/dL (74-106); Magnesium 1.8 mg/dL (1.8-2.4); PHOSPHORUS 4.8 mg/dL (2.6-4.7); Potassium 3.7 mmol/L (3.5-5.1); Sodium 137 mmol/L (136-145); Total Protein 6.6 g/dL (6.4-8.2)
[2023-07-26 11:07] LABS: BUN 87 mg/dL (7-18)
== END 2023-07-26 10:34 | disposition home or self-care (01) ==
LOC: LBO 10:34
PROVIDERS: PCP Nurse Practitioner; Visit Provider Internal Medicine
DX: Z94.1 Heart transplant status (principal)
CPT/HCPCS: 36415; 80053; 80197; 83735; 84100; 85025

== ENCOUNTER 2023-08-03 11:30 | Outpatient (RCR) | payer BC, SELFPAY | END 2023-08-06 23:59 | disposition home or self-care (01) | LOC: CR 11:30 | PROVIDERS: PCP Nurse Practitioner; Visit Provider Internal Medicine Interventional Cardiology | DX: Z94.1 Heart transplant status (principal) ==

== ENCOUNTER 2023-08-09 19:03 | Outpatient (CLI) | payer BC, SELFPAY ==
[2023-08-09 10:21] LABS: Anion Gap 10.6 mmol/L (3-11); CO2 26.4 mmol/L (21.0-32.0); CREATININE 2.9 mg/dL (0.70-1.30); Calcium 9.4 mg/dL (8.5-10.1); Chloride 101 mmol/L (98-107); Estimated GFR 24.93 (mL/min/1.73m2); Glucose 201 mg/dL (74-106); Potassium 3.7 mmol/L (3.5-5.1); Sodium 138 mmol/L (136-145)
[2023-08-09 10:41] LABS: BUN 88 mg/dL (7-18)
== END 2023-08-09 19:04 | disposition home or self-care (01) ==
LOC: LBO 19:03
PROVIDERS: PCP Nurse Practitioner; Visit Provider Nurse Practitioner
DX: N18.4 Chronic kidney disease, stage 4 (severe) (principal)
CPT/HCPCS: 36415; 80048

== ENCOUNTER 2023-08-14 13:55 | Outpatient (CLI) | payer BC, SELFPAY ==
[2023-08-14 09:23] LABS: Absolute Basophil Count 0.04 10^3/uL (0.0-0.2); Absolute Eosinophil Count 0.08 10^3/uL (0.0-0.7); Absolute Lymphocyte Count 1.47 10^3/uL (1.2-3.4); Absolute Monocyte Count 0.63 10^3/uL (0.1-0.8); Absolute Neutrophil Count 3.79 10^3/uL (1.2-6.7); Basophils % 0.6; Eosinophils % 1.3; HCT 32.8 % (40.0-50.0); HGB 10.7 g/dL (13.5-17.5); Immature Grans % 4.8; Lymphocytes % 23.3; MCH 31.1 pg (27.0-33.0); MCHC 32.6 % (32.0-36.0); MCV 95 fL (80-95); Platelet Count 173 10^3/uL (130-400); RBC 3.44 10^6/uL (4.36-5.78); RDW 14.7 % (11.8-14.1); RDW-SD 51.7 fL; WBC 6.31 10^3/uL (4.4-10.8)
[2023-08-14 09:52] LABS: ALT 34 U/L (16-63); AST 24 U/L (15-37); Albumin 3.9 g/dL (3.4-5.0); Alkaline Phosphatase 48 U/L (46-116); Anion Gap 13.1 mmol/L (3-11); Bilirubin, Direct 0.2 mg/dL (0.0-0.2); Bilirubin, Total 0.4 mg/dL (0.2-1.0); CO2 22.9 mmol/L (21.0-32.0); CREATININE 3.3 mg/dL (0.70-1.30); Calcium 9.1 mg/dL (8.5-10.1); Chloride 102 mmol/L (98-107); Estimated GFR 21.35 (mL/min/1.73m2); Glucose 171 mg/dL (74-106); Magnesium 1.7 mg/dL (1.8-2.4); PHOSPHORUS 4.8 mg/dL (2.6-4.7); Potassium 3.6 mmol/L (3.5-5.1); Sodium 138 mmol/L (136-145); Total Protein 6.4 g/dL (6.4-8.2)
[2023-08-14 10:13] LABS: BUN 91 mg/dL (7-18)
[2023-08-15 10:57] LABS: Tacrolimus 9.2 ng/mL (See Note)
== END 2023-08-14 13:56 | disposition home or self-care (01) ==
LOC: LBO 13:55
PROVIDERS: PCP Nurse Practitioner; Visit Provider Internal Medicine
DX: Z94.1 Heart transplant status (principal)
CPT/HCPCS: 36415; 80053; 80076; 80197; 83735; 84100; 85025

== ENCOUNTER 2023-08-21 07:44 | Outpatient (CLI) | payer BC, SELFPAY ==
[2023-08-21 07:49] LABS: HCT 36.3 % (40.0-50.0); HGB 11.2 g/dL (13.5-17.5); MCH 29.8 pg (27.0-33.0); MCHC 30.9 % (32.0-36.0); MCV 97 fL (80-95); MPV 10.1 fL (8.0-11.0); Platelet Count 192 10^3/uL (130-400); RBC 3.76 10^6/uL (4.36-5.78); RDW 14.2 % (11.8-14.1); RDW-SD 50.4 fL; WBC 6.64 10^3/uL (4.4-10.8)
[2023-08-21 08:18] LABS: Absolute Eosinophil Count 0.07 10^3/uL (0.0-0.7); Absolute Monocyte Count 0.46 10^3/uL (0.1-0.8); Absolute Neutrophil Count 4.58 10^3/uL (1.2-6.7); Atypical Lymphocytes % 1; Bands % 3; Metamyelocytes % 2; Myelocytes % 3
[2023-08-21 08:19] LABS: Diff Comment Manual Differential; RBC Morphology Normal
[2023-08-21 08:51] LABS: ALT 36 U/L (16-63); AST 18 U/L (15-37); Albumin 3.8 g/dL (3.4-5.0); Alkaline Phosphatase 35 U/L (46-116); Anion Gap 10.6 mmol/L (3-11); BUN 53 mg/dL (7-18); Bilirubin, Total 0.4 mg/dL (0.2-1.0); CO2 29.4 mmol/L (21.0-32.0); CREATININE 2.2 mg/dL (0.70-1.30); Calcium 8.9 mg/dL (8.5-10.1); Calculated LDL 73 mg/dL (<100); Chloride 101 mmol/L (98-107); Cholesterol 129 mg/dL (<200); Estimated GFR 34.72 (mL/min/1.73m2); Glucose 156 mg/dL (74-106); HDL Cholesterol 40 mg/dL (40-60); Magnesium 1.6 mg/dL (1.8-2.4); Potassium 3.4 mmol/L (3.5-5.1); Sodium 141 mmol/L (136-145); Total Protein 6.3 g/dL (6.4-8.2); Triglyceride 82 mg/dL (<150)
[2023-08-21 08:59] LABS: Bilirubin, Direct 0.1 mg/dL (0.0-0.2); PHOSPHORUS 4.2 mg/dL (2.6-4.7)
[2023-08-22 13:09] LABS: Tacrolimus 3.9 ng/mL (See Note)
[2023-08-23 11:58] LABS: CMV DNA Detect/Quant, P Undetected IU/mL (Undetected)
== END 2023-08-21 07:45 | disposition home or self-care (01) ==
LOC: LBO 07:44
PROVIDERS: PCP Nurse Practitioner; Visit Provider Internal Medicine
DX: T86.23 Heart transplant infection (principal)
CPT/HCPCS: 36415; 80048; 80061; 80076; 82947; 84520; 80197; 82310; 82374; 82435; 82565; 83735; 84100; 84132; 84295; 85025; 87497

== ENCOUNTER 2023-08-28 04:47 | Outpatient (CLI) | payer BC, SELFPAY ==
[2023-08-28 07:45] LABS: Abs Immature Grans 0.36 10^3/uL (0.0-0.06); Absolute Basophil Count 0.04 10^3/uL (0.0-0.2); Absolute Eosinophil Count 0.09 10^3/uL (0.0-0.7); Absolute Lymphocyte Count 1.42 10^3/uL (1.2-3.4); Absolute Monocyte Count 0.53 10^3/uL (0.1-0.8); Absolute Neutrophil Count 3.77 10^3/uL (1.2-6.7); Basophils % 0.6; Eosinophils % 1.4; HCT 35.5 % (40.0-50.0); HGB 11.2 g/dL (13.5-17.5); Immature Grans % 5.8; Lymphocytes % 22.9; MCH 29.9 pg (27.0-33.0); MCHC 31.5 % (32.0-36.0); MCV 95 fL (80-95); Monocytes % 8.5; Neutrophils % 60.8; Platelet Count 189 10^3/uL (130-400); RBC 3.74 10^6/uL (4.36-5.78); RDW-SD 49.3 fL; WBC 6.21 10^3/uL (4.4-10.8)
[2023-08-28 08:09] LABS: Diff Comment Diff Reviewed; RBC Morphology Normal
[2023-08-28 08:18] LABS: ALT 29 U/L (16-63); AST 21 U/L (15-37); Albumin 3.7 g/dL (3.4-5.0); Alkaline Phosphatase 41 U/L (46-116); Anion Gap 12.9 mmol/L (3-11); BUN 56 mg/dL (7-18); Bilirubin, Direct 0.2 mg/dL (0.0-0.2); Bilirubin, Total 0.4 mg/dL (0.2-1.0); CO2 27.1 mmol/L (21.0-32.0); CREATININE 2.1 mg/dL (0.70-1.30); Calcium 9.1 mg/dL (8.5-10.1); Chloride 101 mmol/L (98-107); Estimated GFR 36.72 (mL/min/1.73m2); Glucose 170 mg/dL (74-106); Magnesium 1.7 mg/dL (1.8-2.4); PHOSPHORUS 4.6 mg/dL (2.6-4.7); Potassium 3.3 mmol/L (3.5-5.1); Sodium 141 mmol/L (136-145); Total Protein 6.2 g/dL (6.4-8.2)
[2023-08-29 11:34] LABS: Tacrolimus 7.1 ng/mL (See Note)
[2023-08-30 18:38] LABS: CMV DNA Detect/Quant, P Undetected IU/mL (Undetected)
== END 2023-08-28 04:48 | disposition home or self-care (01) ==
LOC: LBO 04:47
PROVIDERS: PCP Nurse Practitioner; Visit Provider Internal Medicine
DX: T86.23 Heart transplant infection (principal)
CPT/HCPCS: 36415; 80048; 80076; 80197; 83735; 84100; 85025; 87497

== ENCOUNTER 2023-09-01 08:00 | Outpatient (RCR) | payer BC, SELFPAY | END 2023-09-06 23:59 | disposition home or self-care (01) | LOC: CR 08:00 | PROVIDERS: PCP Nurse Practitioner; Visit Provider Internal Medicine Interventional Cardiology | DX: T86.23 Heart transplant infection (principal); Z51.89 Encounter for other specified aftercare | CPT/HCPCS: S9472 ==

== ENCOUNTER 2023-09-08 09:25 | Outpatient (CLI) | payer BC, SELFPAY ==
[2023-09-08 10:10] LABS: Absolute Basophil Count 0.06 10^3/uL (0.0-0.2); Absolute Eosinophil Count 0.12 10^3/uL (0.0-0.7); Absolute Lymphocyte Count 1.37 10^3/uL (1.2-3.4); Absolute Monocyte Count 0.56 10^3/uL (0.1-0.8); Absolute Neutrophil Count 3.67 10^3/uL (1.2-6.7); Basophils % 0.9; Eosinophils % 1.9; HCT 35.3 % (40.0-50.0); HGB 11.2 g/dL (13.5-17.5); Immature Grans % 9.4; Lymphocytes % 21.5; MCH 29.2 pg (27.0-33.0); MCHC 31.7 % (32.0-36.0); MCV 92 fL (80-95); MPV 10.7 fL (8.0-11.0); Monocytes % 8.8; Neutrophils % 57.5; Platelet Count 208 10^3/uL (130-400); RBC 3.84 10^6/uL (4.36-5.78); RDW 13.9 % (11.8-14.1); RDW-SD 46.5 fL; WBC 6.38 10^3/uL (4.4-10.8)
[2023-09-08 10:20] LABS: Diff Comment Diff Reviewed; RBC Morphology Normal
[2023-09-08 10:42] LABS: ALT 34 U/L (16-63); AST 19 U/L (15-37); Albumin 3.6 g/dL (3.4-5.0); Alkaline Phosphatase 43 U/L (46-116); Anion Gap 11.3 mmol/L (3-11); BUN 66 mg/dL (7-18); Bilirubin, Total 0.3 mg/dL (0.2-1.0); CO2 24.7 mmol/L (21.0-32.0); CREATININE 2.5 mg/dL (0.70-1.30); Calculated LDL 75 mg/dL (<100); Chloride 101 mmol/L (98-107); Cholesterol 131 mg/dL (<200); Estimated GFR 29.79 (mL/min/1.73m2); Glucose 204 mg/dL (74-106); HDL Cholesterol 35 mg/dL (40-60); Magnesium 1.6 mg/dL (1.8-2.4); Potassium 3.3 mmol/L (3.5-5.1); Sodium 137 mmol/L (136-145); Total Protein 6.2 g/dL (6.4-8.2); Triglyceride 107 mg/dL (<150)
[2023-09-08 10:53] LABS: Bilirubin, Direct 0.1 mg/dL (0.0-0.2); PHOSPHORUS 3.9 mg/dL (2.6-4.7)
[2023-09-09 12:33] LABS: Tacrolimus 7.5 ng/mL (See Note)
[2023-09-11 18:39] LABS: CMV DNA Detect/Quant, P Undetected IU/mL (Undetected)
== END 2023-09-08 09:26 | disposition home or self-care (01) ==
LOC: LBO 09:26
PROVIDERS: PCP Nurse Practitioner; Visit Provider Internal Medicine
DX: T86.23 Heart transplant infection (principal)
CPT/HCPCS: 36415; 80048; 80061; 80076; 80197; 83735; 84100; 85025; 87497

== ENCOUNTER 2023-09-11 05:23 | Outpatient (CLI) | payer BC, SELFPAY ==
[2023-09-11 07:33] LABS: Abs Immature Grans 0.42 10^3/uL (0.0-0.06); Absolute Basophil Count 0.06 10^3/uL (0.0-0.2); Absolute Eosinophil Count 0.11 10^3/uL (0.0-0.7); Absolute Lymphocyte Count 1.57 10^3/uL (1.2-3.4); Absolute Neutrophil Count 3.38 10^3/uL (1.2-6.7); Eosinophils % 1.8; HCT 37.2 % (40.0-50.0); HGB 11.8 g/dL (13.5-17.5); MCHC 31.7 % (32.0-36.0); MCV 91 fL (80-95); MPV 9.8 fL (8.0-11.0); Monocytes % 8.3; Neutrophils % 55.9; Platelet Count 203 10^3/uL (130-400); RBC 4.07 10^6/uL (4.36-5.78); RDW 13.6 % (11.8-14.1); RDW-SD 46.2 fL; WBC 6.04 10^3/uL (4.4-10.8)
[2023-09-11 07:49] LABS: Diff Comment Diff Reviewed; RBC Morphology Normal
[2023-09-11 08:45] LABS: ALT 29 U/L (16-63); AST 18 U/L (15-37); Albumin 3.8 g/dL (3.4-5.0); Alkaline Phosphatase 45 U/L (46-116); Anion Gap 12.3 mmol/L (3-11); BUN 63 mg/dL (7-18); Bilirubin, Total 0.4 mg/dL (0.2-1.0); CO2 26.7 mmol/L (21.0-32.0); CREATININE 2.3 mg/dL (0.70-1.30); Calcium 9.3 mg/dL (8.5-10.1); Calculated LDL 84 mg/dL (<100); Chloride 101 mmol/L (98-107); Cholesterol 145 mg/dL (<200); Estimated GFR 32.92 (mL/min/1.73m2); Glucose 188 mg/dL (74-106); HDL Cholesterol 39 mg/dL (40-60); Magnesium 1.8 mg/dL (1.8-2.4); Potassium 3.4 mmol/L (3.5-5.1); Sodium 140 mmol/L (136-145); Total Protein 6.6 g/dL (6.4-8.2); Triglyceride 111 mg/dL (<150)
[2023-09-11 09:01] LABS: Bilirubin, Direct 0.1 mg/dL (0.0-0.2); PHOSPHORUS 4.3 mg/dL (2.6-4.7)
[2023-09-12 11:57] LABS: Tacrolimus 6.1 ng/mL (See Note)
[2023-09-13 12:22] LABS: CMV DNA Detect/Quant, P Undetected IU/mL (Undetected)
== END 2023-09-11 05:24 | disposition home or self-care (01) ==
LOC: LBO 05:23
PROVIDERS: PCP Nurse Practitioner; Visit Provider Internal Medicine
DX: T86.23 Heart transplant infection (principal)
CPT/HCPCS: 36415; 80048; 80061; 80076; 80197; 83735; 84100; 85025; 87497

== ENCOUNTER 2023-09-18 15:04 | Outpatient (CLI) | payer BC, SELFPAY ==
[2023-09-18 07:57] LABS: Abs Immature Grans 0.12 10^3/uL (0.0-0.06); Absolute Basophil Count 0.03 10^3/uL (0.0-0.2); Absolute Eosinophil Count 0.09 10^3/uL (0.0-0.7); Absolute Monocyte Count 0.47 10^3/uL (0.1-0.8); Absolute Neutrophil Count 1.91 10^3/uL (1.2-6.7); Basophils % 0.8; Eosinophils % 2.4; HCT 37.9 % (40.0-50.0); HGB 11.7 g/dL (13.5-17.5); Immature Grans % 3.1; Lymphocytes % 31.4; MCH 28.1 pg (27.0-33.0); MCHC 30.9 % (32.0-36.0); MCV 91 fL (80-95); MPV 10.9 fL (8.0-11.0); Monocytes % 12.3; Platelet Count 187 10^3/uL (130-400); RBC 4.16 10^6/uL (4.36-5.78); RDW 13.8 % (11.8-14.1); RDW-SD 46.6 fL; WBC 3.82 10^3/uL (4.4-10.8)
[2023-09-18 08:22] LABS: ALT 27 U/L (16-63); AST 17 U/L (15-37); Albumin 3.8 g/dL (3.4-5.0); Alkaline Phosphatase 52 U/L (46-116); Anion Gap 13.3 mmol/L (3-11); BUN 56 mg/dL (7-18); Bilirubin, Direct 0.2 mg/dL (0.0-0.2); Bilirubin, Total 0.4 mg/dL (0.2-1.0); CO2 24.7 mmol/L (21.0-32.0); CREATININE 2.7 mg/dL (0.70-1.30); Calcium 9.1 mg/dL (8.5-10.1); Chloride 103 mmol/L (98-107); Estimated GFR 27.16 (mL/min/1.73m2); Glucose 218 mg/dL (74-106); Magnesium 1.7 mg/dL (1.8-2.4); Potassium 3.7 mmol/L (3.5-5.1); Sodium 141 mmol/L (136-145); Total Protein 6.5 g/dL (6.4-8.2)
[2023-09-18 08:50] LABS: Calculated LDL 80 mg/dL (<100); Cholesterol 138 mg/dL (<200); HDL Cholesterol 34 mg/dL (40-60); Triglyceride 121 mg/dL (<150)
[2023-09-19 12:53] LABS: Tacrolimus 7.1 ng/mL (See Note)
[2023-09-20 15:41] LABS: CMV DNA Detect/Quant, P Undetected IU/mL (Undetected)
== END 2023-09-18 15:05 | disposition home or self-care (01) ==
LOC: LBO 15:04
PROVIDERS: Internal Medicine Infectious Disease; PCP Nurse Practitioner; Visit Provider Internal Medicine
DX: T86.23 Heart transplant infection (principal)
CPT/HCPCS: 36415; 80048; 80061; 80076; 80197; 83735; 84100; 85025; 87497

== ENCOUNTER 2023-09-25 13:50 | Outpatient (CLI) | payer BC, SELFPAY ==
[2023-09-25 07:28] LABS: Abs Immature Grans 0.03 10^3/uL (0.0-0.06); Absolute Basophil Count 0.04 10^3/uL (0.0-0.2); Absolute Eosinophil Count 0.09 10^3/uL (0.0-0.7); Absolute Lymphocyte Count 1.31 10^3/uL (1.2-3.4); Absolute Neutrophil Count 1.12 10^3/uL (1.2-6.7); Basophils % 1.3; Eosinophils % 2.8; HGB 11.2 g/dL (13.5-17.5); Immature Grans % 0.9; Lymphocytes % 41.1; MCH 28.4 pg (27.0-33.0); MCHC 31.1 % (32.0-36.0); MCV 91 fL (80-95); MPV 9.6 fL (8.0-11.0); Monocytes % 18.8; Neutrophils % 35.1; Platelet Count 211 10^3/uL (130-400); RBC 3.95 10^6/uL (4.36-5.78); RDW 13.4 % (11.8-14.1); RDW-SD 45.6 fL; WBC 3.19 10^3/uL (4.4-10.8)
[2023-09-25 08:07] LABS: ALT 27 U/L (16-63); AST 20 U/L (15-37); Albumin 3.6 g/dL (3.4-5.0); Alkaline Phosphatase 48 U/L (46-116); Anion Gap 11.2 mmol/L (3-11); BUN 40 mg/dL (7-18); Bilirubin, Direct 0.2 mg/dL (0.0-0.2); Bilirubin, Total 0.4 mg/dL (0.2-1.0); CO2 27.8 mmol/L (21.0-32.0); CREATININE 2.2 mg/dL (0.70-1.30); Calcium 8.9 mg/dL (8.5-10.1); Calculated LDL 63 mg/dL (<100); Chloride 103 mmol/L (98-107); Cholesterol 123 mg/dL (<200); Estimated GFR 34.72 (mL/min/1.73m2); Glucose 163 mg/dL (74-106); HDL Cholesterol 36 mg/dL (40-60); Magnesium 1.6 mg/dL (1.8-2.4); Potassium 3.6 mmol/L (3.5-5.1); Sodium 142 mmol/L (136-145); Total Protein 6.2 g/dL (6.4-8.2); Triglyceride 121 mg/dL (<150)
[2023-09-25 08:34] LABS: PHOSPHORUS 3.8 mg/dL (2.6-4.7)
[2023-09-26 13:50] LABS: Tacrolimus 4.6 ng/mL (See Note)
[2023-09-26 23:16] LABS: CMV DNA Detect/Quant, P Undetected IU/mL (Undetected)
== END 2023-09-25 13:51 | disposition home or self-care (01) ==
LOC: LBO 13:51
PROVIDERS: PCP Nurse Practitioner; Visit Provider Internal Medicine
DX: T86.23 Heart transplant infection (principal)
CPT/HCPCS: 36415; 80048; 80061; 80076; 80197; 83735; 84100; 85025; 87497

== ENCOUNTER 2023-10-02 08:00 | Outpatient (RCR) | payer BC, SELFPAY | END 2023-10-05 23:59 | disposition home or self-care (01) | LOC: CR 08:00 | PROVIDERS: PCP Nurse Practitioner; Visit Provider Internal Medicine Cardiovascular Disease | DX: T86.23 Heart transplant infection (principal); Z51.89 Encounter for other specified aftercare | CPT/HCPCS: S9472 ==

== ENCOUNTER 2023-10-02 12:17 | Outpatient (CLI) | payer BC, SELFPAY ==
[2023-10-02 07:32] LABS: Absolute Basophil Count 0.04 10^3/uL (0.0-0.2); Absolute Eosinophil Count 0.11 10^3/uL (0.0-0.7); Absolute Lymphocyte Count 1.44 10^3/uL (1.2-3.4); Absolute Monocyte Count 0.69 10^3/uL (0.1-0.8); Absolute Neutrophil Count 2.89 10^3/uL (1.2-6.7); Basophils % 0.7; HCT 37.5 % (40.0-50.0); HGB 11.5 g/dL (13.5-17.5); Immature Grans % 3.7; Lymphocytes % 26.8; MCH 27.6 pg (27.0-33.0); MCHC 30.7 % (32.0-36.0); MCV 90 fL (80-95); MPV 9.6 fL (8.0-11.0); Monocytes % 12.8; Platelet Count 186 10^3/uL (130-400); RBC 4.16 10^6/uL (4.36-5.78); RDW 13.7 % (11.8-14.1); RDW-SD 45.7 fL; WBC 5.37 10^3/uL (4.4-10.8)
[2023-10-02 07:52] LABS: ALT 27 U/L (16-63); AST 20 U/L (15-37); Albumin 3.7 g/dL (3.4-5.0); Alkaline Phosphatase 51 U/L (46-116); Anion Gap 12.3 mmol/L (3-11); BUN 46 mg/dL (7-18); Bilirubin, Direct 0.2 mg/dL (0.0-0.2); Bilirubin, Total 0.4 mg/dL (0.2-1.0); CO2 27.7 mmol/L (21.0-32.0); CREATININE 2.3 mg/dL (0.70-1.30); Calcium 9.3 mg/dL (8.5-10.1); Chloride 102 mmol/L (98-107); Estimated GFR 32.92 (mL/min/1.73m2); Glucose 170 mg/dL (74-106); Magnesium 1.7 mg/dL (1.8-2.4); PHOSPHORUS 3.8 mg/dL (2.6-4.7); Potassium 3.5 mmol/L (3.5-5.1); Sodium 142 mmol/L (136-145); Total Protein 6.2 g/dL (6.4-8.2)
[2023-10-02 08:05] LABS: Calculated LDL 69 mg/dL (<100); Cholesterol 127 mg/dL (<200); HDL Cholesterol 36 mg/dL (40-60); Triglyceride 112 mg/dL (<150)
[2023-10-03 11:52] LABS: Tacrolimus 4.6 ng/mL (See Note)
[2023-10-04 14:13] LABS: CMV DNA Detect/Quant, P Undetected IU/mL (Undetected)
== END 2023-10-02 12:18 | disposition home or self-care (01) ==
LOC: LBO 12:17
PROVIDERS: PCP Nurse Practitioner; Visit Provider Internal Medicine
DX: T86.23 Heart transplant infection (principal)
CPT/HCPCS: 36415; 80048; 80061; 80076; 80197; 83735; 84100; 85025; 87497

== ENCOUNTER 2023-10-09 14:36 | Outpatient (CLI) | payer BC, SELFPAY ==
[2023-10-09 08:03] LABS: Absolute Basophil Count 0.06 10^3/uL (0.0-0.2); Absolute Lymphocyte Count 1.32 10^3/uL (1.2-3.4); Absolute Monocyte Count 0.63 10^3/uL (0.1-0.8); Absolute Neutrophil Count 3.83 10^3/uL (1.2-6.7); Eosinophils % 1.7; HCT 38.6 % (40.0-50.0); HGB 11.6 g/dL (13.5-17.5); Immature Grans % 1.7; Lymphocytes % 21.9; MCH 27.6 pg (27.0-33.0); MCHC 30.1 % (32.0-36.0); MCV 92 fL (80-95); MPV 10.1 fL (8.0-11.0); Monocytes % 10.4; Neutrophils % 63.3; Platelet Count 203 10^3/uL (130-400); RDW 14.1 % (11.8-14.1); RDW-SD 47.3 fL; WBC 6.04 10^3/uL (4.4-10.8)
[2023-10-09 08:48] LABS: ALT 24 U/L (16-63); AST 25 U/L (15-37); Albumin 3.8 g/dL (3.4-5.0); Alkaline Phosphatase 52 U/L (46-116); Anion Gap 10.3 mmol/L (3-11); BUN 44 mg/dL (7-18); Bilirubin, Total 0.6 mg/dL (0.2-1.0); CO2 28.7 mmol/L (21.0-32.0); CREATININE 2.1 mg/dL (0.70-1.30); Calcium 9.3 mg/dL (8.5-10.1); Calculated LDL 90 mg/dL (<100); Chloride 101 mmol/L (98-107); Cholesterol 145 mg/dL (<200); Estimated GFR 36.72 (mL/min/1.73m2); Glucose 165 mg/dL (74-106); HDL Cholesterol 34 mg/dL (40-60); Magnesium 1.9 mg/dL (1.8-2.4); Potassium 3.5 mmol/L (3.5-5.1); Sodium 140 mmol/L (136-145); Total Protein 6.3 g/dL (6.4-8.2); Triglyceride 106 mg/dL (<150)
[2023-10-09 09:10] LABS: Bilirubin, Direct 0.2 mg/dL (0.0-0.2); PHOSPHORUS 4.4 mg/dL (2.6-4.7)
[2023-10-10 12:03] LABS: Tacrolimus 4.7 ng/mL (See Note)
[2023-10-11 14:12] LABS: CMV DNA Detect/Quant, P Undetected IU/mL (Undetected)
== END 2023-10-09 14:37 | disposition home or self-care (01) ==
PROVIDERS: PCP Nurse Practitioner; Visit Provider Internal Medicine
DX: T86.23 Heart transplant infection (principal)
CPT/HCPCS: 36415; 80048; 80061; 80076; 80197; 83735; 84100; 85025; 87497

== ENCOUNTER 2023-10-23 08:43 | Outpatient (RCR) | payer BC, SELFPAY ==
--- NOTE | 2023-11-06 15:29 | NUR.NOTE ---
Nursing Note: On Monday11/06/23, at approximately 0800, this RN answered a call from the pt. Pt. stated that he wouldn't be attending cardiac rehab this morning, and possibly, for the rest of the week. Pt. stated that he still wasn't feeling well. Since the pt. hasn't been feeling well for going on two weeks, this RN asked pt. if he had informed his PCP. Pt. stated that he had informed his PCP, and that his PCP told him it was probably just a bad cold. Pt. then stated that he had an appointment with his wildlife technician down in [place], [place] tomorrow (Monday11/07/23). RN informed pt. that he should inform his wildlife technician that he hasn't been feeling well for almost two weeks, and pt. verbalized that he would do so. Elma Currie RN Nurse Comber Operator then asked to speak with the pt. This RN handed the phone to the nurse client care manager who continued to ask the pt. questions regarding whether or not the pt. was experiencing any s/s of fluid overload/retention or transplant rejection. Per the nurse client care manager, pt. denied any of the s/s, and stated that he just had cold s/s. Nurse client care manager informed pt. that it was extremely important that he keep his cardiology appointment tomorrow, and asked that the pt. call and give cardiac rehab staff an update following his appointment. Per nurse client care manager, pt. verbalized that he would do so. Call then ended.
== END 2023-11-05 23:59 | disposition home or self-care (01) ==
LOC: CR 08:43
PROVIDERS: PCP Nurse Practitioner; Visit Provider Internal Medicine Cardiovascular Disease
DX: I50.82 Biventricular heart failure (principal); T86.23 Heart transplant infection; Z51.89 Encounter for other specified aftercare
CPT/HCPCS: S9472

== ENCOUNTER 2023-11-17 09:43 | Outpatient (CLI) | payer BC, SELFPAY ==
[2023-11-17 09:45] LABS: Abs Immature Grans 0.05 10^3/uL (0.0-0.06); Absolute Basophil Count 0.03 10^3/uL (0.0-0.2); Absolute Eosinophil Count 0.09 10^3/uL (0.0-0.7); Absolute Lymphocyte Count 0.95 10^3/uL (1.2-3.4); Absolute Monocyte Count 0.52 10^3/uL (0.1-0.8); Absolute Neutrophil Count 3.89 10^3/uL (1.2-6.7); Basophils % 0.5; Eosinophils % 1.6; HCT 37.2 % (40.0-50.0); HGB 11.1 g/dL (13.5-17.5); Immature Grans % 0.9; Lymphocytes % 17.2; MCH 26.4 pg (27.0-33.0); MCHC 29.8 % (32.0-36.0); MCV 89 fL (80-95); MPV 9.8 fL (8.0-11.0); Monocytes % 9.4; Neutrophils % 70.4; Platelet Count 198 10^3/uL (130-400); RDW 14.4 % (11.8-14.1); WBC 5.53 10^3/uL (4.4-10.8)
[2023-11-17 09:52] LABS: INR 1.4 (0.9-1.1); Prothrombin Time 13.6 sec (9.1-11.1)
[2023-11-17 10:39] LABS: ALT 19 U/L (16-63); AST 21 U/L (15-37); Albumin 3.9 g/dL (3.4-5.0); Alkaline Phosphatase 62 U/L (46-116); Anion Gap 12.8 mmol/L (3-11); BUN 53 mg/dL (7-18); Bilirubin, Total 0.6 mg/dL (0.2-1.0); CO2 26.2 mmol/L (21.0-32.0); CREATININE 2.7 mg/dL (0.70-1.30); Calcium 9.2 mg/dL (8.5-10.1); Chloride 103 mmol/L (98-107); Estimated GFR 27.16 (mL/min/1.73m2); Glucose 101 mg/dL (74-106); Potassium 4.1 mmol/L (3.5-5.1); Sodium 142 mmol/L (136-145); Total Protein 6.6 g/dL (6.4-8.2)
[2023-11-18 12:07] LABS: Tacrolimus 6.5 ng/mL (See Note)
[2023-11-20 13:30] LABS: CMV DNA Detect/Quant, P Undetected IU/mL (Undetected)
== END 2023-11-17 09:44 | disposition home or self-care (01) ==
LOC: LBO 09:43
PROVIDERS: PCP Nurse Practitioner; Visit Provider Nurse Practitioner Adult Health
DX: Z94.1 Heart transplant status (principal)
CPT/HCPCS: 36415; 80053; 80197; 85025; 85610; 87497

== ENCOUNTER 2023-11-20 08:00 | Outpatient (RCR) | payer BC, SELFPAY | END 2023-12-05 23:59 | disposition home or self-care (01) | LOC: CR 08:00 | PROVIDERS: PCP Nurse Practitioner; Visit Provider Internal Medicine Cardiovascular Disease | DX: I50.82 Biventricular heart failure (principal); Z51.89 Encounter for other specified aftercare | CPT/HCPCS: S9472 ==

== ENCOUNTER 2023-11-23 08:52 | Outpatient (CLI) | payer BC, SELFPAY ==
[2023-11-23 08:59] LABS: Abs Immature Grans 0.06 10^3/uL (0.0-0.06); Absolute Basophil Count 0.04 10^3/uL (0.0-0.2); Absolute Eosinophil Count 0.12 10^3/uL (0.0-0.7); Absolute Lymphocyte Count 0.97 10^3/uL (1.2-3.4); Absolute Monocyte Count 0.47 10^3/uL (0.1-0.8); Absolute Neutrophil Count 4.21 10^3/uL (1.2-6.7); Basophils % 0.7; HCT 36.6 % (40.0-50.0); HGB 10.7 g/dL (13.5-17.5); Lymphocytes % 16.5; MCH 26.1 pg (27.0-33.0); MCHC 29.2 % (32.0-36.0); MCV 89 fL (80-95); MPV 10.6 fL (8.0-11.0); Neutrophils % 71.8; Platelet Count 166 10^3/uL (130-400); RDW 14.4 % (11.8-14.1); WBC 5.87 10^3/uL (4.4-10.8)
[2023-11-23 09:11] LABS: INR 2.8 (0.9-1.1); Prothrombin Time 25.7 sec (9.1-11.1)
[2023-11-23 09:54] LABS: ALT 20 U/L (16-63); AST 25 U/L (15-37); Albumin 3.6 g/dL (3.4-5.0); Alkaline Phosphatase 60 U/L (46-116); Anion Gap 10.9 mmol/L (3-11); BUN 47 mg/dL (7-18); Bilirubin, Total 0.6 mg/dL (0.2-1.0); CO2 25.1 mmol/L (21.0-32.0); CREATININE 2.3 mg/dL (0.70-1.30); Calcium 8.7 mg/dL (8.5-10.1); Chloride 106 mmol/L (98-107); Estimated GFR 32.92 (mL/min/1.73m2); Glucose 129 mg/dL (74-106); Potassium 3.9 mmol/L (3.5-5.1); Sodium 142 mmol/L (136-145); Total Protein 6.3 g/dL (6.4-8.2)
[2023-11-24 13:35] LABS: Tacrolimus 4.7 ng/mL (See Note)
[2023-11-26 17:40] LABS: CMV DNA Detect/Quant, P Undetected IU/mL (Undetected)
== END 2023-11-23 08:53 | disposition home or self-care (01) ==
LOC: LBO 08:53
PROVIDERS: PCP Nurse Practitioner; Visit Provider Nurse Practitioner Adult Health
DX: Z94.1 Heart transplant status (principal)
CPT/HCPCS: 36415; 80053; 80197; 85025; 85610; 87497

== ENCOUNTER 2024-01-17 01:36 | Outpatient (CLI) | payer BC, SELFPAY ==
[2024-01-17 07:56] LABS: Abs Immature Grans 0.17 10^3/uL (0.0-0.06); Absolute Basophil Count 0.01 10^3/uL (0.0-0.2); Absolute Eosinophil Count 0.12 10^3/uL (0.0-0.7); Absolute Monocyte Count 0.25 10^3/uL (0.1-0.8); Absolute Neutrophil Count 2.55 10^3/uL (1.2-6.7); Basophils % 0.3 %; Eosinophils % 3.2 %; HCT 36.6 % (40.0-50.0); HGB 10.5 g/dL (13.5-17.5); Immature Grans % 4.5 %; Lymphocytes % 18.4 %; MCH 23.9 pg (27.0-33.0); MCHC 28.7 % (32.0-36.0); MCV 83 fL (80-95); MPV 9.6 fL (8.0-11.0); Monocytes % 6.6 %; Platelet Count 100 10^3/uL (130-400); RBC 4.39 10^6/uL (4.36-5.78); RDW 15.5 % (11.8-14.1); RDW-SD 47.3 fL
[2024-01-17 08:10] LABS: INR 3.2 (0.9-1.1); PTT Activated 44.3 sec (23.6-32.8); Prothrombin Time 28.7 sec (9.1-11.1)
[2024-01-17 08:53] LABS: ALT 32 U/L (16-63); AST 19 U/L (15-37); Albumin 3.9 g/dL (3.4-5.0); Alkaline Phosphatase 73 U/L (46-116); Anion Gap 14.9 mmol/L (3-11); BUN 37 mg/dL (7-18); Bilirubin, Direct 0.2 mg/dL (0.0-0.2); Bilirubin, Total 0.4 mg/dL (0.2-1.0); CO2 22.1 mmol/L (21.0-32.0); Chloride 103 mmol/L (98-107); Creatine Kinase 78 U/L (39-308); Estimated GFR 38.69 (mL/min/1.73m2); Glucose 137 mg/dL (74-106); LDH 272 U/L (85-227); Magnesium 2.3 mg/dL (1.8-2.4); Potassium 3.2 mmol/L (3.5-5.1); Sodium 140 mmol/L (136-145); Total Protein 7.1 g/dL (6.4-8.2); Uric Acid 6.1 mg/dL (3.5-7.2)
[2024-01-19 12:04] LABS: Sirolimus 11.9 ng/mL (See Note)
== END 2024-01-17 01:37 | disposition home or self-care (01) ==
LOC: LBO 01:36
PROVIDERS: Nurse Practitioner Adult Health; PCP Nurse Practitioner; Visit Provider Internal Medicine
DX: Z94.1 Heart transplant status (principal)
CPT/HCPCS: 36415; 80053; 80076; 82550; 80195; 83615; 83735; 84100; 84550; 85025; 85610; 85730

== ENCOUNTER 2024-01-24 04:46 | Outpatient (CLI) | payer BC, SELFPAY ==
[2024-01-24 08:18] LABS: Abs Immature Grans 0.11 10^3/uL (0.0-0.06); Absolute Basophil Count 0.02 10^3/uL (0.0-0.2); Absolute Eosinophil Count 0.08 10^3/uL (0.0-0.7); Absolute Monocyte Count 0.38 10^3/uL (0.1-0.8); Absolute Neutrophil Count 2.02 10^3/uL (1.2-6.7); Basophils % 0.6 %; Eosinophils % 2.5 %; HGB 10.5 g/dL (13.5-17.5); Immature Grans % 3.4 %; Lymphocytes % 18.7 %; MCH 23.9 pg (27.0-33.0); MCHC 29.2 % (32.0-36.0); MCV 82 fL (80-95); MPV 9.8 fL (8.0-11.0); Monocytes % 11.8 %; Platelet Count 176 10^3/uL (130-400); RDW 16.2 % (11.8-14.1); RDW-SD 48.3 fL; WBC 3.21 10^3/uL (4.4-10.8)
[2024-01-24 08:35] LABS: INR 2.7 (0.9-1.1); PTT Activated 35.7 sec (23.6-32.8); Prothrombin Time 25.2 sec (9.1-11.1)
[2024-01-24 09:33] LABS: ALT 31 U/L (16-63); AST 22 U/L (15-37); Albumin 3.8 g/dL (3.4-5.0); Alkaline Phosphatase 78 U/L (46-116); Anion Gap 14.6 mmol/L (3-11); BUN 32 mg/dL (7-18); Bilirubin, Direct 0.2 mg/dL (0.0-0.2); Bilirubin, Total 0.5 mg/dL (0.2-1.0); CO2 22.4 mmol/L (21.0-32.0); CREATININE 1.9 mg/dL (0.70-1.30); Calcium 8.8 mg/dL (8.5-10.1); Chloride 103 mmol/L (98-107); Creatine Kinase 93 U/L (39-308); Estimated GFR 41.14 (mL/min/1.73m2); Glucose 137 mg/dL (74-106); LDH 250 U/L (85-227); PHOSPHORUS 3.1 mg/dL (2.6-4.7); Sodium 140 mmol/L (136-145); Total Protein 6.8 g/dL (6.4-8.2); Uric Acid 6.3 mg/dL (3.5-7.2)
[2024-01-24 10:02] LABS: Potassium 2.6 mmol/L (3.5-5.1)
[2024-01-26 12:10] LABS: Sirolimus 9.6 ng/mL (See Note)
== END 2024-01-24 04:47 | disposition home or self-care (01) ==
LOC: LBO 04:46
PROVIDERS: PCP Nurse Practitioner; Visit Provider Internal Medicine
DX: Z94.1 Heart transplant status (principal); E85.4 Organ-limited amyloidosis
CPT/HCPCS: 36415; 80053; 80076; 82550; 80195; 83615; 83735; 84100; 84550; 85025; 85610; 85730

== ENCOUNTER 2024-01-31 01:38 | Outpatient (CLI) | payer BC, SELFPAY ==
[2024-01-31 07:51] LABS: Abs Immature Grans 0.09 10^3/uL (0.0-0.06); Absolute Basophil Count 0.05 10^3/uL (0.0-0.2); Absolute Eosinophil Count 0.04 10^3/uL (0.0-0.7); Absolute Lymphocyte Count 1.09 10^3/uL (1.2-3.4); Absolute Monocyte Count 0.64 10^3/uL (0.1-0.8); Absolute Neutrophil Count 3.38 10^3/uL (1.2-6.7); Basophils % 0.9 %; Eosinophils % 0.8 %; HCT 36.3 % (40.0-50.0); HGB 10.5 g/dL (13.5-17.5); Immature Grans % 1.7 %; Lymphocytes % 20.6 %; MCH 23.3 pg (27.0-33.0); MCHC 28.9 % (32.0-36.0); MCV 81 fL (80-95); MPV 9.4 fL (8.0-11.0); Monocytes % 12.1 %; Neutrophils % 63.9 %; Platelet Count 231 10^3/uL (130-400); RBC 4.51 10^6/uL (4.36-5.78); RDW 16.9 % (11.8-14.1); RDW-SD 48.5 fL; WBC 5.29 10^3/uL (4.4-10.8)
[2024-01-31 08:02] LABS: INR 1.9 (0.9-1.1); Prothrombin Time 18.5 sec (9.1-11.1)
[2024-01-31 08:27] LABS: ALT 25 U/L (16-63); AST 16 U/L (15-37); Albumin 3.7 g/dL (3.4-5.0); Alkaline Phosphatase 77 U/L (46-116); Anion Gap 11.9 mmol/L (3-11); BUN 36 mg/dL (7-18); Bilirubin, Direct 0.2 mg/dL (0.0-0.2); CO2 25.1 mmol/L (21.0-32.0); Calcium 8.8 mg/dL (8.5-10.1); Chloride 103 mmol/L (98-107); Creatine Kinase 79 U/L (39-308); Estimated GFR 38.69 (mL/min/1.73m2); Glucose 151 mg/dL (74-106); LDH 215 U/L (85-227); Magnesium 2.1 mg/dL (1.8-2.4); PHOSPHORUS 3.1 mg/dL (2.6-4.7); Potassium 3.1 mmol/L (3.5-5.1); Sodium 140 mmol/L (136-145); Total Protein 6.7 g/dL (6.4-8.2); Uric Acid 7.3 mg/dL (3.5-7.2)
== END 2024-01-31 01:39 | disposition home or self-care (01) ==
PROVIDERS: PCP Nurse Practitioner; Visit Provider Nurse Practitioner Adult Health
DX: I82.4Y3 Acute embolism and thrombosis of unspecified deep veins of proximal lower extremity, bilateral (principal); Z94.1 Heart transplant status
CPT/HCPCS: 36415; 80053; 80076; 82550; 80195; 83615; 83735; 84100; 84550; 85025; 85610

== ENCOUNTER 2024-02-14 02:29 | Outpatient (CLI) | payer BC, SELFPAY ==
[2024-02-14 07:49] LABS: Abs Immature Grans 0.06 10^3/uL (0.0-0.06); Absolute Basophil Count 0.05 10^3/uL (0.0-0.2); Absolute Eosinophil Count 0.13 10^3/uL (0.0-0.7); Absolute Monocyte Count 0.59 10^3/uL (0.1-0.8); Basophils % 0.8 %; Eosinophils % 2.1 %; HCT 38.2 % (40.0-50.0); HGB 10.9 g/dL (13.5-17.5); Immature Grans % 0.9 %; Lymphocytes % 17.4 %; MCH 22.9 pg (27.0-33.0); MCHC 28.5 % (32.0-36.0); MCV 80 fL (80-95); MPV 9.6 fL (8.0-11.0); Monocytes % 9.3 %; Neutrophils % 69.5 %; Platelet Count 244 10^3/uL (130-400); RBC 4.76 10^6/uL (4.36-5.78); RDW 16.9 % (11.8-14.1); WBC 6.33 10^3/uL (4.4-10.8)
[2024-02-14 08:04] LABS: Prothrombin Time 18.9 sec (9.1-11.1)
[2024-02-14 09:01] LABS: ALT 23 U/L (16-63); AST 21 U/L (15-37); Albumin 3.8 g/dL (3.4-5.0); Alkaline Phosphatase 80 U/L (46-116); Anion Gap 10.9 mmol/L (3-11); BUN 38 mg/dL (7-18); Bilirubin, Direct 0.3 mg/dL (0.0-0.2); Bilirubin, Total 0.61 mg/dL (0.2-1.0); CO2 28.1 mmol/L (21.0-32.0); CREATININE 2.2 mg/dL (0.70-1.30); Calcium 8.9 mg/dL (8.5-10.1); Chloride 97 mmol/L (98-107); Creatine Kinase 152 U/L (39-308); Estimated GFR 34.51 (mL/min/1.73m2); Glucose 129 mg/dL (74-106); LDH 217 U/L (85-227); Magnesium 2.3 mg/dL (1.8-2.4); Sodium 136 mmol/L (136-145); Total Protein 6.9 g/dL (6.4-8.2); Uric Acid 7.8 mg/dL (3.5-7.2)
[2024-02-14 09:36] LABS: Potassium 2.4 mmol/L (3.5-5.1)
[2024-02-16 16:18] LABS: Sirolimus 14.2 ng/mL (See Note)
== END 2024-02-14 02:30 | disposition home or self-care (01) ==
PROVIDERS: PCP Nurse Practitioner; Visit Provider Nurse Practitioner Adult Health
DX: Z94.1 Heart transplant status (principal); I82.4Y3 Acute embolism and thrombosis of unspecified deep veins of proximal lower extremity, bilateral
CPT/HCPCS: 36415; 80053; 80076; 82550; 80195; 83615; 83735; 84100; 84550; 85025; 85610

== ENCOUNTER 2024-02-21 03:14 | Outpatient (CLI) | payer BC, SELFPAY ==
[2024-02-21 08:22] LABS: Abs Immature Grans 0.11 10^3/uL (0.0-0.06); Absolute Basophil Count 0.05 10^3/uL (0.0-0.2); Absolute Eosinophil Count 0.16 10^3/uL (0.0-0.7); Absolute Lymphocyte Count 0.93 10^3/uL (1.2-3.4); Absolute Monocyte Count 0.58 10^3/uL (0.1-0.8); Basophils % 0.9 %; Eosinophils % 2.8 %; HCT 38.7 % (40.0-50.0); HGB 11.1 g/dL (13.5-17.5); Lymphocytes % 16.5 %; MCH 22.8 pg (27.0-33.0); MCHC 28.7 % (32.0-36.0); MCV 80 fL (80-95); MPV 9.8 fL (8.0-11.0); Monocytes % 10.3 %; Neutrophils % 67.5 %; Platelet Count 222 10^3/uL (130-400); RBC 4.86 10^6/uL (4.36-5.78); RDW 17.1 % (11.8-14.1); RDW-SD 49.2 fL; WBC 5.63 10^3/uL (4.4-10.8)
[2024-02-21 08:32] LABS: Prothrombin Time 18.8 sec (9.1-11.1)
[2024-02-21 08:41] LABS: ALT 23 U/L (16-63); AST 19 U/L (15-37); Albumin 3.9 g/dL (3.4-5.0); Alkaline Phosphatase 74 U/L (46-116); Anion Gap 11.1 mmol/L (3-11); BUN 34 mg/dL (7-18); Bilirubin, Direct 0.2 mg/dL (0.0-0.2); CO2 26.9 mmol/L (21.0-32.0); CREATININE 2.1 mg/dL (0.70-1.30); Calcium 8.8 mg/dL (8.5-10.1); Chloride 100 mmol/L (98-107); Creatine Kinase 113 U/L (39-308); Estimated GFR 36.49 (mL/min/1.73m2); Glucose 132 mg/dL (74-106); LDH 216 U/L (85-227); Magnesium 2.3 mg/dL (1.8-2.4); PHOSPHORUS 3.8 mg/dL (2.6-4.7); Sodium 138 mmol/L (136-145); Total Protein 6.8 g/dL (6.4-8.2); Uric Acid 6.9 mg/dL (3.5-7.2)
[2024-02-21 09:50] LABS: Potassium 2.9 mmol/L (3.5-5.1)
[2024-02-22 12:54] LABS: Sirolimus 14.6 ng/mL (See Note)
== END 2024-02-21 03:15 | disposition home or self-care (01) ==
LOC: LBO 03:14
PROVIDERS: PCP Nurse Practitioner; Visit Provider Internal Medicine
DX: I82.4Y3 Acute embolism and thrombosis of unspecified deep veins of proximal lower extremity, bilateral (principal); Z94.1 Heart transplant status
CPT/HCPCS: 36415; 80053; 80076; 82550; 80195; 83615; 83735; 84100; 84550; 85025; 85610

== ENCOUNTER 2024-02-28 01:29 | Outpatient (CLI) | payer BC, SELFPAY ==
[2024-02-28 08:31] LABS: Abs Immature Grans 0.03 10^3/uL (0.0-0.06); Absolute Basophil Count 0.06 10^3/uL (0.0-0.2); Absolute Eosinophil Count 0.16 10^3/uL (0.0-0.7); Absolute Neutrophil Count 4.64 10^3/uL (1.2-6.7); Eosinophils % 2.5 %; HCT 39.9 % (40.0-50.0); HGB 11.3 g/dL (13.5-17.5); Immature Grans % 0.5 %; Lymphocytes % 14.3 %; MCH 22.5 pg (27.0-33.0); MCHC 28.3 % (32.0-36.0); MCV 79 fL (80-95); Monocytes % 7.9 %; Neutrophils % 73.8 %; Platelet Count 212 10^3/uL (130-400); RBC 5.03 10^6/uL (4.36-5.78); RDW 17.1 % (11.8-14.1); RDW-SD 48.6 fL; WBC 6.29 10^3/uL (4.4-10.8)
[2024-02-28 08:42] LABS: INR 2.3 (0.9-1.1); Prothrombin Time 21.2 sec (9.1-11.1)
[2024-02-28 08:51] LABS: ALT 23 U/L (16-63); AST 18 U/L (15-37); Albumin 3.9 g/dL (3.4-5.0); Alkaline Phosphatase 84 U/L (46-116); Anion Gap 10.5 mmol/L (3-11); BUN 35 mg/dL (7-18); Bilirubin, Total 0.61 mg/dL (0.2-1.0); CO2 28.5 mmol/L (21.0-32.0); CREATININE 2.3 mg/dL (0.70-1.30); Calcium 8.8 mg/dL (8.5-10.1); Chloride 102 mmol/L (98-107); Creatine Kinase 110 U/L (39-308); Estimated GFR 32.71 (mL/min/1.73m2); Glucose 137 mg/dL (74-106); LDH 216 U/L (85-227); Magnesium 2.4 mg/dL (1.8-2.4); PHOSPHORUS 3.4 mg/dL (2.6-4.7); Potassium 3.7 mmol/L (3.5-5.1); Sodium 141 mmol/L (136-145); Uric Acid 6.2 mg/dL (3.5-7.2)
[2024-02-28 19:24] LABS: Hep A Total Ab w Rflx IgM Negative (Negative)
[2024-02-29 12:27] LABS: Sirolimus 22.7 ng/mL (See Note)
== END 2024-02-28 01:30 | disposition home or self-care (01) ==
PROVIDERS: PCP Nurse Practitioner; Visit Provider Nurse Practitioner Adult Health
DX: I82.4Y3 Acute embolism and thrombosis of unspecified deep veins of proximal lower extremity, bilateral (principal); Z94.1 Heart transplant status
CPT/HCPCS: 36415; 80053; 82550; 86709; 80195; 83615; 83735; 84100; 84550; 85025; 85610

== ENCOUNTER 2024-03-06 02:34 | Outpatient (CLI) | payer BC, SELFPAY ==
[2024-03-06 07:53] LABS: Abs Immature Grans 0.04 10^3/uL (0.0-0.06); Absolute Basophil Count 0.06 10^3/uL (0.0-0.2); Absolute Eosinophil Count 0.16 10^3/uL (0.0-0.7); Absolute Lymphocyte Count 0.85 10^3/uL (1.2-3.4); Absolute Monocyte Count 0.48 10^3/uL (0.1-0.8); Basophils % 0.9 %; Eosinophils % 2.5 %; HCT 43.5 % (40.0-50.0); HGB 11.9 g/dL (13.5-17.5); Immature Grans % 0.6 %; Lymphocytes % 13.3 %; MCH 21.8 pg (27.0-33.0); MCHC 27.4 % (32.0-36.0); MCV 80 fL (80-95); MPV 9.7 fL (8.0-11.0); Monocytes % 7.5 %; Neutrophils % 75.2 %; Platelet Count 208 10^3/uL (130-400); RBC 5.45 10^6/uL (4.36-5.78); RDW 17.4 % (11.8-14.1); RDW-SD 49.6 fL; WBC 6.39 10^3/uL (4.4-10.8)
[2024-03-06 08:05] LABS: INR 2.8 (0.9-1.1); Prothrombin Time 25.9 sec (9.1-11.1)
[2024-03-06 08:21] LABS: Diff Comment RBC Morph Reviewed; Hypochromasia 1+
[2024-03-06 08:22] LABS: ALT 25 U/L (16-63); AST 22 U/L (15-37); Albumin 4.1 g/dL (3.4-5.0); Alkaline Phosphatase 89 U/L (46-116); Anion Gap 13.3 mmol/L (3-11); BUN 34 mg/dL (7-18); Bilirubin, Direct 0.3 mg/dL (0.0-0.2); CO2 26.7 mmol/L (21.0-32.0); CREATININE 2.2 mg/dL (0.70-1.30); Calcium 9.5 mg/dL (8.5-10.1); Chloride 100 mmol/L (98-107); Creatine Kinase 120 U/L (39-308); Estimated GFR 34.51 (mL/min/1.73m2); Glucose 131 mg/dL (74-106); LDH 222 U/L (85-227); Magnesium 2.6 mg/dL (1.8-2.4); Potassium 3.5 mmol/L (3.5-5.1); Sodium 140 mmol/L (136-145); Total Protein 7.2 g/dL (6.4-8.2)
[2024-03-06 15:55] LABS: PHOSPHORUS 3.6 mg/dL (2.6-4.7); Uric Acid 6.9 mg/dL (3.5-7.2)
== END 2024-03-06 02:35 | disposition home or self-care (01) ==
PROVIDERS: PCP Nurse Practitioner; Visit Provider Nurse Practitioner Adult Health
DX: I82.4Y3 Acute embolism and thrombosis of unspecified deep veins of proximal lower extremity, bilateral (principal); Z94.1 Heart transplant status
CPT/HCPCS: 36415; 80053; 80076; 82550; 80195; 83615; 83735; 84100; 84550; 85025; 85610

== ENCOUNTER 2024-03-28 03:45 | Outpatient (CLI) | payer BC, SELFPAY ==
[2024-03-28 07:48] LABS: Abs Immature Grans 0.17 10^3/uL (0.0-0.06); Absolute Basophil Count 0.01 10^3/uL (0.0-0.2); Absolute Eosinophil Count 0.04 10^3/uL (0.0-0.7); Absolute Lymphocyte Count 1.16 10^3/uL (1.2-3.4); Absolute Monocyte Count 0.92 10^3/uL (0.1-0.8); Absolute Neutrophil Count 7.48 10^3/uL (1.2-6.7); Basophils % 0.1 %; Eosinophils % 0.4 %; HCT 37.4 % (40.0-50.0); HGB 10.3 g/dL (13.5-17.5); Immature Grans % 1.7 %; Lymphocytes % 11.9 %; MCH 21.7 pg (27.0-33.0); MCHC 27.5 % (32.0-36.0); MCV 79 fL (80-95); MPV 9.6 fL (8.0-11.0); Monocytes % 9.4 %; Neutrophils % 76.5 %; RBC 4.75 10^6/uL (4.36-5.78); RDW 17.7 % (11.8-14.1); RDW-SD 50.4 fL; WBC 9.78 10^3/uL (4.4-10.8)
[2024-03-28 07:57] LABS: INR 1.1 (0.9-1.1); Prothrombin Time 11.4 sec (9.1-11.1)
[2024-03-28 08:05] LABS: ALT 28 U/L (16-63); AST 23 U/L (15-37); Albumin 4.2 g/dL (3.4-5.0); Alkaline Phosphatase 86 U/L (46-116); Anion Gap 12.2 mmol/L (3-11); BUN 56 mg/dL (7-18); Bilirubin, Direct 0.3 mg/dL (0.0-0.2); Bilirubin, Total 0.42 mg/dL (0.2-1.0); CO2 25.8 mmol/L (21.0-32.0); CREATININE 2.6 mg/dL (0.70-1.30); Calcium 9.6 mg/dL (8.5-10.1); Chloride 99 mmol/L (98-107); Creatine Kinase 55 U/L (39-308); Estimated GFR 28.24 (mL/min/1.73m2); Glucose 99 mg/dL (74-106); LDH 201 U/L (85-227); Magnesium 2.5 mg/dL (1.8-2.4); PHOSPHORUS 3.8 mg/dL (2.6-4.7); Potassium 4.5 mmol/L (3.5-5.1); Sodium 137 mmol/L (136-145); Total Protein 7.3 g/dL (6.4-8.2); Uric Acid 5.9 mg/dL (3.5-7.2)
[2024-03-28 08:15] LABS: Platelet Count 222 10^3/uL (130-400)
[2024-03-28 08:16] LABS: Diff Comment Diff Reviewed; Hypochromasia 1+; Poikilocytes 1+
[2024-03-29 12:21] LABS: Sirolimus 9.5 ng/mL (See Note)
== END 2024-03-28 03:46 | disposition home or self-care (01) ==
PROVIDERS: Internal Medicine; PCP Nurse Practitioner; Visit Provider Nurse Practitioner Adult Health
DX: I82.4Y3 Acute embolism and thrombosis of unspecified deep veins of proximal lower extremity, bilateral (principal); Z94.1 Heart transplant status
CPT/HCPCS: 36415; 80053; 80076; 82550; 80195; 83615; 83735; 84100; 84550; 85025; 85610

== ENCOUNTER 2024-04-04 03:51 | Outpatient (CLI) | payer BC, SELFPAY ==
[2024-04-04 08:11] LABS: Abs Immature Grans 0.56 10^3/uL (0.0-0.06); Absolute Basophil Count 0.02 10^3/uL (0.0-0.2); Basophils % 0.2 %; HCT 36.8 % (40.0-50.0); HGB 10.4 g/dL (13.5-17.5); Immature Grans % 4.7 %; MCH 21.5 pg (27.0-33.0); MCHC 28.3 % (32.0-36.0); MCV 76 fL (80-95); MPV 9.7 fL (8.0-11.0); Nucleated RBC 0.3 % (0.0-0.3); Platelet Count 230 10^3/uL (130-400); RBC 4.83 10^6/uL (4.36-5.78); RDW 18.1 % (11.8-14.1); RDW-SD 49.4 fL; WBC 11.84 10^3/uL (4.4-10.8)
[2024-04-04 08:26] LABS: INR 1.1 (0.9-1.1)
[2024-04-04 08:31] LABS: ALT 60 U/L (16-63); AST 25 U/L (15-37); Alkaline Phosphatase 94 U/L (46-116); Anion Gap 11.3 mmol/L (3-11); BUN 62 mg/dL (7-18); Bilirubin, Direct 0.2 mg/dL (0.0-0.2); Bilirubin, Total 0.43 mg/dL (0.2-1.0); CO2 25.7 mmol/L (21.0-32.0); Calcium 9.2 mg/dL (8.5-10.1); Chloride 98 mmol/L (98-107); Creatine Kinase 58 U/L (39-308); Estimated GFR 38.69 (mL/min/1.73m2); Glucose 130 mg/dL (74-106); LDH 203 U/L (85-227); Magnesium 2.6 mg/dL (1.8-2.4); PHOSPHORUS 4.4 mg/dL (2.6-4.7); Potassium 3.6 mmol/L (3.5-5.1); Sodium 135 mmol/L (136-145); Total Protein 7.1 g/dL (6.4-8.2); Uric Acid 5.6 mg/dL (3.5-7.2)
[2024-04-04 08:44] LABS: Absolute Eosinophil Count 0.24 10^3/uL (0.0-0.7); Absolute Lymphocyte Count 1.18 10^3/uL (1.2-3.4); Absolute Neutrophil Count 9.12 10^3/uL (1.2-6.7); Bands % 2 %
[2024-04-05 13:04] LABS: Sirolimus 8.7 ng/mL (See Note)
== END 2024-04-04 03:52 | disposition home or self-care (01) ==
PROVIDERS: PCP Nurse Practitioner; Visit Provider Nurse Practitioner Adult Health
DX: I82.4Y3 Acute embolism and thrombosis of unspecified deep veins of proximal lower extremity, bilateral (principal); Z94.1 Heart transplant status
CPT/HCPCS: 36415; 80053; 80076; 82550; 80195; 83615; 83735; 84100; 84550; 85025; 85610

== ENCOUNTER 2024-04-18 03:41 | Outpatient (CLI) | payer BC, SELFPAY ==
[2024-04-18 10:23] LABS: Abs Immature Grans 0.03 10^3/uL (0.0-0.06); Absolute Basophil Count 0.03 10^3/uL (0.0-0.2); Absolute Eosinophil Count 0.15 10^3/uL (0.0-0.7); Absolute Lymphocyte Count 0.99 10^3/uL (1.2-3.4); Absolute Monocyte Count 0.57 10^3/uL (0.1-0.8); Basophils % 0.5 %; Eosinophils % 2.5 %; HCT 39.6 % (40.0-50.0); HGB 10.9 g/dL (13.5-17.5); Immature Grans % 0.5 %; Lymphocytes % 16.3 %; MCH 21.3 pg (27.0-33.0); MCV 78 fL (80-95); MPV 9.9 fL (8.0-11.0); Monocytes % 9.4 %; Neutrophils % 70.8 %; Platelet Count 189 10^3/uL (130-400); RBC 5.11 10^6/uL (4.36-5.78); RDW 18.6 % (11.8-14.1); RDW-SD 51.6 fL; WBC 6.07 10^3/uL (4.4-10.8)
[2024-04-18 10:36] LABS: ALT 33 U/L (16-63); AST 28 U/L (15-37); Albumin 3.9 g/dL (3.4-5.0); Alkaline Phosphatase 93 U/L (46-116); Anion Gap 9.2 mmol/L (3-11); BUN 35 mg/dL (7-18); Bilirubin, Direct 0.2 mg/dL (0.0-0.2); Bilirubin, Total 0.55 mg/dL (0.2-1.0); CO2 29.8 mmol/L (21.0-32.0); CREATININE 2.2 mg/dL (0.70-1.30); Calcium 8.9 mg/dL (8.5-10.1); Chloride 98 mmol/L (98-107); Estimated GFR 34.51 (mL/min/1.73m2); Glucose 190 mg/dL (74-106); Magnesium 2.4 mg/dL (1.8-2.4); Potassium 3.3 mmol/L (3.5-5.1); Sodium 137 mmol/L (136-145); Total Protein 6.9 g/dL (6.4-8.2)
[2024-04-18 10:49] LABS: Diff Comment RBC Morph Reviewed; Hypochromasia 2+; MCHC 27.5 % (32.0-36.0)
[2024-04-18 10:51] LABS: Creatine Kinase 126 U/L (39-308); LDH 299 U/L (85-227); PHOSPHORUS 3.2 mg/dL (2.6-4.7)
[2024-04-18 10:54] LABS: INR 1.1 (0.9-1.1); Prothrombin Time 11.3 sec (9.1-11.1)
[2024-04-19 11:55] LABS: Sirolimus 11.8 ng/mL (See Note)
== END 2024-04-18 03:42 | disposition home or self-care (01) ==
LOC: LBO 03:41
PROVIDERS: PCP Nurse Practitioner; Visit Provider Nurse Practitioner Adult Health
DX: I82.4Y3 Acute embolism and thrombosis of unspecified deep veins of proximal lower extremity, bilateral (principal); Z94.1 Heart transplant status
CPT/HCPCS: 80053; 80076; 82550; 80195; 83615; 83735; 84100; 84550; 85025; 85610

== ENCOUNTER 2024-04-25 03:04 | Outpatient (CLI) | payer BC, SELFPAY ==
[2024-04-25 07:33] LABS: Absolute Eosinophil Count 0.07 10^3/uL (0.0-0.7); Absolute Monocyte Count 0.79 10^3/uL (0.1-0.8); Absolute Neutrophil Count 5.02 10^3/uL (1.2-6.7); HCT 37.8 % (40.0-50.0); HGB 10.7 g/dL (13.5-17.5); Immature Grans % 1.5 %; Lymphocytes % 13.1 %; MCH 21.1 pg (27.0-33.0); MCHC 28.3 % (32.0-36.0); MCV 75 fL (80-95); MPV 9.1 fL (8.0-11.0); Monocytes % 11.5 %; Neutrophils % 72.9 %; Nucleated RBC 0.4 % (0.0-0.3); Platelet Count 214 10^3/uL (130-400); RBC 5.07 10^6/uL (4.36-5.78); RDW 17.6 % (11.8-14.1); RDW-SD 47.1 fL; WBC 6.88 10^3/uL (4.4-10.8)
[2024-04-25 07:44] LABS: INR 1.2 (0.9-1.1); Prothrombin Time 11.8 sec (9.1-11.1)
[2024-04-25 07:50] LABS: ALT 53 U/L (16-63); AST 33 U/L (15-37); Alkaline Phosphatase 94 U/L (46-116); Anion Gap 8.7 mmol/L (3-11); BUN 61 mg/dL (7-18); Bilirubin, Direct 0.3 mg/dL (0.0-0.2); Bilirubin, Total 0.56 mg/dL (0.2-1.0); CO2 31.3 mmol/L (21.0-32.0); CREATININE 2.4 mg/dL (0.70-1.30); Calcium 9.3 mg/dL (8.5-10.1); Chloride 95 mmol/L (98-107); Creatine Kinase 97 U/L (39-308); Estimated GFR 31.09 (mL/min/1.73m2); Glucose 131 mg/dL (74-106); LDH 220 U/L (85-227); Magnesium 2.6 mg/dL (1.8-2.4); Potassium 3.1 mmol/L (3.5-5.1); Sodium 135 mmol/L (136-145); Total Protein 6.6 g/dL (6.4-8.2); Uric Acid 7.6 mg/dL (3.5-7.2)
[2024-04-26 12:16] LABS: Sirolimus 13.5 ng/mL (See Note)
== END 2024-04-25 03:05 | disposition home or self-care (01) ==
LOC: LBO 03:05
PROVIDERS: PCP Nurse Practitioner; Visit Provider Nurse Practitioner Adult Health
DX: Z94.1 Heart transplant status (principal)
CPT/HCPCS: 36415; 80053; 80076; 82550; 80195; 83615; 83735; 84100; 84550; 85025; 85610